=== PATIENT | female | born 1935 | race Caucasian/White ===

== ENCOUNTER 2016-03-27 08:32 | Outpatient (RCR) | payer MEDICARE ==
[2016-03-27 09:01] LABS: BASOPHILS % (AUTO) 1 % (0-2); EOSINOPHILS # (AUTO) 0.5 10^3uL; EOSINOPHILS % (AUTO) 5 % (0-4); LYMPHOCYTES # (AUTO) 2.4 X10^3; MEAN CORPUSCULAR HEMOGLOBIN 30.1 PG (26.0-34.0); MEAN CORPUSCULAR HGB CONC 33.1 g/dL (31.0-37.0); MEAN CORPUSCULAR VOLUME 91 FL (80-100); MEAN PLATELET VOLUME 10.5 FL (6.0-9.5); MONOCYTES # (AUTO) 1.3 X10^3; MONOCYTES % (AUTO) 12 % (3-11); NEUTROPHILS # (AUTO) 6.2 X10^3; NEUTROPHILS % (AUTO) 59 % (51-67); PLATELET COUNT 214 10^3uL (150-450); WHITE BLOOD COUNT 10.43 10^3uL (4.0-11.0)
[2016-03-27 09:18] LABS: ALBUMIN 4.1 g/dL (3.4-5.0); ANION GAP 16.2 MEQ/L (3-15); CALCULATED IONIZED CALCIUM 3.9 mg/dL (3.8-4.6); PHOSPHORUS 3.7 mg/dL (2.4-4.9); TOTAL PROTEIN 8.6 g/dL (6.4-8.5)
[2016-04-07 10:45] LABS: PML/RARA SPECIMEN BLOOD
[2016-06-19 16:09] LABS: MEAN CORPUSCULAR HEMOGLOBIN 30.8 PG (26.0-34.0); MEAN CORPUSCULAR HGB CONC 33.7 g/dL (31.0-37.0); MEAN CORPUSCULAR VOLUME 91 FL (80-100); MEAN PLATELET VOLUME 10.5 FL (6.0-9.5); PLATELET COUNT 207 10^3uL (150-450)
[2016-06-19 16:18] LABS: ALBUMIN 4.2 g/dL (3.4-5.0); ANION GAP 14.8 MEQ/L (3-15); CALCULATED IONIZED CALCIUM 3.6 mg/dL (3.8-4.6); TOTAL PROTEIN 8.2 g/dL (6.4-8.5)
[2016-06-19 16:48] LABS: BAND NEUTROPHILS % 0 % (0-6); EOSINOPHILS % 8 % (0-4); LYMPHOCYTES # 3.7 #; MONOCYTES % 11 % (3-11); RBC MORPH NORMAL (NORMAL); SEGMENTED NEUTROPHILS % 44 % (51-67); TOTAL CELLS COUNTED 100
== END 2016-06-25 | disposition home or self-care (01) ==
LOC: LAB 08:32
PROVIDERS: ATTEND Internal Medicine Hematology & Oncology
DX: Z85.79 Personal history of other malignant neoplasms of lymphoid, hematopoietic and related tissues (principal); C50.111 Malignant neoplasm of central portion of right female breast
CPT/HCPCS: 36415; 80053; 81315; 83615; 83735; 84100; 85007; 85025; 85027

== ENCOUNTER → 2016-06-29 | Outpatient (CLI) | payer MEDICARE | LOC: RAD 09:25 | PROVIDERS: ATTEND Internal Medicine Hematology & Oncology | DX: R94.5 Abnormal results of liver function studies (principal); Z90.49 Acquired absence of other specified parts of digestive tract | CPT/HCPCS: 76705 ==

== ENCOUNTER → 2016-09-04 | Outpatient (CLI) | payer MEDICARE ==
[~2016-09-04] MED LIST: ASPI-504 PO; ASPI-586 PO; ATN50T PO; BUME1TAB4 PO; FAMO20TA45 PO; HDR4T PO; HYDR12.56 PO; LABE100T PO; LABE300T2 PO; LETR2.5T PO; LINE600T; LISI5TAB14 PO; LSNP20T PO; MAGN400T26 PO; METO-274; MS15TCR; ONDA4TAB41 PO; ONDA4TAB8 PO; POSA200O PO; POTA20TA7 PO; PREG50CA2 PO; TRET10CA2 PO; [UNRECOGNIZED DRUG - OTHER] PO
[2016-09-04 08:42] LABS: BASOPHILS % (AUTO) 1 % (0-2); EOSINOPHILS # (AUTO) 0.3 10^3uL; EOSINOPHILS % (AUTO) 3 % (0-4); LYMPHOCYTES # (AUTO) 3.3 X10^3; MEAN CORPUSCULAR HEMOGLOBIN 31.1 PG (26.0-34.0); MEAN CORPUSCULAR HGB CONC 33.2 g/dL (31.0-37.0); MEAN CORPUSCULAR VOLUME 94 FL (80-100); MEAN PLATELET VOLUME 10.2 FL (6.0-9.5); MONOCYTES # (AUTO) 1.3 X10^3; MONOCYTES % (AUTO) 13 % (3-11); NEUTROPHILS # (AUTO) 4.7 X10^3; NEUTROPHILS % (AUTO) 49 % (51-67); PLATELET COUNT 155 10^3uL (150-450); WHITE BLOOD COUNT 9.59 10^3uL (4.0-11.0)
[2016-09-04 09:01] LABS: ALBUMIN 3.7 g/dL (3.4-5.0); ANION GAP 14.7 MEQ/L (3-15); CALCULATED IONIZED CALCIUM 3.6 mg/dL (3.8-4.6); TOTAL PROTEIN 8.3 g/dL (6.4-8.5)
[2016-09-07 13:51] LABS: PML/RARA SPECIMEN BLOOD
== END ==
LOC: LAB 05-15 08:11
PROVIDERS: ATTEND Internal Medicine Hematology & Oncology
DX: C50.111 Malignant neoplasm of central portion of right female breast (principal)
CPT/HCPCS: 36415; 80053; 81315; 83615; 83735; 84100; 85025

== ENCOUNTER 2016-09-28 17:44 | Emergency (ER) | payer MEDICARE ==
[~2016-09-28] VITALS: Ht 160 cm; Wt 76.0 kg
--- OUTSIDE RECORDS SUMMARY | 2016-09-28 17:50 | XMS REPORT ---
Author Author [facility], [facility] - Organization Unknown Address Unknown Phone Unavailable Allergies, Adverse Reactions, Alerts No Latex Allergy.No IV Contrast Allergy.No Known Drug Allergies.No Known Food Allergies.No Known Allergies. Problems Breathing Pattern ImpairmentStatus:Resolved. ChemotherapyStatus:Resolved. Fluid Volume High LevelStatus:Active. Fluid Volume Low Level RiskStatus:Resolved. Infection of SkinStatus:Active. Knowledge Low LevelStatus:Active. PainStatus: Resolved. PainStatus:Active. PancytopeniaStatus:Active. Procedures No Procedures Documented. Medication It is the responsibility of the patient or patient commissary representative to confirm the list of medications with either the patient's personal care provider or the patient's follow-up care provider to ensure the patient has an appropriate list of medications to take at home. Discharge medicationsondansetron 4 mg Tablet, Rapid Dissolve, Ordered By: Reyes Jaramillo Page Directions: 1 tablet oral every six hours PRN N/V USE THIRD - PO Additional Instructions: USE UNLESS UNABLE TO TAKE PO metoprolol succinate (ToPROL XL) 100 mg Tablet Extended Release 24 hr, Ordered By: Reyes Jaramillo Page Directions: 1 tablet oral twice a day magnesium oxide 400 mg Tablet, Ordered By: Reyes Jaramillo Page Directions: 1 tablet oral three times a day during meal Additional Instructions: EQ: 240 MG ELEMENTAL MAGNESIUM lisinopril 10 mg Tablet, Ordered By: Reyes Jaramillo Page Directions: 1 tablet oral daily at bedtime letrozole (FemARA) 2.5 mg Tablet, Ordered By: Reyes Jaramillo Page Directions: 1 tablet oral daily HYDROcodone-acetaminophen 5 mg-500 mg Tablet, Ordered By: Reyes Jaramillo Page Directions: 1-2 TAB oral Q3H PRN _ Moderate Pain dextromethorphan-guaifenesin 100 mg-10 mg/5 mL Syrup, Ordered By: Reyes Jaramillo Page Directions: 10 mL oral every four hours PRN COUGH bumetanide 1 mg Tablet, Ordered By: Reyes Vyas Directions: 2 tablet oral BID (9 16) potassium chloride (Klor-Con M20) 20 mEq Tablet, ER Particles/Crystals, Ordered By: Reyes Vyas Directions: 2 tablet oral twice a day during meal Additional Instructions: GIVE WITH MEALS OR FOOD Liposomal Amphotericin B 380 mg IV daily (in [facility]) Stopped medicationseye vitamin; 1 tablet oral daily; last taken at home unknown b12; 1 tablet oral daily; last taken at home unknown hydrochlorothiazide 25 mg Tablet Directions: 0.5 tablet oral daily atenolol 50 mg Tablet Directions: 1 tablet oral daily at bedtime laBETalol 300 mg Tablet Directions: 0.5 tablet oral twice a day pepcid; 1 tablet oral daily; last taken at home unknown LORazepam 0.5 mg Tablet Directions: 1 tablet oral 30 minutes before procedure- bone marrow biopsy PRN bone marrow biopsy Results LAB--BEDSIDE TESTING from 07/10/2012 1:24 PMGlucose NPT 157 mg/dL H (70-100 mg/dL )LAB--BEDSIDE TESTING from 07/15/2012 10:54 AMGlucose NPT 345 mg/dL H (70-100 mg /dL)LAB--BEDSIDE TESTING from 07/15/2012 3:36 PMGlucose NPT 307 mg/dL H (70-100 mg/dL)LAB--BEDSIDE TESTING from 07/15/2012 9:49 PMGlucose NPT 278 mg/dL H (70- 100 mg/dL)LAB--BEDSIDE TESTING from 07/16/2012 6:12 AMGlucose NPT 235 mg/dL H ( 70-100 mg/dL)LAB--BEDSIDE TESTING from 07/16/2012 9:20 AMGlucose NPT 255 mg/dL H (70-100 mg/dL)LAB--BEDSIDE TESTING from 07/16/2012 11:32 AMGlucose NPT 255 mg/ dL H (70-100 mg/dL)LAB--BEDSIDE TESTING from 07/16/2012 3:09 PMGlucose NPT 204 mg/dL H (70-100 mg/dL)LAB--BEDSIDE TESTING from 07/16/2012 11:04 PMGlucose NPT 269 mg/dL H (70-100 mg/dL)LAB--BEDSIDE TESTING from 07/17/2012 5:12 AMGlucose NPT 197 mg/dL H (70-100 mg/dL)LAB--BEDSIDE TESTING from 07/17/2012 10:28 AMGlucose NPT 290 mg/dL H (70-100 mg/dL)LAB--BEDSIDE TESTING from 07/17/2012 4: 10 PMGlucose NPT 220 mg/dL H (70-100 mg/dL)LAB--BEDSIDE TESTING from 07/17/2012 10:22 PMGlucose NPT 289 mg/dL H (70-100 mg/dL)LAB--BEDSIDE TESTING from 2012 5:13 AMGlucose NPT 221 mg/dL H (70-100 mg/dL)LAB--BEDSIDE TESTING from 11:06 AMGlucose NPT 284 mg/dL H (70-100 mg/dL)LAB--BEDSIDE TESTING from 07/18/2012 3:44 PMGlucose NPT 298 mg/dL H (70-100 mg/dL)LAB--BEDSIDE TESTING from 07/18/2012 10:02 PMGlucose NPT 257 mg/dL H (70-100 mg/dL)LAB-- BEDSIDE TESTING from 07/19/2012 5:14 AMGlucose NPT 219 mg/dL H (70-100 mg/dL)LAB --BEDSIDE TESTING from 07/19/2012 10:28 AMGlucose NPT 206 mg/dL H (70-100 mg/dL) LAB--BEDSIDE TESTING from 07/19/2012 4:08 PMGlucose NPT 308 mg/dL H (70-100 mg/ dL)LAB--BEDSIDE TESTING from 07/19/2012 10:45 PMGlucose NPT 276 mg/dL H (70-100 mg/dL)LAB--BEDSIDE TESTING from 07/20/2012 5:50 AMGlucose NPT 203 mg/dL H (70- 100 mg/dL)LAB--BEDSIDE TESTING from 07/20/2012 10:46 AMGlucose NPT 231 mg/dL H ( 70-100 mg/dL)LAB--BEDSIDE TESTING from 07/20/2012 3:16 PMGlucose NPT 368 mg/dL H (70-100 mg/dL)LAB--BEDSIDE TESTING from 07/20/2012 11:02 PMGlucose NPT 332 mg/ dL H (70-100 mg/dL)LAB--BEDSIDE TESTING from 07/21/2012 5:12 AMGlucose NPT 235 mg/dL H (70-100 mg/dL)LAB--BEDSIDE TESTING from 07/21/2012 11:32 AMGlucose NPT 211 mg/dL H (70-100 mg/dL)LAB--BEDSIDE TESTING from 07/21/2012 4:14 PMGlucose NPT 266 mg/dL H (70-100 mg/dL)LAB--BEDSIDE TESTING from 07/21/2012 9:31 PMGlucose NPT 284 mg/dL H (70-100 mg/dL)LAB--BEDSIDE TESTING from 07/22/2012 6: 11 AMGlucose NPT 194 mg/dL H (70-100 mg/dL)LAB--BEDSIDE TESTING from 07/22/2012 11:46 AMGlucose NPT 396 mg/dL H (70-100 mg/dL)LAB--BEDSIDE TESTING from 2012 3:16 PMGlucose NPT 226 mg/dL H (70-100 mg/dL)LAB--BEDSIDE TESTING from 11:00 PMGlucose NPT 322 mg/dL H (70-100 mg/dL)LAB--BEDSIDE TESTING from 07/23/2012 6:11 AMGlucose NPT 177 mg/dL H (70-100 mg/dL)LAB--BEDSIDE TESTING from 07/23/2012 10:37 AMGlucose NPT 171 mg/dL H (70-100 mg/dL)LAB-- BEDSIDE TESTING from 07/23/2012 5:23 PMGlucose NPT 307 mg/dL H (70-100 mg/dL)LAB --BEDSIDE TESTING from 07/23/2012 10:57 PMGlucose NPT 292 mg/dL H (70-100 mg/dL) LAB--BEDSIDE TESTING from 07/24/2012 5:38 AMGlucose NPT 219 mg/dL H (70-100 mg/ dL)LAB--BEDSIDE TESTING from 07/24/2012 11:47 AMGlucose NPT 194 mg/dL H (70-100 mg/dL)LAB--BEDSIDE TESTING from 07/24/2012 4:08 PMGlucose NPT 94 mg/dL (70-100 mg/dL)LAB--BEDSIDE TESTING from 07/24/2012 10:55 PMGlucose NPT 243 mg/dL H (70- 100 mg/dL)LAB--BEDSIDE TESTING from 07/25/2012 5:56 AMGlucose NPT 113 mg/dL H ( 70-100 mg/dL)LAB--BEDSIDE TESTING from 07/25/2012 10:25 AMGlucose NPT 139 mg/dL H (70-100 mg/dL)LAB--BEDSIDE TESTING from 07/25/2012 3:34 PMGlucose NPT 100 mg/ dL (70-100 mg/dL)LAB--BEDSIDE TESTING from 07/25/2012 8:44 PMGlucose NPT 182 mg/ dL H (70-100 mg/dL)LAB--BEDSIDE TESTING from 07/26/2012 6:08 AMGlucose NPT 96 mg /dL (70-100 mg/dL)LAB--BEDSIDE TESTING from 07/26/2012 10:01 AMGlucose NPT 122 mg/dL H (70-100 mg/dL)LAB--BEDSIDE TESTING from 07/26/2012 2:52 PMGlucose NPT 92 mg/dL (70-100 mg/dL)LAB--BEDSIDE TESTING from 07/26/2012 8:10 PMGlucose NPT 151 mg/dL H (70-100 mg/dL)LAB--BEDSIDE TESTING from 07/27/2012 5:07 AMGlucose NPT 99 mg/dL (70-100 mg/dL)LAB--BEDSIDE TESTING from 07/27/2012 11:13 AMGlucose NPT 103 mg/dL H (70-100 mg/dL)LAB--BEDSIDE TESTING from 07/27/2012 2:20 PMGlucose NPT 132 mg/dL H (70-100 mg/dL)LAB--BEDSIDE TESTING from 07/27/2012 10: 16 PMGlucose NPT 240 mg/dL H (70-100 mg/dL)LAB--BEDSIDE TESTING from 07/28/2012 4:54 AMGlucose NPT 154 mg/dL H (70-100 mg/dL)LAB--BEDSIDE TESTING from 2012 5:30 AMGlucose NPT 135 mg/dL H (70-100 mg/dL)LAB--BEDSIDE TESTING from 10:54 AMGlucose NPT 66 mg/dL L (70-100 mg/dL)LAB--BEDSIDE TESTING from 07/28/2012 11:47 AMGlucose NPT 89 mg/dL (70-100 mg/dL)LAB--BEDSIDE TESTING from 07/28/2012 2:54 PMGlucose NPT 97 mg/dL (70-100 mg/dL)LAB--BEDSIDE TESTING from 6:19 PMGlucose NPT 193 mg/dL H (70-100 mg/dL)LAB--BEDSIDE TESTING from 07/28/2012 9:23 PMGlucose NPT 248 mg/dL H (70-100 mg/dL)LAB--BEDSIDE TESTING from 07/29/2012 4:18 AMGlucose NPT 100 mg/dL (70-100 mg/dL)LAB--BEDSIDE TESTING from 07/29/2012 10:39 AMGlucose NPT 58 mg/dL L (70-100 mg/dL)LAB-- BEDSIDE TESTING from 07/29/2012 1:40 PMGlucose NPT 97 mg/dL (70-100 mg/dL)LAB-- BEDSIDE TESTING from 07/29/2012 2:56 PMGlucose NPT 81 mg/dL (70-100 mg/dL)LAB-- BEDSIDE TESTING from 07/29/2012 10:12 PMGlucose NPT 264 mg/dL H (70-100 mg/dL) LAB--BEDSIDE TESTING from 07/30/2012 5:57 AMGlucose NPT 62 mg/dL L (70-100 mg/dL )LAB--BEDSIDE TESTING from 07/30/2012 6:18 AMGlucose NPT 75 mg/dL (70-100 mg/dL) LAB--BEDSIDE TESTING from 07/30/2012 10:05 AMGlucose NPT 93 mg/dL (70-100 mg/dL) LAB--BEDSIDE TESTING from 07/30/2012 2:19 PMGlucose NPT 201 mg/dL H (70-100 mg/ dL)LAB--BEDSIDE TESTING from 07/30/2012 9:47 PMGlucose NPT 340 mg/dL H (70-100 mg/dL)LAB--BEDSIDE TESTING from 07/31/2012 6:25 AMGlucose NPT 123 mg/dL H (70- 100 mg/dL)LAB--BEDSIDE TESTING from 07/31/2012 10:03 AMGlucose NPT 106 mg/dL H ( 70-100 mg/dL)LAB--BEDSIDE TESTING from 07/31/2012 2:23 PMGlucose NPT 226 mg/dL H (70-100 mg/dL)LAB--BEDSIDE TESTING from 07/31/2012 8:47 PMGlucose NPT 289 mg/ dL H (70-100 mg/dL)LAB--BEDSIDE TESTING from 08/01/2012 5:54 AMGlucose NPT 156 mg/dL H (70-100 mg/dL)LAB--BEDSIDE TESTING from 08/01/2012 10:14 AMGlucose NPT 159 mg/dL H (70-100 mg/dL)LAB--BEDSIDE TESTING from 08/01/2012 2:25 PMGlucose NPT 98 mg/dL (70-100 mg/dL)LAB--BEDSIDE TESTING from 08/01/2012 9:06 PMGlucose NPT 205 mg/dL H (70-100 mg/dL)LAB--BEDSIDE TESTING from 08/02/2012 5:20 AMGlucose NPT 110 mg/dL H (70-100 mg/dL)LAB--BEDSIDE TESTING from 08/02/2012 10: 30 AMGlucose NPT 168 mg/dL H (70-100 mg/dL)LAB--BEDSIDE TESTING from 08/02/2012 2:42 PMGlucose NPT 192 mg/dL H (70-100 mg/dL)LAB--BEDSIDE TESTING from 2012 9:32 PMGlucose NPT 218 mg/dL H (70-100 mg/dL)LAB--BEDSIDE TESTING from 6:03 AMGlucose NPT 42 mg/dL L (70-100 mg/dL)LAB--BEDSIDE TESTING from 6:42 AMGlucose NPT 63 mg/dL L (70-100 mg/dL)LAB--BEDSIDE TESTING from 08/03/2012 10:46 AMGlucose NPT 147 mg/dL H (70-100 mg/dL)LAB--BEDSIDE TESTING from 08/03/2012 2:38 PMGlucose NPT 95 mg/dL (70-100 mg/dL)LAB--BEDSIDE TESTING from 08/03/2012 9:29 PMGlucose NPT 209 mg/dL H (70-100 mg/dL)LAB--BEDSIDE TESTING from 08/04/2012 4:40 AMGlucose NPT 185 mg/dL H (70-100 mg/dL)LAB-- BEDSIDE TESTING from 08/04/2012 10:19 AMGlucose NPT 265 mg/dL H (70-100 mg/dL) LAB--BEDSIDE TESTING from 08/04/2012 4:58 PMGlucose NPT 157 mg/dL H (70-100 mg/ dL)LAB--BEDSIDE TESTING from 08/04/2012 9:27 PMGlucose NPT 268 mg/dL H (70-100 mg/dL)LAB--BEDSIDE TESTING from 08/05/2012 5:56 AMGlucose NPT 208 mg/dL H (70- 100 mg/dL)LAB--BEDSIDE TESTING from 08/05/2012 11:23 AMGlucose NPT 174 mg/dL H ( 70-100 mg/dL)LAB--BEDSIDE TESTING from 08/05/2012 2:21 PMGlucose NPT 166 mg/dL H (70-100 mg/dL)LAB--BEDSIDE TESTING from 08/05/2012 8:58 PMGlucose NPT 251 mg/dL H (70-100 mg/dL)LAB--BEDSIDE TESTING from 08/06/2012 5:36 AMGlucose NPT 112 mg/ dL H (70-100 mg/dL)LAB--BEDSIDE TESTING from 08/06/2012 10:06 AMGlucose NPT 144 mg/dL H (70-100 mg/dL)LAB--BEDSIDE TESTING from 08/06/2012 2:17 PMGlucose NPT 141 mg/dL H (70-100 mg/dL)LAB--BEDSIDE TESTING from 08/06/2012 9:47 PMGlucose NPT 260 mg/dL H (70-100 mg/dL)LAB--BEDSIDE TESTING from 08/07/2012 5:33 AMGlucose NPT 168 mg/dL H (70-100 mg/dL)LAB--BEDSIDE TESTING from 08/07/2012 11:16 AMGlucose NPT 126 mg/dL H (70-100 mg/dL)LAB--BEDSIDE TESTING from 08/07/2012 3: 42 PMGlucose NPT 99 mg/dL (70-100 mg/dL)LAB--BEDSIDE TESTING from 08/07/2012 9: 41 PMGlucose NPT 264 mg/dL H (70-100 mg/dL)LAB--BEDSIDE TESTING from 08/08/2012 5 :44 AMGlucose NPT 116 mg/dL H (70-100 mg/dL)LAB--BEDSIDE TESTING from 08/08/2012 10:05 AMGlucose NPT 165 mg/dL H (70-100 mg/dL)LAB--BEDSIDE TESTING from 2012 2:37 PMGlucose NPT 184 mg/dL H (70-100 mg/dL)LAB--BEDSIDE TESTING from 08/08 9:35 PMGlucose NPT 238 mg/dL H (70-100 mg/dL)LAB--BEDSIDE TESTING from 08/09/2012 4:55 AMGlucose NPT 69 mg/dL L (70-100 mg/dL)LAB--BEDSIDE TESTING from 08/09/2012 11:25 AMGlucose NPT 160 mg/dL H (70-100 mg/dL)LAB--BEDSIDE TESTING from 08/09/2012 9:09 PMGlucose NPT 200 mg/dL H (70-100 mg/dL)LAB--BEDSIDE TESTING from 08/10/2012 5:10 AMGlucose NPT 94 mg/dL (70-100 mg/dL)LAB--BEDSIDE TESTING from 08/10/2012 2:14 PMGlucose NPT 118 mg/dL H (70-100 mg/dL)LAB--BEDSIDE TESTING from 08/10/2012 10:39 PMGlucose NPT 268 mg/dL H (70-100 mg/dL)LAB-- BEDSIDE TESTING from 08/11/2012 5:33 AMGlucose NPT 121 mg/dL H (70-100 mg/dL)LAB- -BEDSIDE TESTING from 08/11/2012 11:14 AMGlucose NPT 129 mg/dL H (70-100 mg/dL) LAB--BEDSIDE TESTING from 08/11/2012 4:03 PMGlucose NPT 123 mg/dL H (70-100 mg/dL )LAB--BEDSIDE TESTING from 08/11/2012 9:00 PMGlucose NPT 173 mg/dL H (70-100 mg/ dL)LAB--BEDSIDE TESTING from 08/12/2012 5:28 AMGlucose NPT 78 mg/dL (70-100 mg/dL )LAB--BEDSIDE TESTING from 08/12/2012 10:40 AMGlucose NPT 128 mg/dL H (70-100 mg/ dL)LAB--BEDSIDE TESTING from 08/12/2012 1:53 PMGlucose NPT 188 mg/dL H (70-100 mg /dL)LAB--BEDSIDE TESTING from 08/12/2012 9:31 PMGlucose NPT 181 mg/dL H (70-100 mg/dL)LAB--BEDSIDE TESTING from 08/13/2012 4:59 AMGlucose NPT 175 mg/dL H (70- 100 mg/dL)LAB--BEDSIDE TESTING from 08/13/2012 11:14 AMGlucose NPT 193 mg/dL H ( 70-100 mg/dL)LAB--BEDSIDE TESTING from 08/13/2012 9:12 PMGlucose NPT 174 mg/dL H (70-100 mg/dL)LAB--BEDSIDE TESTING from 08/14/2012 5:32 AMGlucose NPT 31 mg/dL L (70-100 mg/dL)LAB--BEDSIDE TESTING from 08/14/2012 5:53 AMGlucose NPT 95 mg/ dL (70-100 mg/dL)LAB--BEDSIDE TESTING from 08/14/2012 6:54 AMGlucose NPT 170 mg/ dL H (70-100 mg/dL)LAB--BEDSIDE TESTING from 08/14/2012 9:54 AMGlucose NPT 153 mg/dL H (70-100 mg/dL)LAB--BEDSIDE TESTING from 08/14/2012 2:27 PMGlucose NPT 210 mg/dL H (70-100 mg/dL)LAB--BEDSIDE TESTING from 08/14/2012 9:19 PMGlucose NPT 268 mg/dL H (70-100 mg/dL)LAB--BEDSIDE TESTING from 08/15/2012 1:58 AMGlucose NPT 99 mg/dL (70-100 mg/dL)LAB--BEDSIDE TESTING from 08/15/2012 3:42 AMGlucose NPT 107 mg/dL H (70-100 mg/dL)LAB--BEDSIDE TESTING from 08/15/2012 5: 39 AMGlucose NPT 111 mg/dL H (70-100 mg/dL)LAB--BEDSIDE TESTING from 08/15/2012 9:55 AMGlucose NPT 106 mg/dL H (70-100 mg/dL)LAB--BEDSIDE TESTING from 2012 6:19 PMGlucose NPT 239 mg/dL H (70-100 mg/dL)LAB--BEDSIDE TESTING from 03/2013 10:29 PMGlucose NPT 274 mg/dL H (70-100 mg/dL)LAB--BEDSIDE TESTING from 08/16/2012 5:12 AMGlucose NPT 166 mg/dL H (70-100 mg/dL)LAB--BEDSIDE TESTING from 08/16/2012 10:03 AMGlucose NPT 207 mg/dL H (70-100 mg/dL)LAB-- BEDSIDE TESTING from 08/16/2012 2:28 PMGlucose NPT 156 mg/dL H (70-100 mg/dL)LAB --BEDSIDE TESTING from 08/16/2012 8:45 PMGlucose NPT 267 mg/dL H (70-100 mg/dL) LAB--BEDSIDE TESTING from 08/17/2012 5:51 AMGlucose NPT 106 mg/dL H (70-100 mg/ dL)LAB--BEDSIDE TESTING from 08/17/2012 10:00 AMGlucose NPT 178 mg/dL H (70-100 mg/dL)LAB--BEDSIDE TESTING from 08/17/2012 2:33 PMGlucose NPT 175 mg/dL H (70- 100 mg/dL)LAB--BEDSIDE TESTING from 08/17/2012 10:16 PMGlucose NPT 194 mg/dL H ( 70-100 mg/dL)LAB--BEDSIDE TESTING from 08/18/2012 6:04 AMGlucose NPT 130 mg/dL H (70-100 mg/dL)LAB--BEDSIDE TESTING from 08/18/2012 10:28 AMGlucose NPT 155 mg/ dL H (70-100 mg/dL)LAB--BEDSIDE TESTING from 08/18/2012 2:54 PMGlucose NPT 148 mg/dL H (70-100 mg/dL)LAB--BEDSIDE TESTING from 08/18/2012 9:17 PMGlucose NPT 233 mg/dL H (70-100 mg/dL)LAB--BEDSIDE TESTING from 08/19/2012 5:49 AMGlucose NPT 141 mg/dL H (70-100 mg/dL)LAB--BEDSIDE TESTING from 08/19/2012 10:12 AMGlucose NPT 188 mg/dL H (70-100 mg/dL)LAB--BEDSIDE TESTING from 08/19/2012 2: 33 PMGlucose NPT 249 mg/dL H (70-100 mg/dL)LAB--BEDSIDE TESTING from 08/19/2012 10:17 PMGlucose NPT 245 mg/dL H (70-100 mg/dL)LAB--BEDSIDE TESTING from 2012 5:13 AMGlucose NPT 123 mg/dL H (70-100 mg/dL)LAB--BEDSIDE TESTING from 10:52 AMGlucose NPT 141 mg/dL H (70-100 mg/dL)LAB--BEDSIDE TESTING from 08/20/2012 2:59 PMGlucose NPT 192 mg/dL H (70-100 mg/dL)LAB--BEDSIDE TESTING from 08/20/2012 10:29 PMGlucose NPT 301 mg/dL H (70-100 mg/dL)LAB-- BEDSIDE TESTING from 08/21/2012 4:56 AMGlucose NPT 144 mg/dL H (70-100 mg/dL)LAB --BEDSIDE TESTING from 08/21/2012 10:43 AMGlucose NPT 157 mg/dL H (70-100 mg/dL) LAB--BEDSIDE TESTING from 08/21/2012 2:10 PMGlucose NPT 130 mg/dL H (70-100 mg/ dL)LAB--BEDSIDE TESTING from 08/21/2012 9:21 PMGlucose NPT 260 mg/dL H (70-100 mg/dL)LAB--BEDSIDE TESTING from 08/22/2012 5:03 AMGlucose NPT 117 mg/dL H (70- 100 mg/dL)LAB--BEDSIDE TESTING from 08/22/2012 10:54 AMGlucose NPT 136 mg/dL H ( 70-100 mg/dL)LAB--BEDSIDE TESTING from 08/22/2012 3:02 PMGlucose NPT 265 mg/dL H (70-100 mg/dL)LAB--BEDSIDE TESTING from 08/22/2012 10:01 PMGlucose NPT 262 mg/ dL H (70-100 mg/dL)LAB--BLOOD BANK from 07/09/2012 5:35 PMAntibody Screen ( Indirect Karishma) NEG ABO and Rh O POS LAB--BLOOD BANK from 07/09/2012 5:50 PMPlatelet Pheresis LR Irradiated PP LR IR #2 [id number] selected 07/09/12 17:50 LHOGA (Preliminary Result)LAB--BLOOD BANK from 07/09/2012 9:36 PMPlatelet Pheresis LR Irradiated PP LR IR #2 [id number] p.Transfus 21:36 LAB--BLOOD BANK from 07/09/2012 10:19 PMCryoprecipitate (Preliminary Result)CRY Pool Thawed [id number] selected 07/09/12 22:19 LHOGA CRY Pool Thawed [id number] selected 07/09/12 22:19 LHOGALAB-- BLOOD BANK from 07/09/2012 10:42 PMCryoprecipitate CRY Pool Thawed [id number] p.Transfus 07/09/12 22:42 CRY Pool Thawed [id number] p.Transfus 07/09/12 22:42LAB--BLOOD BANK from 07/10/2012 7:49 AMRed Blood Cells LR Irradiated RCLR IR -1 [id number] selected 07/10/12 07:49 SXCHA (Preliminary Result) Platelet Pheresis LR Irradiated PP LR IR #2 [id number] selected 07/10/12 07:49 SXCHA (Preliminary Result)LAB--BLOOD BANK from 07/10/2012 12: 55 PMPlatelet Pheresis LR Irradiated PP LR IR #2 [id number] p.Transfus 07/10/12 12:55 LAB--BLOOD BANK from 07/10/2012 1:01 PMRed Blood Cells LR Irradiated RCLR IR -1 [id number] selected 07/10/12 13:01 KEYUR (Preliminary Result)LAB--BLOOD BANK from 07/10/2012 3:29 PMRed Blood Cells LR Irradiated RCLR IR -1 [id number] p.Transfus 10/17 15:29 LAB--BLOOD BANK from 07/10/2012 8:33 PMRed Blood Cells LR Irradiated RCLR IR -1 [id number] p.Transfus 07/10/12 20:33 LAB--BLOOD BANK from 07/10/2012 9:38 PMPlatelet Pheresis LR Irradiated PP LR IR #2 [id number] selected 07/10/12 21:38 PORSHA (Preliminary Result)LAB-- BLOOD BANK from 07/10/2012 11:05 PMPlatelet Pheresis LR Irradiated PP LR IR [id number] selected 07/10/12 23:05 CSAL (Preliminary Result) LAB--BLOOD BANK from 07/10/2012 11:25 PMPlatelet Pheresis LR Irradiated PP LR IR [id number] p.Transfus 07/10/12 23:25 LAB--BLOOD BANK from 07/11/2012 9:18 AMPlatelet Pheresis LR Irradiated PP LR IR #2 [id number] selected 07/11/12 09:18 KEYUR (Preliminary Result)LAB--BLOOD BANK from 07/11/2012 9:21 AMPlatelet Pheresis LR Irradiated PP LR IR #2 [id number] p.Transfus 07/11/12 09:21 LAB--BLOOD BANK from 07/12/2012 2: 18 PMPlatelet Pheresis LR Irradiated PP LR IR [id number] selected 07/12/12 14:18 SETHUGH (Preliminary Result)LAB--BLOOD BANK from 07/12/2012 3:15 PMPlatelet Pheresis LR Irradiated PP LR IR [id number] p.Transfus 07/12/12 15:15 LAB--BLOOD BANK from 07/14/2012 8:43 AMPlatelet Pheresis LR Irradiated PP LR IR #2 [id number] selected 08:43 SXCHA (Preliminary Result)LAB--BLOOD BANK from 07/14/2012 9:54 AMPlatelet Pheresis LR Irradiated PP LR IR #2 [id number] p.Transfus 07/14/12 09:54 LAB--BLOOD BANK from 07/14/2012 10:00 AMCryoprecipitate (Preliminary Result)CRY Pool Thawed [id number] selected 07/14/12 10:00 [facility] CRY Pool Thawed [id number] selected 07/14/12 10:00 [facility] 07/14/2012 11:27 AMCryoprecipitate CRY Pool Thawed [id number] p.Transfus 07/14/12 11:27 LAB--BLOOD BANK from 07/14/2012 12:35 PMCryoprecipitate CRY Pool Thawed [id number] p.Transfus 07/14/12 12 :35 LAB--BLOOD BANK from 07/15/2012 6:53 PMCryoprecipitate (Preliminary Result) CRY Pool Thawed [id number] selected 07/15/12 18:53 LHOGA CRY Pool Thawed [id number] selected 07/15/12 18:53 LHOGALAB-- BLOOD BANK from 07/15/2012 7:16 PMCryoprecipitate CRY Pool Thawed [id number] p.Transfus 07/15/12 19:16 CRY Pool Thawed [id number] p.Transfus 07/15/12 19:16LAB--BLOOD BANK from 07/17/2012 11:36 PMCryoprecipitate (Preliminary Result)CRY Pool Thawed [id number] selected 07/17/12 23:36 SBARR CRY Pool Thawed [id number] selected 07/17/12 23:36 SBARRLAB-- BLOOD BANK from 07/17/2012 11:43 PMCryoprecipitate CRY Pool Thawed [id number] p.Transfus 07/17/12 23:43 CRY Pool Thawed [id number] p.Transfus 07/17/12 23:43LAB--BLOOD BANK from 07/18/2012 6:39 PMPlatelet Pheresis LR Irradiated PP LR IR #3 [id number] selected 07/18/12 18:39 PORSHA (Preliminary Result)LAB-- BLOOD BANK from 07/18/2012 10:22 PMPlatelet Pheresis LR Irradiated PP LR IR #3 [id number] p.Transfus 07/18/12 22:22 LAB--BLOOD BANK from 2012 5:30 PMCryoprecipitate (Preliminary Result)CRY Pool Thawed [id number] selected 07/20/12 17:30 PSAMM CRY Pool Thawed [id number] selected 07/20/12 17:30 PSAMMLAB-- BLOOD BANK from 07/20/2012 6:30 PMCryoprecipitate CRY Pool Thawed [id number] p.Transfus 07/20/12 18:30 CRY Pool Thawed [id number] p.Transfus 07/20/12 18:30LAB--BLOOD BANK from 07/21/2012 10:36 AMAntibody Screen (Indirect Karishma) NEG ABO and Rh O POS LAB--BLOOD BANK from 07/21/2012 11:30 AMRed Blood Cells LR Irradiated (Preliminary Result)RCLR IR -1 [id number] selected 07/21/12 11:30 CBROW RCLR IR -1 [id number] selected 07/21/12 11:30 CBROWLAB-- BLOOD BANK from 07/21/2012 12:39 PMRed Blood Cells LR Irradiated RCLR IR -1 [id number] p.Transfus 07/21/12 12:39 LAB--BLOOD BANK from 2012 6:07 PMRed Blood Cells LR Irradiated RCLR IR -1 [id number] p.Transfus 07/21/12 18:07 LAB--BLOOD BANK from 07/23/2012 8:23 AMPlatelet Pheresis LR Irradiated PP LR IR #3 [id number] selected 08:23 THUGH (Preliminary Result)LAB--BLOOD BANK from 07/23/2012 9:58 AMPlatelet Pheresis LR Irradiated PP LR IR #3 [id number] p.Transfus 07/23/12 09:58 LAB--BLOOD BANK from 07/23/2012 10:45 AMCryoprecipitate (Preliminary Result)CRY Pool Thawed [id number] selected 07/23/12 10:45 THUGH CRY Pool Thawed [id number] selected 07/23/12 10:45 THUGHLAB-- BLOOD BANK from 07/23/2012 11:11 AMCryoprecipitate CRY Pool Thawed [id number] p.Transfus 07/23/12 11:11 LAB--BLOOD BANK from 07/23/2012 11:44 AMCryoprecipitate CRY Pool Thawed [id number] p.Transfus 07/23/12 11 :44 LAB--BLOOD BANK from 07/24/2012 5:19 AMPlatelet Pheresis LR Irradiated PP LR IR #2 [id number] selected 07/24/12 05:19 SBARR ( Preliminary Result)LAB--BLOOD BANK from 07/24/2012 5:41 AMPlatelet Pheresis LR Irradiated PP LR IR #2 [id number] p.Transfus 07/24/12 05:41 LAB --BLOOD BANK from 07/24/2012 12:12 PMRed Blood Cells LR Irradiated RCLR IR -1 [id number] selected 07/24/12 12:12 THUGH (Preliminary Result )LAB--BLOOD BANK from 07/24/2012 12:24 PMRed Blood Cells LR Irradiated RCLR IR -1 [id number] p.Transfus 07/24/12 12:24 LAB--BLOOD BANK from 9:21 AMPlatelet Pheresis LR Irradiated PP LR IR #3 [id number] selected 07/25/12 09:21 THUGH (Preliminary Result)LAB--BLOOD BANK from 07/25/2012 2:12 PMPlatelet Pheresis LR Irradiated PP LR IR #3 [id number] p.Transfus 07/25/12 14:12 LAB--BLOOD BANK from 07/26/2012 9: 13 AMAntibody Screen (Indirect Karishma) NEG ABO and Rh O POS LAB--BLOOD BANK from 07/26/2012 9:55 AMRed Blood Cells LR Irradiated RCLR IR -1 [id number] selected 07/26/12 09:55 CCHER (Preliminary Result)LAB--BLOOD BANK from 07/26/2012 10:22 AMRed Blood Cells LR Irradiated RCLR IR -1 [id number] p.Transfus 07/26/12 10:22 LAB--BLOOD BANK from 07/27/2012 9:19 AMPlatelet Pheresis LR Irradiated PP LR IR #2 [id number] selected 07/27/12 09:19 CCHER ( Preliminary Result)LAB--BLOOD BANK from 07/27/2012 10:05 AMPlatelet Pheresis LR Irradiated PP LR IR #2 [id number] p.Transfus 07/27/12 10:05 LAB --BLOOD BANK from 07/29/2012 5:51 AMPlatelet Pheresis LR Irradiated PP LR IR #2 [id number] selected 07/29/12 05:51 REVER (Preliminary Result)LAB--BLOOD BANK from 07/29/2012 6:34 AMPlatelet Pheresis LR Irradiated PP LR IR #2 [id number] p.Transfus 07/29/12 06:34 LAB--BLOOD BANK from 07/31/2012 6:30 AMPlatelet Pheresis LR Irradiated PP LR IR #2 [id number] selected 07/31/12 06:30 CSAL (Preliminary Result)LAB-- BLOOD BANK from 07/31/2012 6:41 AMPlatelet Pheresis LR Irradiated PP LR IR #2 [id number] p.Transfus 07/31/12 06:41 LAB--BLOOD BANK from 2012 9:00 AMAntibody Screen (Indirect Karisham) NEG ABO and Rh O POS LAB--BLOOD BANK from 07/31/2012 9:56 AMRed Blood Cells LR Irradiated RCLR IR -1 [id number] selected 07/31/12 09:56 SXCHA (Preliminary Result)LAB--BLOOD BANK from 07/31/2012 10:38 AMRed Blood Cells LR Irradiated RCLR IR -1 [id number] p.Transfus 07/31/12 10:38 LAB--BLOOD BANK from 08/01/2012 6:14 AMPlatelet Pheresis LR Irradiated PP LR IR [id number] selected 08/01/12 06:14 SBARR ( Preliminary Result)LAB--BLOOD BANK from 08/01/2012 6:27 AMPlatelet Pheresis LR Irradiated PP LR IR [id number] p.Transfus 08/01/12 06:27 LAB --BLOOD BANK from 08/03/2012 9:44 AMPlatelet Pheresis LR Irradiated PP LR IR #2 [id number] selected 08/03/12 09:44 KEYUR (Preliminary Result)LAB--BLOOD BANK from 08/03/2012 11:09 AMPlatelet Pheresis LR Irradiated PP LR IR #2 [id number] p.Transfus 08/03/12 11:09 LAB--BLOOD BANK from 08/04/2012 10:27 AMABO and Rh O POS Antibody Screen (Indirect Karishma) NEG LAB--BLOOD BANK from 08/04/2012 11:10 AMRed Blood Cells LR Irradiated RCLR IR -1 [id number] selected 08/04/12 11:10 MSEVE (Preliminary Result)LAB--BLOOD BANK from 08/04/2012 11 :13 AMRed Blood Cells LR Irradiated RCLR IR -1 [id number] p.Transfus 08/04/12 11:13 LAB--BLOOD BANK from 08/06/2012 8:02 AMPlatelet Pheresis LR Irradiated PP LR IR #2 [id number] selected 08:02 SXCHA (Preliminary Result)LAB--BLOOD BANK from 08/06/2012 8:37 AMPlatelet Pheresis LR Irradiated PP LR IR #2 [id number] p.Transfus 08/06/12 08:37 LAB--BLOOD BANK from 08/09/2012 6:48 AMPlatelet Pheresis LR Irradiated PP LR IR #1 [id number] selected 06:48 MSEVE (Preliminary Result)LAB--BLOOD BANK from 08/09/2012 6:54 AMPlatelet Pheresis LR Irradiated PP LR IR #1 [id number] p.Transfus 08/09/12 06:54 LAB--BLOOD BANK from 08/10/2012 8:01 AMPlatelet Pheresis LR Irradiated PP LR IR #1 [id number] selected 08:01 CCHER (Preliminary Result)LAB--BLOOD BANK from 08/10/2012 12:10 PMPlatelet Pheresis LR Irradiated PP LR IR #1 [id number] p.Transfus 08/10/12 12:10 LAB--BLOOD BANK from 08/11/2012 11:50 AMPlatelet Pheresis LR Irradiated PP LR IR #3 [id number] selected 11:50 CBROW (Preliminary Result)LAB--BLOOD BANK from 08/11/2012 1:03 PMPlatelet Pheresis LR Irradiated PP LR IR #3 [id number] p.Transfus 08/11/12 13:03 LAB--BLOOD BANK from 08/12/2012 8:43 AMPlatelet Pheresis LR Irradiated PP LR IR #2 [id number] selected 08:43 MSEVE (Preliminary Result)LAB--BLOOD BANK from 08/12/2012 10:32 AMABO and Rh O POS Antibody Screen (Indirect Karishma) NEG LAB--BLOOD BANK from 08/12/2012 11:18 AMRed Blood Cells LR Irradiated (Preliminary Result)RCLR IR -1 [id number] selected 08/12/12 11:18 KEYUR RCLR IR -1 [id number] selected 08/12/12 11:18 [facility]-- BLOOD BANK from 08/12/2012 11:42 AMRed Blood Cells LR Irradiated RCLR IR -1 [id number] p.Transfus 08/12/12 11:42 LAB--BLOOD BANK from 08/13/2012 1:22 PMPlatelet Pheresis LR Irradiated LAB--CHEMISTRY from 07/09/2012 4:02 PMPotassium 3.4 mEq/L L (3.6-5.1 mEq/L) Magnesium 1.7 mg/dL L (1.8-2.5 mg/dL) Sodium 123 mEq/L L (136-144 mEq/L) LDH 285 U/L H (98-192 U/L) Phosphorus 4.4 mg/dL (2.4-4.7 mg/dL) Protein 6.4 g/dL (6.1-7.9 g/dL) Chloride 84 mEq/L L (99-109 mEq/L) CO2 25 mEq/L (22-32 mEq/L) Creatinine 0.86 mg/dL (0.44-1.03 mg/dL) eGFR >60 (>60- ) Globulin 2.5 g/dL (1.9-4.3 g/dL) Glucose 130 mg/dL H (70-100 mg/dL) Albumin 3.9 g/dL (3.5-4.8 g/dL) Alkaline Phosphatase 39 U/L (26-104 U/L) ALT (SGPT) 15 U/L (14-54 U/L) AST (SGOT) 25 U/L (15-41 U/L) Bilirubin Total 1.7 mg/dL H (0.2-1.2 mg/dL) BUN 15 mg/dL (4-20 mg/dL) Calcium 9.1 mg/dL (8.6-10.0 mg/dL) Calcium Ionized 1.20 mmol/L (1.19-1.41 mmol/L) Anion Gap 14 (3-20 )LAB--CHEMISTRY from 07/10/2012 3:51 AMPotassium 3.3 mEq/L L ( 3.6-5.1 mEq/L) LDH 253 U/L H (98-192 U/L) Sodium 129 mEq/L L (136-144 mEq/L) Protein 5.8 g/dL L (6.1-7.9 g/dL) Chloride 92 mEq/L L (99-109 mEq/L) CO2 29 mEq/L (22-32 mEq/L) Creatinine 0.87 mg/dL (0.44-1.03 mg/dL) eGFR >60 (>60- ) Globulin 2.5 g/dL (1.9-4.3 g/dL) Glucose 129 mg/dL H (70-100 mg/dL) Albumin 3.3 g/dL L (3.5-4.8 g/dL) Alkaline Phosphatase 38 U/L (26-104 U/L) ALT (SGPT) 15 U/L (14-54 U/L) AST (SGOT) 22 U/L (15-41 U/L) Bilirubin Total 1.3 mg/dL H (0.2-1.2 mg/dL) BUN 15 mg/dL (4-20 mg/dL) Calcium 8.7 mg/dL (8.6-10.0 mg/dL) Anion Gap 8 (3-20 )LAB--CHEMISTRY from 07/11/2012 4:59 AMPotassium 3.5 mEq/L L ( 3.6-5.1 mEq/L) LDH 286 U/L H (98-192 U/L) Sodium 126 mEq/L L (136-144 mEq/L) Phosphorus 4.1 mg/dL (2.4-4.7 mg/dL) Protein 5.9 g/dL L (6.1-7.9 g/dL) Chloride 93 mEq/L L (99-109 mEq/L) CO2 23 mEq/L (22-32 mEq/L) Creatinine 1.15 mg/dL H (0.44-1.03 mg/dL) eGFR 46 A (>60- ) Globulin 2.7 g/dL (1.9-4.3 g/dL) Glucose 153 mg/dL H (70-100 mg/dL) Albumin 3.2 g/dL L (3.5-4.8 g/dL) Alkaline Phosphatase 62 U/L (26-104 U/L) ALT (SGPT) 44 U/L (14-54 U/L) AST (SGOT) 62 U/L H (15-41 U/L) Bilirubin Total 2.4 mg/dL H (0.2-1.2 mg/dL) BUN 29 mg/dL H (4-20 mg/dL) Calcium 8.2 mg/dL L (8.6-10.0 mg/dL) Anion Gap 10 (3-20 )LAB--CHEMISTRY from 07/12/2012 5:18 AMPotassium 3.8 mEq/L ( 3.6-5.1 mEq/L) LDH 275 U/L H (98-192 U/L) Magnesium 2.1 mg/dL (1.8-2.5 mg/dL) Sodium 126 mEq/L L (136-144 mEq/L) Phosphorus 2.7 mg/dL (2.4-4.7 mg/dL) Protein 5.7 g/dL L (6.1-7.9 g/dL) Chloride 92 mEq/L L (99-109 mEq/L) CO2 22 mEq/L (22-32 mEq/L) Creatinine 0.86 mg/dL (0.44-1.03 mg/dL) eGFR >60 (>60- ) Globulin 2.6 g/dL (1.9-4.3 g/dL) Glucose 153 mg/dL H (70-100 mg/dL) Albumin 3.1 g/dL L (3.5-4.8 g/dL) Alkaline Phosphatase 60 U/L (26-104 U/L) ALT (SGPT) 44 U/L (14-54 U/L) AST (SGOT) 48 U/L H (15-41 U/L) Bilirubin Total 1.5 mg/dL H (0.2-1.2 mg/dL) BUN 26 mg/dL H (4-20 mg/dL) Calcium 8.2 mg/dL L (8.6-10.0 mg/dL) Calcium Ionized 1.11 mmol/L L (1.19-1.41 mmol/L) Anion Gap 12 (3-20 )LAB--CHEMISTRY from 07/13/2012 6:33 AMPotassium 3.9 mEq/L ( 3.6-5.1 mEq/L) LDH 305 U/L H (98-192 U/L) Magnesium 2.3 mg/dL (1.8-2.5 mg/dL) Sodium 123 mEq/L L (136-144 mEq/L) Phosphorus 2.6 mg/dL (2.4-4.7 mg/dL) Protein 5.5 g/dL L (6.1-7.9 g/dL) Chloride 92 mEq/L L (99-109 mEq/L) CO2 22 mEq/L (22-32 mEq/L) Creatinine 0.83 mg/dL (0.44-1.03 mg/dL) eGFR >60 (>60- ) Globulin 2.4 g/dL (1.9-4.3 g/dL) Glucose 208 mg/dL H (70-100 mg/dL) Albumin 3.1 g/dL L (3.5-4.8 g/dL) Alkaline Phosphatase 60 U/L (26-104 U/L) ALT (SGPT) 39 U/L (14-54 U/L) AST (SGOT) 31 U/L (15-41 U/L) Bilirubin Total 1.3 mg/dL H (0.2-1.2 mg/dL) BUN 26 mg/dL H (4-20 mg/dL) Calcium 8.4 mg/dL L (8.6-10.0 mg/dL) Calcium Ionized 1.19 mmol/L (1.19-1.41 mmol/L) Anion Gap 9 (3-20 )LAB--CHEMISTRY from 07/14/2012 6:57 AMPotassium 4.1 mEq/L ( 3.6-5.1 mEq/L) LDH 502 U/L H (98-192 U/L) Magnesium 2.4 mg/dL (1.8-2.5 mg/dL) Sodium 125 mEq/L L (136-144 mEq/L) Phosphorus 2.3 mg/dL L (2.4-4.7 mg/dL) Protein 5.8 g/dL L (6.1-7.9 g/dL) Chloride 93 mEq/L L (99-109 mEq/L) CO2 23 mEq/L (22-32 mEq/L) Creatinine 0.82 mg/dL (0.44-1.03 mg/dL) eGFR >60 (>60- ) Globulin 2.9 g/dL (1.9-4.3 g/dL) Glucose 263 mg/dL H (70-100 mg/dL) Albumin 2.9 g/dL L (3.5-4.8 g/dL) Alkaline Phosphatase 75 U/L (26-104 U/L) ALT (SGPT) 31 U/L (14-54 U/L) AST (SGOT) 29 U/L (15-41 U/L) Bilirubin Total 1.2 mg/dL (0.2-1.2 mg/dL) BUN 32 mg/dL H (4-20 mg/dL) Calcium 8.9 mg/dL (8.6-10.0 mg/dL) Calcium Ionized 1.29 mmol/L (1.19-1.41 mmol/L) Anion Gap 9 (3-20 )LAB--CHEMISTRY from 07/15/2012 5:20 AMPotassium 4.4 mEq/L ( 3.6-5.1 mEq/L) Magnesium 2.3 mg/dL (1.8-2.5 mg/dL) LDH 659 U/L H (98-192 U/L) Sodium 124 mEq/L L (136-144 mEq/L) Phosphorus 2.6 mg/dL (2.4-4.7 mg/dL) Protein 5.9 g/dL L (6.1-7.9 g/dL) Calcium Ionized 1.35 mmol/L (1.19-1.41 mmol/L) Chloride 92 mEq/L L (99-109 mEq/L) CO2 22 mEq/L (22-32 mEq/L) Creatinine 0.88 mg/dL (0.44-1.03 mg/dL) eGFR >60 (>60- ) Globulin 2.9 g/dL (1.9-4.3 g/dL) Glucose 281 mg/dL H (70-100 mg/dL) Albumin 3.0 g/dL L (3.5-4.8 g/dL) Alkaline Phosphatase 75 U/L (26-104 U/L) ALT (SGPT) 26 U/L (14-54 U/L) AST (SGOT) 30 U/L (15-41 U/L) Bilirubin Total 1.1 mg/dL (0.2-1.2 mg/dL) BUN 36 mg/dL H (4-20 mg/dL) Calcium 9.1 mg/dL (8.6-10.0 mg/dL) Anion Gap 10 (3-20 )LAB--CHEMISTRY from 07/16/2012 4:40 AMPotassium 4.5 mEq/L ( 3.6-5.1 mEq/L) LDH 884 U/L H (98-192 U/L) Magnesium 2.1 mg/dL (1.8-2.5 mg/dL) Sodium 126 mEq/L L (136-144 mEq/L) Phosphorus 3.3 mg/dL (2.4-4.7 mg/dL) Protein 5.8 g/dL L (6.1-7.9 g/dL) Chloride 93 mEq/L L (99-109 mEq/L) Calcium Ionized 1.31 mmol/L (1.19-1.41 mmol/L) CO2 25 mEq/L (22-32 mEq/L) Creatinine 0.92 mg/dL (0.44-1.03 mg/dL) eGFR 59 A (>60- ) Globulin 2.7 g/dL (1.9-4.3 g/dL) Glucose 208 mg/dL H (70-100 mg/dL) Albumin 3.1 g/dL L (3.5-4.8 g/dL) Alkaline Phosphatase 61 U/L (26-104 U/L) ALT (SGPT) 33 U/L (14-54 U/L) AST (SGOT) 47 U/L H (15-41 U/L) Bilirubin Total 1.0 mg/dL (0.2-1.2 mg/dL) BUN 42 mg/dL H (4-20 mg/dL) Calcium 9.5 mg/dL (8.6-10.0 mg/dL) Anion Gap 8 (3-20 )LAB--CHEMISTRY from 07/17/2012 5:11 AMPotassium 5.1 mEq/L ( 3.6-5.1 mEq/L) LDH 1212 U/L H (98-192 U/L) Magnesium 2.3 mg/dL (1.8-2.5 mg/dL) Sodium 125 mEq/L L (136-144 mEq/L) Phosphorus 4.8 mg/dL H (2.4-4.7 mg/dL) Protein 5.8 g/dL L (6.1-7.9 g/dL) Uric Acid 5.4 mg/dL (2.6-8.0 mg/dL) Chloride 91 mEq/L L (99-109 mEq/L) Calcium Ionized 1.36 mmol/L (1.19-1.41 mmol/L) CO2 24 mEq/L (22-32 mEq/L) Creatinine 1.09 mg/dL H (0.44-1.03 mg/dL) eGFR 49 A (>60- ) Globulin 2.7 g/dL (1.9-4.3 g/dL) Glucose 203 mg/dL H (70-100 mg/dL) Albumin 3.1 g/dL L (3.5-4.8 g/dL) Alkaline Phosphatase 64 U/L (26-104 U/L) ALT (SGPT) 33 U/L (14-54 U/L) AST (SGOT) 54 U/L H (15-41 U/L) Bilirubin Total 1.0 mg/dL (0.2-1.2 mg/dL) BUN 54 mg/dL H (4-20 mg/dL) Calcium 9.4 mg/dL (8.6-10.0 mg/dL) Anion Gap 10 (3-20 )LAB--CHEMISTRY from 07/18/2012 4:34 AMPotassium 4.3 mEq/L ( 3.6-5.1 mEq/L) LDH 1497 U/L H (98-192 U/L) Magnesium 2.2 mg/dL (1.8-2.5 mg/dL) Sodium 122 mEq/L L (136-144 mEq/L) Phosphorus 4.8 mg/dL H (2.4-4.7 mg/dL) Protein 5.5 g/dL L (6.1-7.9 g/dL) Uric Acid 5.3 mg/dL (2.6-8.0 mg/dL) Calcium Ionized 1.24 mmol/L (1.19-1.41 mmol/L) Chloride 89 mEq/L L (99-109 mEq/L) CO2 23 mEq/L (22-32 mEq/L) Creatinine 1.10 mg/dL H (0.44-1.03 mg/dL) eGFR 48 A (>60- ) Globulin 2.6 g/dL (1.9-4.3 g/dL) Glucose 206 mg/dL H (70-100 mg/dL) Albumin 2.9 g/dL L (3.5-4.8 g/dL) Alkaline Phosphatase 70 U/L (26-104 U/L) ALT (SGPT) 30 U/L (14-54 U/L) AST (SGOT) 61 U/L H (15-41 U/L) Bilirubin Total 0.8 mg/dL (0.2-1.2 mg/dL) BUN 61 mg/dL H (4-20 mg/dL) Calcium 8.9 mg/dL (8.6-10.0 mg/dL) Anion Gap 10 (3-20 )LAB--CHEMISTRY from 07/19/2012 6:55 AMPotassium 4.8 mEq/L ( 3.6-5.1 mEq/L) LDH 1313 U/L H (98-192 U/L) Magnesium 2.4 mg/dL (1.8-2.5 mg/dL) Sodium 124 mEq/L L (136-144 mEq/L) Phosphorus 4.6 mg/dL (2.4-4.7 mg/dL) Protein 5.7 g/dL L (6.1-7.9 g/dL) Uric Acid 4.7 mg/dL (2.6-8.0 mg/dL) Chloride 91 mEq/L L (99-109 mEq/L) Calcium Ionized 1.33 mmol/L (1.19-1.41 mmol/L) CO2 22 mEq/L (22-32 mEq/L) Creatinine 1.13 mg/dL H (0.44-1.03 mg/dL) eGFR 47 A (>60- ) Globulin 2.7 g/dL (1.9-4.3 g/dL) Glucose 188 mg/dL H (70-100 mg/dL) Albumin 3.0 g/dL L (3.5-4.8 g/dL) Alkaline Phosphatase 73 U/L (26-104 U/L) ALT (SGPT) 26 U/L (14-54 U/L) AST (SGOT) 61 U/L H (15-41 U/L) Bilirubin Total 0.9 mg/dL (0.2-1.2 mg/dL) BUN 63 mg/dL H (4-20 mg/dL) Calcium 9.3 mg/dL (8.6-10.0 mg/dL) Anion Gap 11 (3-20 )LAB--CHEMISTRY from 07/20/2012 6:03 AMPotassium 4.9 mEq/L ( 3.6-5.1 mEq/L) LDH 1083 U/L H (98-192 U/L) Magnesium 2.4 mg/dL (1.8-2.5 mg/dL) Sodium 123 mEq/L L (136-144 mEq/L) Phosphorus 4.8 mg/dL H (2.4-4.7 mg/dL) Protein 5.0 g/dL L (6.1-7.9 g/dL) Uric Acid 4.4 mg/dL (2.6-8.0 mg/dL) Calcium Ionized 1.24 mmol/L (1.19-1.41 mmol/L) Chloride 90 mEq/L L (99-109 mEq/L) CO2 25 mEq/L (22-32 mEq/L) Creatinine 1.24 mg/dL H (0.44-1.03 mg/dL) eGFR 42 A (>60- ) Globulin 2.2 g/dL (1.9-4.3 g/dL) Glucose 189 mg/dL H (70-100 mg/dL) Albumin 2.8 g/dL L (3.5-4.8 g/dL) Alkaline Phosphatase 72 U/L (26-104 U/L) ALT (SGPT) 25 U/L (14-54 U/L) AST (SGOT) 51 U/L H (15-41 U/L) Bilirubin Total 0.7 mg/dL (0.2-1.2 mg/dL) BUN 68 mg/dL H (4-20 mg/dL) Calcium 8.7 mg/dL (8.6-10.0 mg/dL) Anion Gap 8 (3-20 )LAB--CHEMISTRY from 07/21/2012 6:10 AMPotassium 4.7 mEq/L ( 3.6-5.1 mEq/L) LDH 735 U/L H (98-192 U/L) Magnesium 2.4 mg/dL (1.8-2.5 mg/dL) Sodium 125 mEq/L L (136-144 mEq/L) Phosphorus 5.0 mg/dL H (2.4-4.7 mg/dL) Protein 5.0 g/dL L (6.1-7.9 g/dL) Uric Acid 4.3 mg/dL (2.6-8.0 mg/dL) Calcium Ionized 1.21 mmol/L (1.19-1.41 mmol/L) Chloride 93 mEq/L L (99-109 mEq/L) CO2 24 mEq/L (22-32 mEq/L) Creatinine 1.17 mg/dL H (0.44-1.03 mg/dL) eGFR 45 A (>60- ) Globulin 2.2 g/dL (1.9-4.3 g/dL) Glucose 192 mg/dL H (70-100 mg/dL) Albumin 2.8 g/dL L (3.5-4.8 g/dL) Alkaline Phosphatase 73 U/L (26-104 U/L) ALT (SGPT) 27 U/L (14-54 U/L) AST (SGOT) 45 U/L H (15-41 U/L) Bilirubin Total 0.8 mg/dL (0.2-1.2 mg/dL) BUN 72 mg/dL H (4-20 mg/dL) Calcium 8.6 mg/dL (8.6-10.0 mg/dL) Anion Gap 8 (3-20 )LAB--CHEMISTRY from 07/22/2012 4:50 AMPotassium 5.2 mEq/L H ( 3.6-5.1 mEq/L) LDH 654 U/L H (98-192 U/L) Magnesium 2.5 mg/dL (1.8-2.5 mg/dL) Sodium 127 mEq/L L (136-144 mEq/L) Phosphorus 5.3 mg/dL H (2.4-4.7 mg/dL) Protein 5.1 g/dL L (6.1-7.9 g/dL) Uric Acid 3.9 mg/dL (2.6-8.0 mg/dL) Chloride 94 mEq/L L (99-109 mEq/L) Calcium Ionized 1.24 mmol/L (1.19-1.41 mmol/L) CO2 24 mEq/L (22-32 mEq/L) Creatinine 1.09 mg/dL H (0.44-1.03 mg/dL) eGFR 49 A (>60- ) Globulin 2.3 g/dL (1.9-4.3 g/dL) Glucose 157 mg/dL H (70-100 mg/dL) Anion Gap 9 (3-20 ) Albumin 2.8 g/dL L (3.5-4.8 g/dL) Alkaline Phosphatase 72 U/L (26-104 U/L) ALT (SGPT) 36 U/L (14-54 U/L) AST (SGOT) 49 U/L H (15-41 U/L) Bilirubin Total 0.9 mg/dL (0.2-1.2 mg/dL) BUN 73 mg/dL H (4-20 mg/dL) Calcium 8.7 mg/dL (8.6-10.0 mg/dL)LAB--CHEMISTRY from 07/23/2012 6:46 AMPotassium 4.6 mEq/L (3.6-5.1 mEq/L) LDH 497 U/L H (98-192 U/L) Magnesium 2.4 mg/dL (1.8-2.5 mg/dL) Sodium 131 mEq/L L (136-144 mEq/L) Phosphorus 5.2 mg/dL H (2.4-4.7 mg/dL) Protein 5.1 g/dL L (6.1-7.9 g/dL) Uric Acid 3.7 mg/dL (2.6-8.0 mg/dL) Chloride 94 mEq/L L (99-109 mEq/L) Calcium Ionized 1.29 mmol/L (1.19-1.41 mmol/L) CO2 24 mEq/L (22-32 mEq/L) Creatinine 1.01 mg/dL (0.44-1.03 mg/dL) eGFR 53 A (>60- ) Globulin 2.2 g/dL (1.9-4.3 g/dL) Glucose 150 mg/dL H (70-100 mg/dL) Anion Gap 13 (3-20 ) Albumin 2.9 g/dL L (3.5-4.8 g/dL) Alkaline Phosphatase 80 U/L (26-104 U/L) ALT (SGPT) 49 U/L (14-54 U/L) AST (SGOT) 55 U/L H (15-41 U/L) Bilirubin Total 1.1 mg/dL (0.2-1.2 mg/dL) BUN 74 mg/dL H (4-20 mg/dL) Calcium 8.8 mg/dL (8.6-10.0 mg/dL)LAB--CHEMISTRY from 07/24/2012 4:34 AMPotassium 4.1 mEq/L (3.6-5.1 mEq/L) LDH 399 U/L H (98-192 U/L) Magnesium 2.4 mg/dL (1.8-2.5 mg/dL) Sodium 133 mEq/L L (136-144 mEq/L) Phosphorus 4.6 mg/dL (2.4-4.7 mg/dL) Protein 4.9 g/dL L (6.1-7.9 g/dL) Uric Acid 3.5 mg/dL (2.6-8.0 mg/dL) Chloride 99 mEq/L (99-109 mEq/L) Calcium Ionized 1.32 mmol/L (1.19-1.41 mmol/L) CO2 26 mEq/L (22-32 mEq/L) Creatinine 0.94 mg/dL (0.44-1.03 mg/dL) eGFR 58 A (>60- ) Globulin 2.2 g/dL (1.9-4.3 g/dL) Glucose 193 mg/dL H (70-100 mg/dL) Anion Gap 8 (3-20 ) Albumin 2.7 g/dL L (3.5-4.8 g/dL) Alkaline Phosphatase 84 U/L (26-104 U/L) ALT (SGPT) 55 U/L H (14-54 U/L) AST (SGOT) 53 U/L H (15-41 U/L) Bilirubin Total 1.0 mg/dL (0.2-1.2 mg/dL) BUN 73 mg/dL H (4-20 mg/dL) Calcium 8.7 mg/dL (8.6-10.0 mg/dL)LAB--CHEMISTRY from 07/25/2012 4:20 AMPotassium 3.9 mEq/L (3.6-5.1 mEq/L) Magnesium 2.4 mg/dL (1.8-2.5 mg/dL) LDH 377 U/L H (98-192 U/L) Sodium 137 mEq/L (136-144 mEq/L) Phosphorus 4.3 mg/dL (2.4-4.7 mg/dL) Protein 5.1 g/dL L (6.1-7.9 g/dL) Uric Acid 3.4 mg/dL (2.6-8.0 mg/dL) Calcium Ionized 1.21 mmol/L (1.19-1.41 mmol/L) Chloride 102 mEq/L (99-109 mEq/L) CO2 27 mEq/L (22-32 mEq/L) Creatinine 0.94 mg/dL (0.44-1.03 mg/dL) eGFR 58 A (>60- ) Globulin 2.4 g/dL (1.9-4.3 g/dL) Glucose 124 mg/dL H (70-100 mg/dL) Anion Gap 8 (3-20 ) Albumin 2.7 g/dL L (3.5-4.8 g/dL) Alkaline Phosphatase 87 U/L (26-104 U/L) ALT (SGPT) 61 U/L H (14-54 U/L) AST (SGOT) 58 U/L H (15-41 U/L) Bilirubin Total 1.0 mg/dL (0.2-1.2 mg/dL) BUN 68 mg/dL H (4-20 mg/dL) Calcium 8.6 mg/dL (8.6-10.0 mg/dL)LAB--CHEMISTRY from 07/26/2012 3:58 AMPotassium 3.7 mEq/L (3.6-5.1 mEq/L) LDH 320 U/L H (98-192 U/L) Magnesium 2.2 mg/dL (1.8-2.5 mg/dL) Sodium 138 mEq/L (136-144 mEq/L) Phosphorus 3.8 mg/dL (2.4-4.7 mg/dL) Protein 4.7 g/dL L (6.1-7.9 g/dL) Uric Acid 3.1 mg/dL (2.6-8.0 mg/dL) Calcium Ionized 1.28 mmol/L (1.19-1.41 mmol/L) Chloride 104 mEq/L (99-109 mEq/L) CO2 28 mEq/L (22-32 mEq/L) Creatinine 0.78 mg/dL (0.44-1.03 mg/dL) eGFR >60 (>60- ) Globulin 1.9 g/dL (1.9-4.3 g/dL) Glucose 147 mg/dL H (70-100 mg/dL) Anion Gap 6 (3-20 ) Albumin 2.8 g/dL L (3.5-4.8 g/dL) Alkaline Phosphatase 75 U/L (26-104 U/L) ALT (SGPT) 61 U/L H (14-54 U/L) AST (SGOT) 52 U/L H (15-41 U/L) Bilirubin Total 0.7 mg/dL (0.2-1.2 mg/dL) BUN 63 mg/dL H (4-20 mg/dL) Calcium 8.5 mg/dL L (8.6-10.0 mg/dL)LAB--CHEMISTRY from 07/27/2012 4:51 AMPotassium 3.6 mEq/L (3.6-5.1 mEq/L) Sodium 139 mEq/L (136-144 mEq/L) Chloride 102 mEq/L (99-109 mEq/L) CO2 30 mEq/L (22-32 mEq/L) Creatinine 0.70 mg/dL (0.44-1.03 mg/dL) eGFR >60 (>60- ) Glucose 103 mg/dL H (70-100 mg/dL) Anion Gap 7 (3-20 ) BUN 55 mg/dL H (4-20 mg/dL) Calcium 8.5 mg/dL L (8.6-10.0 mg/dL)LAB--CHEMISTRY from 07/27/2012 9:00 AMMagnesium 2.2 mg/dL (1.8-2.5 mg/dL)LAB--CHEMISTRY from 07/28/2012 5:25 AMPotassium 4.0 mEq/L (3.6-5.1 mEq/L) Magnesium 2.1 mg/dL (1.8-2.5 mg/dL) Sodium 140 mEq/L (136-144 mEq/L) Chloride 103 mEq/L (99-109 mEq/L) CO2 32 mEq/L (22-32 mEq/L) Creatinine 0.67 mg/dL (0.44-1.03 mg/dL) eGFR >60 (>60- ) Glucose 135 mg/dL H (70-100 mg/dL) Anion Gap 5 (3-20 ) BUN 52 mg/dL H (4-20 mg/dL) Calcium 8.2 mg/dL L (8.6-10.0 mg/dL)LAB--CHEMISTRY from 07/29/2012 4:26 AMPotassium 4.3 mEq/L (3.6-5.1 mEq/L) Magnesium 2.0 mg/dL (1.8-2.5 mg/dL) Sodium 139 mEq/L (136-144 mEq/L) Chloride 103 mEq/L (99-109 mEq/L) CO2 30 mEq/L (22-32 mEq/L) Creatinine 0.69 mg/dL (0.44-1.03 mg/dL) eGFR >60 (>60- ) Glucose 100 mg/dL (70-100 mg/dL) Anion Gap 6 (3-20 ) BUN 51 mg/dL H (4-20 mg/dL) Calcium 8.0 mg/dL L (8.6-10.0 mg/dL)LAB--CHEMISTRY from 07/30/2012 6:13 AMPotassium 4.2 mEq/L (3.6-5.1 mEq/L) Magnesium 2.1 mg/dL (1.8-2.5 mg/dL) Sodium 141 mEq/L (136-144 mEq/L) Chloride 103 mEq/L (99-109 mEq/L) CO2 31 mEq/L (22-32 mEq/L) Creatinine 0.66 mg/dL (0.44-1.03 mg/dL) eGFR >60 (>60- ) Glucose 67 mg/dL L (70-100 mg/dL) Anion Gap 7 (3-20 ) BUN 53 mg/dL H (4-20 mg/dL) Calcium 8.2 mg/dL L (8.6-10.0 mg/dL)LAB--CHEMISTRY from 07/31/2012 4:08 AMPotassium 4.4 mEq/L (3.6-5.1 mEq/L) Magnesium 2.1 mg/dL (1.8-2.5 mg/dL) Sodium 138 mEq/L (136-144 mEq/L) Chloride 103 mEq/L (99-109 mEq/L) CO2 30 mEq/L (22-32 mEq/L) Creatinine 0.69 mg/dL (0.44-1.03 mg/dL) eGFR >60 (>60- ) Glucose 183 mg/dL H (70-100 mg/dL) Anion Gap 5 (3-20 ) BUN 47 mg/dL H (4-20 mg/dL) Calcium 7.8 mg/dL L (8.6-10.0 mg/dL)LAB--CHEMISTRY from 08/01/2012 4:43 AMPotassium 4.2 mEq/L (3.6-5.1 mEq/L) Magnesium 2.0 mg/dL (1.8-2.5 mg/dL) Sodium 138 mEq/L (136-144 mEq/L) Chloride 103 mEq/L (99-109 mEq/L) CO2 30 mEq/L (22-32 mEq/L) Creatinine 0.59 mg/dL (0.44-1.03 mg/dL) eGFR >60 (>60- ) Glucose 145 mg/dL H (70-100 mg/dL) Anion Gap 5 (3-20 ) BUN 43 mg/dL H (4-20 mg/dL) Calcium 7.8 mg/dL L (8.6-10.0 mg/dL)LAB--CHEMISTRY from 08/02/2012 4:49 AMPotassium 4.2 mEq/L (3.6-5.1 mEq/L) Magnesium 2.1 mg/dL (1.8-2.5 mg/dL) Sodium 138 mEq/L (136-144 mEq/L) Chloride 103 mEq/L (99-109 mEq/L) CO2 29 mEq/L (22-32 mEq/L) Creatinine 0.65 mg/dL (0.44-1.03 mg/dL) eGFR >60 (>60- ) Glucose 90 mg/dL (70-100 mg/dL) Anion Gap 6 (3-20 ) BUN 44 mg/dL H (4-20 mg/dL) Calcium 7.8 mg/dL L (8.6-10.0 mg/dL)LAB--CHEMISTRY from 08/03/2012 5:57 AMMagnesium 2.1 mg/dL (1.8-2.5 mg/dL) Potassium 3.9 mEq/L (3.6-5.1 mEq/L) Sodium 138 mEq/L (136-144 mEq/L) Chloride 104 mEq/L (99-109 mEq/L) CO2 31 mEq/L (22-32 mEq/L) Creatinine 0.51 mg/dL (0.44-1.03 mg/dL) eGFR >60 (>60- ) Glucose 52 mg/dL L (70-100 mg/dL) Anion Gap 3 (3-20 ) BUN 38 mg/dL H (4-20 mg/dL) Calcium 7.9 mg/dL L (8.6-10.0 mg/dL)LAB--CHEMISTRY from 08/04/2012 4:37 AMPotassium 4.1 mEq/L (3.6-5.1 mEq/L) Magnesium 1.9 mg/dL (1.8-2.5 mg/dL) Sodium 136 mEq/L (136-144 mEq/L) Chloride 101 mEq/L (99-109 mEq/L) CO2 30 mEq/L (22-32 mEq/L) Creatinine 0.63 mg/dL (0.44-1.03 mg/dL) eGFR >60 (>60- ) Glucose 169 mg/dL H (70-100 mg/dL) Anion Gap 5 (3-20 ) BUN 39 mg/dL H (4-20 mg/dL) Calcium 7.6 mg/dL L (8.6-10.0 mg/dL)LAB--CHEMISTRY from 08/05/2012 5:01 AMMagnesium 1.9 mg/dL (1.8-2.5 mg/dL) Potassium 3.9 mEq/L (3.6-5.1 mEq/L) Sodium 138 mEq/L (136-144 mEq/L) Chloride 103 mEq/L (99-109 mEq/L) CO2 31 mEq/L (22-32 mEq/L) Creatinine 0.58 mg/dL (0.44-1.03 mg/dL) eGFR >60 (>60- ) Glucose 174 mg/dL H (70-100 mg/dL) Anion Gap 4 (3-20 ) BUN 36 mg/dL H (4-20 mg/dL) Calcium 7.7 mg/dL L (8.6-10.0 mg/dL)LAB--CHEMISTRY from 08/06/2012 4:56 AMMagnesium 1.9 mg/dL (1.8-2.5 mg/dL) Potassium 3.8 mEq/L (3.6-5.1 mEq/L) Sodium 139 mEq/L (136-144 mEq/L) Chloride 102 mEq/L (99-109 mEq/L) CO2 30 mEq/L (22-32 mEq/L) Creatinine 0.54 mg/dL (0.44-1.03 mg/dL) eGFR >60 (>60- ) Glucose 104 mg/dL H (70-100 mg/dL) Anion Gap 7 (3-20 ) BUN 34 mg/dL H (4-20 mg/dL) Calcium 8.0 mg/dL L (8.6-10.0 mg/dL)LAB--CHEMISTRY from 08/07/2012 5:47 AMPotassium 3.6 mEq/L (3.6-5.1 mEq/L) Magnesium 1.9 mg/dL (1.8-2.5 mg/dL) Sodium 136 mEq/L (136-144 mEq/L) Chloride 98 mEq/L L (99-109 mEq/L) CO2 30 mEq/L (22-32 mEq/L) Creatinine 0.58 mg/dL (0.44-1.03 mg/dL) eGFR >60 (>60- ) Glucose 149 mg/dL H (70-100 mg/dL) Anion Gap 8 (3-20 ) BUN 37 mg/dL H (4-20 mg/dL) Calcium 7.8 mg/dL L (8.6-10.0 mg/dL)LAB--CHEMISTRY from 08/08/2012 4:18 AMMagnesium 1.8 mg/dL (1.8-2.5 mg/dL) Potassium 3.5 mEq/L L (3.6-5.1 mEq/L) Sodium 138 mEq/L (136-144 mEq/L) Chloride 100 mEq/L (99-109 mEq/L) CO2 32 mEq/L (22-32 mEq/L) Creatinine 0.60 mg/dL (0.44-1.03 mg/dL) eGFR >60 (>60- ) Glucose 145 mg/dL H (70-100 mg/dL) Anion Gap 6 (3-20 ) BUN 33 mg/dL H (4-20 mg/dL) Calcium 7.8 mg/dL L (8.6-10.0 mg/dL)LAB--CHEMISTRY from 08/09/2012 4:17 AMPotassium 3.9 mEq/L (3.6-5.1 mEq/L) Magnesium 1.7 mg/dL L (1.8-2.5 mg/dL) Sodium 137 mEq/L (136-144 mEq/L) Chloride 100 mEq/L (99-109 mEq/L) CO2 32 mEq/L (22-32 mEq/L) Creatinine 0.58 mg/dL (0.44-1.03 mg/dL) eGFR >60 (>60- ) Glucose 83 mg/dL (70-100 mg/dL) Anion Gap 5 (3-20 ) BUN 31 mg/dL H (4-20 mg/dL) Calcium 7.8 mg/dL L (8.6-10.0 mg/dL)LAB--CHEMISTRY from 08/10/2012 6:10 AMPotassium 4.3 mEq/L (3.6-5.1 mEq/L) Magnesium 2.0 mg/dL (1.8-2.5 mg/dL) Sodium 139 mEq/L (136-144 mEq/L) Chloride 102 mEq/L (99-109 mEq/L) CO2 32 mEq/L (22-32 mEq/L) Creatinine 0.61 mg/dL (0.44-1.03 mg/dL) eGFR >60 (>60- ) Glucose 77 mg/dL (70-100 mg/dL) Anion Gap 5 (3-20 ) BUN 30 mg/dL H (4-20 mg/dL) Calcium 7.9 mg/dL L (8.6-10.0 mg/dL)LAB--CHEMISTRY from 08/10/2012 11:50 PMTroponin <0.06 ng/mL (-<0.06 ng/mL) TSH (with reflex Free T4) 2.38 uIU/mL (0.35-5.50 uIU/mL)LAB--CHEMISTRY from 2012 5:39 AMPotassium 4.0 mEq/L (3.6-5.1 mEq/L) Magnesium 2.1 mg/dL (1.8-2.5 mg/dL) Sodium 133 mEq/L L (136-144 mEq/L) Chloride 98 mEq/L L (99-109 mEq/L) CO2 30 mEq/L (22-32 mEq/L) Creatinine 0.66 mg/dL (0.44-1.03 mg/dL) eGFR >60 (>60- ) Glucose 118 mg/dL H (70-100 mg/dL) Anion Gap 5 (3-20 ) B-Type Natriuretic Pep. 458 pg/mL H (0-99 pg/mL) BUN 31 mg/dL H (4-20 mg/dL) Calcium 7.5 mg/dL L (8.6-10.0 mg/dL)LAB--CHEMISTRY from 08/11/2012 7:29 AMTroponin <0.06 ng/mL (-<0.06 ng/mL)LAB--CHEMISTRY from 08/11/2012 3:00 PMPotassium 4.2 mEq/L (3.6-5.1 mEq/L) Sodium 138 mEq/L (136-144 mEq/L) Phosphorus 3.8 mg/dL (2.4-4.7 mg/dL) Troponin <0.06 ng/mL (-<0.06 ng/mL) Chloride 102 mEq/L (99-109 mEq/L) CO2 29 mEq/L (22-32 mEq/L) Creatinine 0.71 mg/dL (0.44-1.03 mg/dL) eGFR >60 (>60- ) Glucose 143 mg/dL H (70-100 mg/dL) Anion Gap 7 (3-20 ) Albumin 2.2 g/dL L (3.5-4.8 g/dL) BUN 32 mg/dL H (4-20 mg/dL) Calcium 7.5 mg/dL L (8.6-10.0 mg/dL)LAB--CHEMISTRY from 08/12/2012 5:44 AMPotassium 4.0 mEq/L (3.6-5.1 mEq/L) Magnesium 2.1 mg/dL (1.8-2.5 mg/dL) Sodium 138 mEq/L (136-144 mEq/L) Protein 5.1 g/dL L (6.1-7.9 g/dL) Chloride 103 mEq/L (99-109 mEq/L) CO2 29 mEq/L (22-32 mEq/L) Creatinine 0.68 mg/dL (0.44-1.03 mg/dL) eGFR >60 (>60- ) Glucose 73 mg/dL (70-100 mg/dL) Anion Gap 6 (3-20 ) Albumin 2.3 g/dL L (3.5-4.8 g/dL) Alkaline Phosphatase 72 U/L (26-104 U/L) ALT (SGPT) 28 U/L (14-54 U/L) AST (SGOT) 18 U/L (15-41 U/L) Bilirubin Direct 0.2 mg/dL (0.0-0.2 mg/dL) Bilirubin Indirect 0.6 mg/dL (0.0-1.0 mg/dL) Bilirubin Total 0.8 mg/dL (0.2-1.2 mg/dL) BUN 33 mg/dL H (4-20 mg/dL) Calcium 7.7 mg/dL L (8.6-10.0 mg/dL)LAB--CHEMISTRY from 08/13/2012 4:55 AMPotassium 3.4 mEq/L L (3.6-5.1 mEq/L) Magnesium 1.9 mg/dL (1.8-2.5 mg/dL) Sodium 139 mEq/L (136-144 mEq/L) Phosphorus 4.4 mg/dL (2.4-4.7 mg/dL) Chloride 100 mEq/L (99-109 mEq/L) CO2 31 mEq/L (22-32 mEq/L) Creatinine 0.70 mg/dL (0.44-1.03 mg/dL) eGFR >60 (>60- ) Glucose 169 mg/dL H (70-100 mg/dL) Anion Gap 8 (3-20 ) Albumin 2.2 g/dL L (3.5-4.8 g/dL) BUN 31 mg/dL H (4-20 mg/dL) Calcium 7.7 mg/dL L (8.6-10.0 mg/dL)LAB--CHEMISTRY from 08/14/2012 5:30 AMPotassium 2.6 mEq/L L (3.6-5.1 mEq/L) Magnesium 1.9 mg/dL (1.8-2.5 mg/dL) Sodium 138 mEq/L (136-144 mEq/L) Phosphorus 4.0 mg/dL (2.4-4.7 mg/dL) Protein 5.9 g/dL L (6.1-7.9 g/dL) Chloride 93 mEq/L L (99-109 mEq/L) CO2 36 mEq/L H (22-32 mEq/L) Creatinine 0.68 mg/dL (0.44-1.03 mg/dL) eGFR >60 (>60- ) Glucose 33 mg/dL L (70-100 mg/dL) Anion Gap 9 (3-20 ) Albumin 2.5 g/dL L (3.5-4.8 g/dL) Alkaline Phosphatase 77 U/L (26-104 U/L) ALT (SGPT) 30 U/L (14-54 U/L) AST (SGOT) 21 U/L (15-41 U/L) Bilirubin Direct 0.2 mg/dL (0.0-0.2 mg/dL) Bilirubin Indirect 1.0 mg/dL (0.0-1.0 mg/dL) Bilirubin Total 1.2 mg/dL (0.2-1.2 mg/dL) BUN 26 mg/dL H (4-20 mg/dL) Calcium 8.1 mg/dL L (8.6-10.0 mg/dL)LAB--CHEMISTRY from 08/14/2012 4:48 PMMagnesium 1.8 mg/dL (1.8-2.5 mg/dL) Potassium 3.7 mEq/L (3.6-5.1 mEq/L) Sodium 133 mEq/L L (136-144 mEq/L) Chloride 88 mEq/L L (99-109 mEq/L) CO2 34 mEq/L H (22-32 mEq/L) Creatinine 0.87 mg/dL (0.44-1.03 mg/dL) eGFR >60 (>60- ) Glucose 219 mg/dL H (70-100 mg/dL) Anion Gap 11 (3-20 ) BUN 25 mg/dL H (4-20 mg/dL) Calcium 7.5 mg/dL L (8.6-10.0 mg/dL)LAB--CHEMISTRY from 08/15/2012 4:27 AMPotassium 2.9 mEq/L L (3.6-5.1 mEq/L) Magnesium 1.7 mg/dL L (1.8-2.5 mg/dL) Sodium 134 mEq/L L (136-144 mEq/L) Chloride 88 mEq/L L (99-109 mEq/L) CO2 37 mEq/L H (22-32 mEq/L) Creatinine 0.71 mg/dL (0.44-1.03 mg/dL) eGFR >60 (>60- ) Glucose 105 mg/dL H (70-100 mg/dL) Anion Gap 9 (3-20 ) BUN 22 mg/dL H (4-20 mg/dL) Calcium 7.5 mg/dL L (8.6-10.0 mg/dL)LAB--CHEMISTRY from 08/15/2012 4:23 PMPotassium 2.3 mEq/L L (3.6-5.1 mEq/L) Sodium 135 mEq/L L (136-144 mEq/L) Chloride 83 mEq/L L (99-109 mEq/L) CO2 41 mEq/L H (22-32 mEq/L) Creatinine 0.80 mg/dL (0.44-1.03 mg/dL) eGFR >60 (>60- ) Glucose 176 mg/dL H (70-100 mg/dL) Anion Gap 11 (3-20 ) BUN 22 mg/dL H (4-20 mg/dL) Calcium 7.7 mg/dL L (8.6-10.0 mg/dL)LAB--CHEMISTRY from 08/16/2012 5:24 AMPotassium 2.9 mEq/L L (3.6-5.1 mEq/L) Magnesium 1.7 mg/dL L (1.8-2.5 mg/dL) Sodium 135 mEq/L L (136-144 mEq/L) Phosphorus 4.1 mg/dL (2.4-4.7 mg/dL) Protein 4.8 g/dL L (6.1-7.9 g/dL) Chloride 87 mEq/L L (99-109 mEq/L) CO2 41 mEq/L H (22-32 mEq/L) Creatinine 0.81 mg/dL (0.44-1.03 mg/dL) eGFR >60 (>60- ) Globulin 2.6 g/dL (1.9-4.3 g/dL) Glucose 123 mg/dL H (70-100 mg/dL) Anion Gap 7 (3-20 ) Albumin 2.2 g/dL L (3.5-4.8 g/dL) Alkaline Phosphatase 63 U/L (26-104 U/L) ALT (SGPT) 21 U/L (14-54 U/L) AST (SGOT) 18 U/L (15-41 U/L) Bilirubin Total 0.9 mg/dL (0.2-1.2 mg/dL) BUN 22 mg/dL H (4-20 mg/dL) Calcium 7.5 mg/dL L (8.6-10.0 mg/dL)LAB--CHEMISTRY from 08/16/2012 4:12 PMPotassium 3.1 mEq/L L (3.6-5.1 mEq/L) Sodium 136 mEq/L (136-144 mEq/L) Phosphorus 3.4 mg/dL (2.4-4.7 mg/dL) Chloride 85 mEq/L L (99-109 mEq/L) CO2 41 mEq/L H (22-32 mEq/L) Creatinine 0.81 mg/dL (0.44-1.03 mg/dL) eGFR >60 (>60- ) Glucose 150 mg/dL H (70-100 mg/dL) Anion Gap 10 (3-20 ) Albumin 2.4 g/dL L (3.5-4.8 g/dL) BUN 23 mg/dL H (4-20 mg/dL) Calcium 8.0 mg/dL L (8.6-10.0 mg/dL)LAB--CHEMISTRY from 08/17/2012 4:02 AMPotassium 3.6 mEq/L (3.6-5.1 mEq/L) Magnesium 2.0 mg/dL (1.8-2.5 mg/dL) Sodium 134 mEq/L L (136-144 mEq/L) Phosphorus 3.2 mg/dL (2.4-4.7 mg/dL) Protein 5.3 g/dL L (6.1-7.9 g/dL) Chloride 87 mEq/L L (99-109 mEq/L) CO2 40 mEq/L H (22-32 mEq/L) Creatinine 0.72 mg/dL (0.44-1.03 mg/dL) eGFR >60 (>60- ) Globulin 3.0 g/dL (1.9-4.3 g/dL) Glucose 82 mg/dL (70-100 mg/dL) Anion Gap 7 (3-20 ) Albumin 2.3 g/dL L (3.5-4.8 g/dL) Alkaline Phosphatase 71 U/L (26-104 U/L) ALT (SGPT) 22 U/L (14-54 U/L) AST (SGOT) 21 U/L (15-41 U/L) Bilirubin Total 1.0 mg/dL (0.2-1.2 mg/dL) BUN 23 mg/dL H (4-20 mg/dL) Calcium 8.0 mg/dL L (8.6-10.0 mg/dL)LAB--CHEMISTRY from 08/18/2012 6:10 AMPotassium 3.4 mEq/L L (3.6-5.1 mEq/L) Magnesium 1.8 mg/dL (1.8-2.5 mg/dL) Sodium 132 mEq/L L (136-144 mEq/L) Phosphorus 3.7 mg/dL (2.4-4.7 mg/dL) Protein 5.3 g/dL L (6.1-7.9 g/dL) Uric Acid 4.2 mg/dL (2.6-8.0 mg/dL) Chloride 91 mEq/L L (99-109 mEq/L) CO2 34 mEq/L H (22-32 mEq/L) Creatinine 0.75 mg/dL (0.44-1.03 mg/dL) eGFR >60 (>60- ) Globulin 2.9 g/dL (1.9-4.3 g/dL) Glucose 126 mg/dL H (70-100 mg/dL) Anion Gap 7 (3-20 ) Albumin 2.4 g/dL L (3.5-4.8 g/dL) Alkaline Phosphatase 69 U/L (26-104 U/L) ALT (SGPT) 25 U/L (14-54 U/L) AST (SGOT) 21 U/L (15-41 U/L) Bilirubin Total 1.2 mg/dL (0.2-1.2 mg/dL) BUN 25 mg/dL H (4-20 mg/dL) Calcium 8.2 mg/dL L (8.6-10.0 mg/dL)LAB--CHEMISTRY from 08/19/2012 5:46 AMPotassium 4.7 mEq/L (3.6-5.1 mEq/L) Magnesium 1.8 mg/dL (1.8-2.5 mg/dL) Sodium 136 mEq/L (136-144 mEq/L) Phosphorus 4.0 mg/dL (2.4-4.7 mg/dL) Protein 5.5 g/dL L (6.1-7.9 g/dL) Chloride 100 mEq/L (99-109 mEq/L) CO2 31 mEq/L (22-32 mEq/L) Creatinine 0.91 mg/dL (0.44-1.03 mg/dL) eGFR 60 (>60- ) Globulin 3.0 g/dL (1.9-4.3 g/dL) Glucose 148 mg/dL H (70-100 mg/dL) Anion Gap 5 (3-20 ) Albumin 2.5 g/dL L (3.5-4.8 g/dL) Alkaline Phosphatase 80 U/L (26-104 U/L) ALT (SGPT) 27 U/L (14-54 U/L) AST (SGOT) 21 U/L (15-41 U/L) Bilirubin Total 0.9 mg/dL (0.2-1.2 mg/dL) BUN 36 mg/dL H (4-20 mg/dL) Calcium 8.7 mg/dL (8.6-10.0 mg/dL)LAB--CHEMISTRY from 08/20/2012 5:12 AMGlucose 127 mg/dL H (70-100 mg/dL) Potassium 4.4 mEq/L (3.6-5.1 mEq/L) Magnesium 2.0 mg/dL (1.8-2.5 mg/dL) Sodium 138 mEq/L (136-144 mEq/L) Phosphorus 4.0 mg/dL (2.4-4.7 mg/dL) Protein 5.7 g/dL L (6.1-7.9 g/dL) Chloride 103 mEq/L (99-109 mEq/L) CO2 28 mEq/L (22-32 mEq/L) Creatinine 0.85 mg/dL (0.44-1.03 mg/dL) eGFR >60 (>60- ) Globulin 3.0 g/dL (1.9-4.3 g/dL) Anion Gap 7 (3-20 ) Albumin 2.7 g/dL L (3.5-4.8 g/dL) Alkaline Phosphatase 75 U/L (26-104 U/L) ALT (SGPT) 31 U/L (14-54 U/L) AST (SGOT) 24 U/L (15-41 U/L) Bilirubin Total 0.9 mg/dL (0.2-1.2 mg/dL) BUN 35 mg/dL H (4-20 mg/dL) Calcium 9.0 mg/dL (8.6-10.0 mg/dL)LAB--CHEMISTRY from 08/21/2012 4:56 AMGlucose 137 mg/dL H (70-100 mg/dL) Potassium 5.5 mEq/L H (3.6-5.1 mEq/L) Magnesium 1.7 mg/dL L (1.8-2.5 mg/dL) Sodium 137 mEq/L (136-144 mEq/L) Phosphorus 3.5 mg/dL (2.4-4.7 mg/dL) Protein 5.7 g/dL L (6.1-7.9 g/dL) Chloride 106 mEq/L (99-109 mEq/L) CO2 26 mEq/L (22-32 mEq/L) Creatinine 0.78 mg/dL (0.44-1.03 mg/dL) eGFR >60 (>60- ) Globulin 3.0 g/dL (1.9-4.3 g/dL) Anion Gap 5 (3-20 ) Albumin 2.7 g/dL L (3.5-4.8 g/dL) Alkaline Phosphatase 84 U/L (26-104 U/L) ALT (SGPT) 33 U/L (14-54 U/L) AST (SGOT) 27 U/L (15-41 U/L) Bilirubin Total 0.7 mg/dL (0.2-1.2 mg/dL) BUN 33 mg/dL H (4-20 mg/dL) Calcium 8.4 mg/dL L (8.6-10.0 mg/dL)LAB--CHEMISTRY from 08/22/2012 5:03 AMGlucose 120 mg/dL H (70-100 mg/dL) Potassium 3.6 mEq/L (3.6-5.1 mEq/L) Magnesium 1.8 mg/dL (1.8-2.5 mg/dL) Sodium 135 mEq/L L (136-144 mEq/L) Phosphorus 4.4 mg/dL (2.4-4.7 mg/dL) Protein 5.5 g/dL L (6.1-7.9 g/dL) Chloride 99 mEq/L (99-109 mEq/L) CO2 27 mEq/L (22-32 mEq/L) Creatinine 0.67 mg/dL (0.44-1.03 mg/dL) eGFR >60 (>60- ) Globulin 2.6 g/dL (1.9-4.3 g/dL) Anion Gap 9 (3-20 ) Albumin 2.9 g/dL L (3.5-4.8 g/dL) Alkaline Phosphatase 71 U/L (26-104 U/L) ALT (SGPT) 26 U/L (14-54 U/L) AST (SGOT) 20 U/L (15-41 U/L) Bilirubin Total 0.9 mg/dL (0.2-1.2 mg/dL) BUN 32 mg/dL H (4-20 mg/dL) Calcium 8.5 mg/dL L (8.6-10.0 mg/dL)LAB--COAG STUDIES from 07/10/2012 3:51 AMD- Dimer >35.5 mg/L FEU H (0.0-0.5 mg/L FEU) Schistocyte Coag None (None ) PTT 27.1 sec (25.0-35.0 sec) INR 1.4 H (0.9-1.2 ) Fibrin Degredation Prod >40 ug/mL A (-<10 ug/mL) Fibrinogen 169 mg/dL L (187-520 mg/dL)LAB--COAG STUDIES from 07/10/2012 7:05 PMD- Dimer >35.5 mg/L FEU H (0.0-0.5 mg/L FEU) Schistocyte Coag None (None ) PTT 30.8 sec (25.0-35.0 sec) INR 1.4 H (0.9-1.2 ) Fibrin Degredation Prod >40 ug/mL A (-<10 ug/mL) Fibrinogen 245 mg/dL (187-520 mg/dL)LAB--COAG STUDIES from 07/11/2012 4:59 AMD- Dimer >35.5 mg/L FEU H (0.0-0.5 mg/L FEU) Schistocyte Coag None (None ) PTT 29.9 sec (25.0-35.0 sec) INR 1.5 H (0.9-1.2 ) Fibrin Degredation Prod >40 ug/mL A (-<10 ug/mL) Fibrinogen 222 mg/dL (187-520 mg/dL)LAB--COAG STUDIES from 07/11/2012 5:06 PMD- Dimer >35.5 mg/L FEU H (0.0-0.5 mg/L FEU) Schistocyte Coag None (None ) PTT 26.7 sec (25.0-35.0 sec) INR 1.4 H (0.9-1.2 ) Fibrin Degredation Prod >40 ug/mL A (-<10 ug/mL) Fibrinogen 221 mg/dL (187-520 mg/dL)LAB--COAG STUDIES from 07/12/2012 5:18 AMD- Dimer >35.5 mg/L FEU H (0.0-0.5 mg/L FEU) Schistocyte Coag None (None ) PTT 29.0 sec (25.0-35.0 sec) INR 1.5 H (0.9-1.2 ) Fibrin Degredation Prod >40 ug/mL A (-<10 ug/mL) Fibrinogen 228 mg/dL (187-520 mg/dL)LAB--COAG STUDIES from 07/12/2012 7:24 PMD- Dimer >35.5 mg/L FEU H (0.0-0.5 mg/L FEU) Schistocyte Coag None (None ) PTT 27.2 sec (25.0-35.0 sec) INR 1.3 H (0.9-1.2 ) Fibrin Degredation Prod >40 ug/mL A (-<10 ug/mL) Fibrinogen 260 mg/dL (187-520 mg/dL)LAB--COAG STUDIES from 07/13/2012 6:33 AMD- Dimer 22.1 mg/L FEU H (0.0-0.5 mg/L FEU) Schistocyte Coag None (None ) PTT 28.5 sec (25.0-35.0 sec) INR 1.3 H (0.9-1.2 ) Fibrin Degredation Prod >40 ug/mL A (-<10 ug/mL) Fibrinogen 225 mg/dL (187-520 mg/dL)LAB--COAG STUDIES from 07/13/2012 4:18 PMD- Dimer 17.7 mg/L FEU H (0.0-0.5 mg/L FEU) Schistocyte Coag None (None ) PTT 24.0 sec L (25.0-35.0 sec) INR 1.3 H (0.9-1.2 ) Fibrin Degredation Prod >40 ug/mL A (-<10 ug/mL) Fibrinogen 193 mg/dL (187-520 mg/dL)LAB--COAG STUDIES from 07/14/2012 6:57 AMD- Dimer 18.2 mg/L FEU H (0.0-0.5 mg/L FEU) Schistocyte Coag None (None ) PTT 25.4 sec (25.0-35.0 sec) INR 1.3 H (0.9-1.2 ) Fibrin Degredation Prod >10<40 ug/mL A (-<10 ug/mL) Fibrinogen 133 mg/dL L (187-520 mg/dL)LAB--COAG STUDIES from 07/14/2012 4:16 PMD- Dimer 10.3 mg/L FEU H (0.0-0.5 mg/L FEU) Schistocyte Coag None (None ) PTT 24.7 sec L (25.0-35.0 sec) INR 1.2 (0.9-1.2 ) Fibrin Degredation Prod >10<40 ug/mL A (-<10 ug/mL) Fibrinogen 218 mg/dL (187-520 mg/dL)LAB--COAG STUDIES from 07/15/2012 5:19 AMD- Dimer 8.2 mg/L FEU H (0.0-0.5 mg/L FEU) Schistocyte Coag None (None ) PTT 24.5 sec L (25.0-35.0 sec) INR 1.3 H (0.9-1.2 ) Fibrin Degredation Prod >10<40 ug/mL A (-<10 ug/mL) Fibrinogen 164 mg/dL L (187-520 mg/dL)LAB--COAG STUDIES from 07/15/2012 3:57 PMD- Dimer 7.5 mg/L FEU H (0.0-0.5 mg/L FEU) Schistocyte Coag None (None ) PTT 24.0 sec L (25.0-35.0 sec) INR 1.3 H (0.9-1.2 ) Fibrin Degredation Prod >10<40 ug/mL A (-<10 ug/mL) Fibrinogen 148 mg/dL L (187-520 mg/dL)LAB--COAG STUDIES from 07/16/2012 4:40 AMD- Dimer 6.8 mg/L FEU H (0.0-0.5 mg/L FEU) Schistocyte Coag None (None ) PTT 22.9 sec L (25.0-35.0 sec) INR 1.3 H (0.9-1.2 ) Fibrin Degredation Prod >10<40 ug/mL A (-<10 ug/mL) Fibrinogen 195 mg/dL (187-520 mg/dL)LAB--COAG STUDIES from 07/16/2012 3:58 PMD- Dimer 7.0 mg/L FEU H (0.0-0.5 mg/L FEU) Schistocyte Coag None (None ) PTT 24.0 sec L (25.0-35.0 sec) INR 1.3 H (0.9-1.2 ) Fibrin Degredation Prod >10<40 ug/mL A (-<10 ug/mL) Fibrinogen 183 mg/dL L (187-520 mg/dL)LAB--COAG STUDIES from 07/17/2012 5:11 AMD- Dimer 7.4 mg/L FEU H (0.0-0.5 mg/L FEU) Schistocyte Coag None (None ) PTT 23.8 sec L (25.0-35.0 sec) INR 1.4 H (0.9-1.2 ) Fibrinogen 151 mg/dL L (187-520 mg/dL) Fibrin Degredation Prod <10 ug/mL (-<10 ug/mL)LAB--COAG STUDIES from 07/17/2012 4 :37 PMD-Dimer 8.8 mg/L FEU H (0.0-0.5 mg/L FEU) Schistocyte Coag Occasional A (None ) PTT 22.5 sec L (25.0-35.0 sec) INR 1.4 H (0.9-1.2 ) Fibrinogen 143 mg/dL L (187-520 mg/dL) Fibrin Degredation Prod >10<40 ug/mL A (-<10 ug/mL)LAB--COAG STUDIES from 2012 4:34 AMD-Dimer 7.3 mg/L FEU H (0.0-0.5 mg/L FEU) Schistocyte Coag Occasional A (None ) PTT 25.6 sec (25.0-35.0 sec) INR 1.3 H (0.9-1.2 ) Fibrinogen 219 mg/dL (187-520 mg/dL) Fibrin Degredation Prod >10<40 ug/mL A (-<10 ug/mL)LAB--COAG STUDIES from 2012 5:17 PMD-Dimer 8.8 mg/L FEU H (0.0-0.5 mg/L FEU) Schistocyte Coag Occasional A (None ) PTT 24.2 sec L (25.0-35.0 sec) INR 1.3 H (0.9-1.2 ) Fibrinogen 201 mg/dL (187-520 mg/dL) Fibrin Degredation Prod >10<40 ug/mL A (-<10 ug/mL)LAB--COAG STUDIES from 2012 6:55 AMD-Dimer 6.6 mg/L FEU H (0.0-0.5 mg/L FEU) Schistocyte Coag Occasional A (None ) PTT 24.5 sec L (25.0-35.0 sec) INR 1.3 H (0.9-1.2 ) Fibrinogen 195 mg/dL (187-520 mg/dL) Fibrin Degredation Prod <10 ug/mL (-<10 ug/mL)LAB--COAG STUDIES from 07/19/2012 4 :10 PMD-Dimer 7.3 mg/L FEU H (0.0-0.5 mg/L FEU) Schistocyte Coag Occasional A (None ) PTT 24.3 sec L (25.0-35.0 sec) INR 1.3 H (0.9-1.2 ) Fibrinogen 166 mg/dL L (187-520 mg/dL) Fibrin Degredation Prod >10<40 ug/mL A (-<10 ug/mL)LAB--COAG STUDIES from 2012 6:03 AMD-Dimer 5.2 mg/L FEU H (0.0-0.5 mg/L FEU) Schistocyte Coag None (None ) PTT 24.0 sec L (25.0-35.0 sec) INR 1.3 H (0.9-1.2 ) Fibrinogen 159 mg/dL L (187-520 mg/dL) Fibrin Degredation Prod >10<40 ug/mL A (-<10 ug/mL)LAB--COAG STUDIES from 2012 4:00 PMD-Dimer 5.7 mg/L FEU H (0.0-0.5 mg/L FEU) Schistocyte Coag Occasional A (None ) PTT 24.0 sec L (25.0-35.0 sec) INR 1.3 H (0.9-1.2 ) Fibrinogen 142 mg/dL L (187-520 mg/dL) Fibrin Degredation Prod >10<40 ug/mL A (-<10 ug/mL)LAB--COAG STUDIES from 2012 6:10 AMD-Dimer 4.8 mg/L FEU H (0.0-0.5 mg/L FEU) Schistocyte Coag Occasional A (None ) PTT 22.1 sec L (25.0-35.0 sec) INR 1.2 (0.9-1.2 ) Fibrinogen 222 mg/dL (187-520 mg/dL) Fibrin Degredation Prod >10<40 ug/mL A (-<10 ug/mL)LAB--COAG STUDIES from 2012 4:13 PMD-Dimer 6.9 mg/L FEU H (0.0-0.5 mg/L FEU) Schistocyte Coag Occasional A (None ) PTT 21.7 sec L (25.0-35.0 sec) INR 1.2 (0.9-1.2 ) Fibrinogen 201 mg/dL (187-520 mg/dL) Fibrin Degredation Prod >10<40 ug/mL A (-<10 ug/mL)LAB--COAG STUDIES from 2012 4:50 AMD-Dimer 4.9 mg/L FEU H (0.0-0.5 mg/L FEU) Schistocyte Coag Occasional A (None ) PTT 23.2 sec L (25.0-35.0 sec) INR 1.2 (0.9-1.2 ) Fibrinogen 172 mg/dL L (187-520 mg/dL) Fibrin Degredation Prod >10<40 ug/mL A (-<10 ug/mL)LAB--COAG STUDIES from 2012 6:46 AMD-Dimer 4.3 mg/L FEU H (0.0-0.5 mg/L FEU) Schistocyte Coag Occasional A (None ) PTT 23.9 sec L (25.0-35.0 sec) INR 1.1 (0.9-1.2 ) Fibrinogen 154 mg/dL L (187-520 mg/dL) Fibrin Degredation Prod >10<40 ug/mL A (-<10 ug/mL)LAB--COAG STUDIES from 2012 4:34 AMD-Dimer 3.5 mg/L FEU H (0.0-0.5 mg/L FEU) Schistocyte Coag Occasional A (None ) PTT 23.6 sec L (25.0-35.0 sec) INR 1.1 (0.9-1.2 ) Fibrinogen 198 mg/dL (187-520 mg/dL) Fibrin Degredation Prod >10<40 ug/mL A (-<10 ug/mL)LAB--COAG STUDIES from 2012 4:20 AMD-Dimer 3.9 mg/L FEU H (0.0-0.5 mg/L FEU) Schistocyte Coag None (None ) PTT 24.0 sec L (25.0-35.0 sec) INR 1.1 (0.9-1.2 ) Fibrinogen 172 mg/dL L (187-520 mg/dL) Fibrin Degredation Prod >10<40 ug/mL A (-<10 ug/mL)LAB--COAG STUDIES from 2012 3:58 AMD-Dimer 2.7 mg/L FEU H (0.0-0.5 mg/L FEU) Schistocyte Coag None (None ) PTT 23.8 sec L (25.0-35.0 sec) INR 1.1 (0.9-1.2 ) Fibrinogen 162 mg/dL L (187-520 mg/dL) Fibrin Degredation Prod >10<40 ug/mL A (-<10 ug/mL)LAB--COAG STUDIES from 2012 4:51 AMFibrinogen 151 mg/dL L (187-520 mg/dL)LAB--COAG STUDIES from 2012 5:25 AMFibrinogen 157 mg/dL L (187-520 mg/dL)LAB--COAG STUDIES from 2012 4:26 AMFibrinogen 180 mg/dL L (187-520 mg/dL)LAB--COAG STUDIES from 2012 6:13 AMFibrinogen 222 mg/dL (187-520 mg/dL)LAB--COAG STUDIES from 2012 4:08 AMFibrinogen 244 mg/dL (187-520 mg/dL)LAB--COAG STUDIES from 2012 4:43 AMFibrinogen 219 mg/dL (187-520 mg/dL)LAB--COAG STUDIES from 2012 4:49 AMFibrinogen 255 mg/dL (187-520 mg/dL)LAB--COAG STUDIES from 2012 5:57 AMFibrinogen 255 mg/dL (187-520 mg/dL)LAB--COAG STUDIES from 2012 4:37 AMFibrinogen 271 mg/dL (187-520 mg/dL)LAB--COAG STUDIES from 08/05/2012 5:01 AMFibrinogen 255 mg/dL (187-520 mg/dL)LAB--COAG STUDIES from 08/06/2012 4:56 AMFibrinogen 271 mg/dL (187-520 mg/dL)LAB--COAG STUDIES from 08/07/2012 5:48 AMFibrinogen 344 mg/dL (187-520 mg/dL)LAB--COAG STUDIES from 08/08/2012 4:17 AMFibrinogen 351 mg/dL (187-520 mg/dL)LAB--COAG STUDIES from 08/09/2012 4:16 AMFibrinogen 410 mg/dL (187-520 mg/dL)LAB--COAG STUDIES from 08/14/2012 5:30 AMFibrinogen 718 mg/dL H (187-520 mg/dL) INR 1.2 (0.9-1.2 ) PTT 71.6 sec H (25.0-35.0 sec) Schistocyte Coag None (None ) D-Dimer 1.4 mg/L FEU H (0.0-0.5 mg/L FEU) Fibrin Degredation Prod <10 ug/mL (-<10 ug/mL)LAB--FLUID TESTING from 08/15/2012 12:33 PMAppearance, Bronch Wash Sl Bloody Ciliated Cells, Bronch Wash 8 % Color, Bronch Wash [place] Lymphocytes, Bronch Wash 10 % Macrophages, Bronch Wash 17 % Neutrophils, Bronch Wash 65 % RBC, Bronch Wash 34574 /mm3 Nucleated cells, Bronch Wash 120 /[id number]--STIVR TESTING from 08/22/2012 2:35 PMAlbumin, Fluid 2.0 g/dL Glucose, Fluid 181 mg/dL LDH, Fluid 148 U/L Lab Body Fluid Type Pleural Protein, Fluid 3.1 g/dL Body Fluid Appearance Clear Body Fluid Color Yellow Lymphocytes, Fluid 30 % Mesothelial Cell, Fluid 2 % Mononuclear Phagocyte, Fluid 2 % Nucleated Cell Count, Fluid 330 /mm3 Neutrophil, Fluid 66 % RBC, Fluid 715 /mm3 Fluid Type Pleural LAB--HEMATOLOGY from 07/09/2012 4:02 PMAbsolute Eosinophils 0.00 THOUS (0.00-0.50 THOUS) Absolute Basophils 0.00 THOUS (0.00-0.20 THOUS) Absolute Lymphocytes 0.92 THOUS (0.80-3.30 THOUS) Neutrophils 18 % L (51-75 %) Basophils 0 % (0-2 %) Blast 52 % Eosinophils 0 % (0-4 %) Lymphocytes 20 % (20-46 %) Monocytes 1 % L (4-11 %) Nucleated RBC Automated 1.5 /100 WBC (0 /100 WBC) Polychromasia Occasional A Promyelocyte 7 % H (-1-0 %) Differential Manual A MPV 9.6 fL (9.4-12.4 fL) Platelet Count 15 K/uL L (150-400 K/uL) RBC 2.50 M/uL L (4.00-5.20 M/uL) RDW 15.5 % H (11.5-14.5 %) WBC 4.6 K/uL L (4.8-10.8 K/uL) Bands 2 % (0-8 %) Absolute Monocytes 0.05 THOUS L (0.30-1.00 THOUS) Absolute Neutrophils 0.92 THOUS L (1.90-7.00 THOUS) HCT 22.0 % L (37.0-47.0 %) HGB 8.0 g/dl L (12.0-16.0 g/dl) MCH 32.0 pg (27.0-32.0 pg) MCHC 36.4 g/dL H (32.0-36.0 g/dL) MCV 88.0 fL (82.0-99.0 fL)LAB--HEMATOLOGY from 07/10/2012 3:51 AMAbsolute Eosinophils 0.06 THOUS (0.00-0.50 THOUS) Absolute Basophils 0.00 THOUS (0.00-0.20 THOUS) Absolute Lymphocytes 0.58 THOUS L (0.80-3.30 THOUS) Neutrophils 12 % L (51-75 %) Basophils 0 % (0-2 %) Blast 70 % Eosinophils 1 % (0-4 %) Lymphocytes 10 % L (20-46 %) Monocytes 1 % L (4-11 %) Nucleated RBC Automated 1.6 /100 WBC (0 /100 WBC) Polychromasia Occasional A Promyelocyte 6 % H (-1-0 %) Differential Manual A Platelet Count 16 K/uL L (150-400 K/uL) MPV 10.6 fL (9.4-12.4 fL) RBC 2.30 M/uL L (4.00-5.20 M/uL) RDW 15.7 % H (11.5-14.5 %) WBC 5.8 K/uL (4.8-10.8 K/uL) Absolute Monocytes 0.06 THOUS L (0.30-1.00 THOUS) Absolute Neutrophils 0.70 THOUS L (1.90-7.00 THOUS) HCT 20.4 % L (37.0-47.0 %) HGB 7.2 g/dl L (12.0-16.0 g/dl) MCH 31.3 pg (27.0-32.0 pg) MCHC 35.3 g/dL (32.0-36.0 g/dL) MCV 88.7 fL (82.0-99.0 fL)LAB--HEMATOLOGY from 07/10/2012 7:05 PMPlatelet Count 19 K/uL L (150-400 K/uL)LAB--HEMATOLOGY from 07/11/2012 4:59 AMAbsolute Basophils 0.00 THOUS (0.00-0.20 THOUS) Absolute Eosinophils 0.00 THOUS (0.00-0.50 THOUS) Absolute Lymphocytes 1.37 THOUS (0.80-3.30 THOUS) Neutrophils 9 % L (51-75 %) Basophils 0 % (0-2 %) Blast 66 % Eosinophils 0 % (0-4 %) Lymphocytes 13 % L (20-46 %) Monocytes 0 % L (4-11 %) Nucleated RBC Automated 1.5 /100 WBC (0 /100 WBC) Polychromasia Occasional A Promyelocyte 8 % H (-1-0 %) Differential Manual A MCV 85.5 fL (82.0-99.0 fL) MPV 9.6 fL (9.4-12.4 fL) Platelet Count 23 K/uL L (150-400 K/uL) RBC 2.96 M/uL L (4.00-5.20 M/uL) RDW 18.0 % H (11.5-14.5 %) WBC 10.5 K/uL (4.8-10.8 K/uL) Bands 4 % (0-8 %) Absolute Monocytes 0.00 THOUS L (0.30-1.00 THOUS) Absolute Neutrophils 1.37 THOUS L (1.90-7.00 THOUS) HCT 25.3 % L (37.0-47.0 %) HGB 8.8 g/dl L (12.0-16.0 g/dl) MCH 29.7 pg (27.0-32.0 pg) MCHC 34.8 g/dL (32.0-36.0 g/dL)LAB--HEMATOLOGY from 07/11/2012 5:06 PMPlatelet Count 34 K/uL L (150-400 K/uL)LAB--HEMATOLOGY from 07/12/2012 5:18 AMAbsolute Basophils 0.00 THOUS (0.00-0.20 THOUS) Absolute Eosinophils 0.00 THOUS (0.00-0.50 THOUS) Absolute Lymphocytes 1.99 THOUS (0.80-3.30 THOUS) Neutrophils 13 % L (51-75 %) Basophils 0 % (0-2 %) Blast 44 % Eosinophils 0 % (0-4 %) Lymphocytes 24 % (20-46 %) Monocytes 4 % (4-11 %) Myelocytes 1 % Nucleated RBC Automated 1.8 /100 WBC (0 /100 WBC) Polychromasia Occasional A Promyelocyte 12 % H (-1-0 %) Differential Manual A MCV 85.0 fL (82.0-99.0 fL) Platelet Count 15 K/uL L (150-400 K/uL) RBC 3.00 M/uL L (4.00-5.20 M/uL) RDW 18.4 % H (11.5-14.5 %) WBC 8.3 K/uL (4.8-10.8 K/uL) Bands 2 % (0-8 %) Absolute Monocytes 0.33 THOUS (0.30-1.00 THOUS) Absolute Neutrophils 1.25 THOUS L (1.90-7.00 THOUS) HCT 25.5 % L (37.0-47.0 %) HGB 8.9 g/dl L (12.0-16.0 g/dl) MCH 29.7 pg (27.0-32.0 pg) MCHC 34.9 g/dL (32.0-36.0 g/dL)LAB--HEMATOLOGY from 07/12/2012 7:24 PMPlatelet Count 55 K/uL L (150-400 K/uL)LAB--HEMATOLOGY from 07/13/2012 6:33 AMAbsolute Eosinophils 0.00 THOUS (0.00-0.50 THOUS) Absolute Basophils 0.00 THOUS (0.00-0.20 THOUS) Absolute Lymphocytes 3.06 THOUS (0.80-3.30 THOUS) Neutrophils 10 % L (51-75 %) Basophils 0 % (0-2 %) Blast 52 % Eosinophils 0 % (0-4 %) Lymphocytes 19 % L (20-46 %) Monocytes 0 % L (4-11 %) Myelocytes 1 % Nucleated RBC Automated 1.5 /100 WBC (0 /100 WBC) Polychromasia Occasional A Promyelocyte 17 % H (-1-0 %) Differential Manual A MCV 86.1 fL (82.0-99.0 fL) MPV 10.4 fL (9.4-12.4 fL) Platelet Count 34 K/uL L (150-400 K/uL) RBC 3.10 M/uL L (4.00-5.20 M/uL) RDW 18.5 % H (11.5-14.5 %) WBC 16.1 K/uL H (4.8-10.8 K/uL) Bands 1 % (0-8 %) Absolute Monocytes 0.00 THOUS L (0.30-1.00 THOUS) Absolute Neutrophils 1.77 THOUS L (1.90-7.00 THOUS) HCT 26.7 % L (37.0-47.0 %) HGB 9.2 g/dl L (12.0-16.0 g/dl) MCH 29.7 pg (27.0-32.0 pg) MCHC 34.5 g/dL (32.0-36.0 g/dL)LAB--HEMATOLOGY from 07/13/2012 4:18 PMPlatelet Count 31 K/uL L (150-400 K/uL)LAB--HEMATOLOGY from 07/14/2012 6:57 AMAbsolute Eosinophils 0.00 THOUS (0.00-0.50 THOUS) Absolute Basophils 0.00 THOUS (0.00-0.20 THOUS) Absolute Lymphocytes 3.54 THOUS H (0.80-3.30 THOUS) Neutrophils 17 % L (51-75 %) Basophils 0 % (0-2 %) Blast 49 % Eosinophils 0 % (0-4 %) Lymphocytes 13 % L (20-46 %) Monocytes 4 % (4-11 %) Myelocytes 1 % Nucleated RBC Automated 2.0 /100 WBC (0 /100 WBC) Polychromasia Occasional A Promyelocyte 14 % H (-1-0 %) Differential Manual A MCV 87.3 fL (82.0-99.0 fL) Platelet Count 28 K/uL L (150-400 K/uL) RBC 3.00 M/uL L (4.00-5.20 M/uL) RDW 18.4 % H (11.5-14.5 %) WBC 27.2 K/uL H (4.8-10.8 K/uL) Bands 2 % (0-8 %) Absolute Monocytes 1.09 THOUS H (0.30-1.00 THOUS) Absolute Neutrophils 5.17 THOUS (1.90-7.00 THOUS) HCT 26.2 % L (37.0-47.0 %) HGB 8.9 g/dl L (12.0-16.0 g/dl) MCH 29.7 pg (27.0-32.0 pg) MCHC 34.0 g/dL (32.0-36.0 g/dL)LAB--HEMATOLOGY from 07/14/2012 4:16 PMPlatelet Count 76 K/uL L (150-400 K/uL)LAB--HEMATOLOGY from 07/15/2012 5:19 AMAbsolute Eosinophils 0.00 THOUS (0.00-0.50 THOUS) Absolute Basophils 0.00 THOUS (0.00-0.20 THOUS) Absolute Lymphocytes 1.88 THOUS (0.80-3.30 THOUS) Neutrophils 1 % L (51-75 %) Basophils 0 % (0-2 %) Blast 42 % Eosinophils 0 % (0-4 %) Lymphocytes 5 % L (20-46 %) Metamyelocytes 3 % H (0-1 %) Monocytes 2 % L (4-11 %) Myelocytes 13 % Nucleated RBC Automated 2.0 /100 WBC (0 /100 WBC) Promyelocyte 34 % H (-1-0 %) MCV 88.2 fL (82.0-99.0 fL) MPV 10.3 fL (9.4-12.4 fL) Platelet Count 58 K/uL L (150-400 K/uL) RBC 2.96 M/uL L (4.00-5.20 M/uL) RDW 18.4 % H (11.5-14.5 %) WBC 37.6 K/uL H (4.8-10.8 K/uL) Absolute Monocytes 0.75 THOUS (0.30-1.00 THOUS) Absolute Neutrophils 0.38 THOUS L (1.90-7.00 THOUS) HCT 26.1 % L (37.0-47.0 %) HGB 8.9 g/dl L (12.0-16.0 g/dl) MCH 30.1 pg (27.0-32.0 pg) MCHC 34.1 g/dL (32.0-36.0 g/dL)LAB--HEMATOLOGY from 07/15/2012 3:57 PMPlatelet Count 45 K/uL L (150-400 K/uL)LAB--HEMATOLOGY from 07/16/2012 4:40 AMAbsolute Eosinophils 0.00 THOUS (0.00-0.50 THOUS) Absolute Basophils 0.00 THOUS (0.00-0.20 THOUS) Absolute Lymphocytes 4.10 THOUS H (0.80-3.30 THOUS) Neutrophils 7 % L (51-75 %) Basophils 0 % (0-2 %) Blast 49 % Eosinophils 0 % (0-4 %) Lymphocytes 9 % L (20-46 %) Metamyelocytes 2 % H (0-1 %) Monocytes 6 % (4-11 %) Myelocytes 2 % Nucleated RBC Automated 1.9 /100 WBC (0 /100 WBC) Polychromasia Occasional A Promyelocyte 24 % H (-1-0 %) Differential Manual A MCV 88.9 fL (82.0-99.0 fL) Platelet Count 39 K/uL L (150-400 K/uL) RBC 2.96 M/uL L (4.00-5.20 M/uL) RDW 18.5 % H (11.5-14.5 %) WBC 45.6 K/uL H (4.8-10.8 K/uL) Bands 1 % (0-8 %) Absolute Monocytes 2.74 THOUS H (0.30-1.00 THOUS) Absolute Neutrophils 3.65 THOUS (1.90-7.00 THOUS) HCT 26.3 % L (37.0-47.0 %) HGB 8.7 g/dl L (12.0-16.0 g/dl) MCH 29.4 pg (27.0-32.0 pg) MCHC 33.1 g/dL (32.0-36.0 g/dL)LAB--HEMATOLOGY from 07/16/2012 3:58 PMPlatelet Count 50 K/uL L (150-400 K/uL)LAB--HEMATOLOGY from 07/17/2012 5:11 AMAbsolute Eosinophils 0.00 THOUS (0.00-0.50 THOUS) Absolute Basophils 0.00 THOUS (0.00-0.20 THOUS) Absolute Lymphocytes 4.11 THOUS H (0.80-3.30 THOUS) Neutrophils 5 % L (51-75 %) Basophils 0 % (0-2 %) Blast 57 % Eosinophils 0 % (0-4 %) Lymphocytes 6 % L (20-46 %) Metamyelocytes 1 % (0-1 %) Monocytes 18 % H (4-11 %) Myelocytes 2 % Nucleated RBC Automated 1.8 /100 WBC (0 /100 WBC) Promyelocyte 11 % H (-1-0 %) Differential Manual A MCV 89.3 fL (82.0-99.0 fL) Platelet Count 41 K/uL L (150-400 K/uL) RBC 3.07 M/uL L (4.00-5.20 M/uL) RDW 18.9 % H (11.5-14.5 %) WBC 68.5 K/uL H (4.8-10.8 K/uL) Bands 0 % (0-8 %) Absolute Monocytes 12.33 THOUS H (0.30-1.00 THOUS) Absolute Neutrophils 3.43 THOUS (1.90-7.00 THOUS) HCT 27.4 % L (37.0-47.0 %) HGB 9.0 g/dl L (12.0-16.0 g/dl) MCH 29.3 pg (27.0-32.0 pg) MCHC 32.8 g/dL (32.0-36.0 g/dL)LAB--HEMATOLOGY from 07/17/2012 4:37 PMPlatelet Count 45 K/uL L (150-400 K/uL)LAB--HEMATOLOGY from 07/18/2012 4:34 AMAbsolute Eosinophils 0.00 THOUS (0.00-0.50 THOUS) Absolute Basophils 0.00 THOUS (0.00-0.20 THOUS) Absolute Lymphocytes 4.11 THOUS H (0.80-3.30 THOUS) Schistocytes Occasional A Neutrophils 4 % L (51-75 %) Basophils 0 % (0-2 %) Blast 59 % Eosinophils 0 % (0-4 %) Lymphocytes 5 % L (20-46 %) Monocytes 9 % (4-11 %) Nucleated RBC Automated 1.2 /100 WBC (0 /100 WBC) Promyelocyte 22 % H (-1-0 %) Differential Manual A MCV 88.3 fL (82.0-99.0 fL) Platelet Count 38 K/uL L (150-400 K/uL) RBC 2.91 M/uL L (4.00-5.20 M/uL) RDW 18.8 % H (11.5-14.5 %) WBC 82.2 K/uL H (4.8-10.8 K/uL) Bands 1 % (0-8 %) Absolute Monocytes 7.40 THOUS H (0.30-1.00 THOUS) Absolute Neutrophils 4.11 THOUS (1.90-7.00 THOUS) HCT 25.7 % L (37.0-47.0 %) HGB 8.7 g/dl L (12.0-16.0 g/dl) MCH 29.9 pg (27.0-32.0 pg) MCHC 33.9 g/dL (32.0-36.0 g/dL)LAB--HEMATOLOGY from 07/18/2012 5:17 PMPlatelet Count 28 K/uL L (150-400 K/uL)LAB--HEMATOLOGY from 07/19/2012 6:55 AMAbsolute Eosinophils 0.97 THOUS H (0.00-0.50 THOUS) Absolute Basophils 0.00 THOUS (0.00-0.20 THOUS) Absolute Lymphocytes 12.61 THOUS H (0.80-3.30 THOUS) Schistocytes Occasional A Neutrophils 2 % L (51-75 %) Basophils 0 % (0-2 %) Blast 59 % Eosinophils 1 % (0-4 %) Lymphocytes 13 % L (20-46 %) Monocytes 3 % L (4-11 %) Nucleated RBC Automated 0.7 /100 WBC (0 /100 WBC) Polychromasia Occasional A Promyelocyte 22 % H (-1-0 %) Differential Manual A MCV 88.9 fL (82.0-99.0 fL) Platelet Count 80 K/uL L (150-400 K/uL) RBC 2.96 M/uL L (4.00-5.20 M/uL) RDW 19.3 % H (11.5-14.5 %) WBC 97.0 K/uL H (4.8-10.8 K/uL) Absolute Monocytes 2.91 THOUS H (0.30-1.00 THOUS) Absolute Neutrophils 1.94 THOUS (1.90-7.00 THOUS) HCT 26.3 % L (37.0-47.0 %) HGB 8.9 g/dl L (12.0-16.0 g/dl) MCH 30.1 pg (27.0-32.0 pg) MCHC 33.8 g/dL (32.0-36.0 g/dL)LAB--HEMATOLOGY from 07/19/2012 4:10 PMPlatelet Count 86 K/uL L (150-400 K/uL)LAB--HEMATOLOGY from 07/20/2012 6:03 AMAbsolute Eosinophils 0.00 THOUS (0.00-0.50 THOUS) Absolute Basophils 0.00 THOUS (0.00-0.20 THOUS) Absolute Lymphocytes 7.04 THOUS H (0.80-3.30 THOUS) Neutrophils 2 % L (51-75 %) Basophils 0 % (0-2 %) Blast 11 % Eosinophils 0 % (0-4 %) Lymphocytes 9 % L (20-46 %) Metamyelocytes 0 % (0-1 %) Monocytes 66 % H (4-11 %) Myelocytes 2 % Nucleated RBC Automated 0.4 /100 WBC (0 /100 WBC) Promyelocyte 9 % H (-1-0 %) MCV 89.3 fL (82.0-99.0 fL) Platelet Count 75 K/uL L (150-400 K/uL) RBC 2.71 M/uL L (4.00-5.20 M/uL) RDW 19.4 % H (11.5-14.5 %) WBC 78.2 K/uL H (4.8-10.8 K/uL) Bands 1 % (0-8 %) Absolute Monocytes 51.61 THOUS H (0.30-1.00 THOUS) Absolute Neutrophils 2.35 THOUS (1.90-7.00 THOUS) HCT 24.2 % L (37.0-47.0 %) HGB 8.1 g/dl L (12.0-16.0 g/dl) MCH 29.9 pg (27.0-32.0 pg) MCHC 33.5 g/dL (32.0-36.0 g/dL)LAB--HEMATOLOGY from 07/20/2012 4:00 PMPlatelet Count 64 K/uL L (150-400 K/uL)LAB--HEMATOLOGY from 07/21/2012 6:10 AMAbsolute Eosinophils 0.00 THOUS (0.00-0.50 THOUS) Absolute Basophils 0.00 THOUS (0.00-0.20 THOUS) Absolute Lymphocytes 5.40 THOUS H (0.80-3.30 THOUS) Schistocytes Occasional A Neutrophils 2 % L (51-75 %) Basophils 0 % (0-2 %) Blast 5 % Eosinophils 0 % (0-4 %) Lymphocytes 12 % L (20-46 %) Monocytes 74 % H (4-11 %) Nucleated RBC Automated 0.3 /100 WBC (0 /100 WBC) Promyelocyte 6 % H (-1-0 %) Differential Manual A MCV 89.8 fL (82.0-99.0 fL) Platelet Count 47 K/uL L (150-400 K/uL) RBC 2.56 M/uL L (4.00-5.20 M/uL) RDW 19.3 % H (11.5-14.5 %) WBC 45.0 K/uL H (4.8-10.8 K/uL) Bands 1 % (0-8 %) Absolute Monocytes 33.30 THOUS H (0.30-1.00 THOUS) Absolute Neutrophils 1.35 THOUS L (1.90-7.00 THOUS) HCT 23.0 % L (37.0-47.0 %) HGB 7.9 g/dl L (12.0-16.0 g/dl) MCH 30.9 pg (27.0-32.0 pg) MCHC 34.3 g/dL (32.0-36.0 g/dL)LAB--HEMATOLOGY from 07/21/2012 4:13 PMPlatelet Count 32 K/uL L (150-400 K/uL)LAB--HEMATOLOGY from 07/22/2012 4:50 AMAbsolute Eosinophils 0.00 THOUS (0.00-0.50 THOUS) Absolute Basophils 0.00 THOUS (0.00-0.20 THOUS) Absolute Lymphocytes 3.47 THOUS H (0.80-3.30 THOUS) Schistocytes Occasional A Neutrophils 23 % L (51-75 %) Basophils 0 % (0-2 %) Eosinophils 0 % (0-4 %) Lymphocytes 23 % (20-46 %) Metamyelocytes 2 % H (0-1 %) Monocytes 5 % (4-11 %) Myelocytes 12 % Nucleated RBC Automated 0.6 /100 WBC (0 /100 WBC) Promyelocyte 13 % H (-1-0 %) Differential Manual A MCV 86.9 fL (82.0-99.0 fL) Platelet Count 32 K/uL L (150-400 K/uL) RBC 3.43 M/uL L (4.00-5.20 M/uL) RDW 18.7 % H (11.5-14.5 %) WBC 15.1 K/uL H (4.8-10.8 K/uL) Bands 22 % H (0-8 %) Absolute Monocytes 0.76 THOUS (0.30-1.00 THOUS) Absolute Neutrophils 6.80 THOUS (1.90-7.00 THOUS) HCT 29.8 % L (37.0-47.0 %) HGB 10.1 g/dl L (12.0-16.0 g/dl) MCH 29.4 pg (27.0-32.0 pg) MCHC 33.9 g/dL (32.0-36.0 g/dL)LAB--HEMATOLOGY from 07/23/2012 6:46 AMAbsolute Basophils 0.00 THOUS (0.00-0.20 THOUS) Absolute Eosinophils 0.00 THOUS (0.00-0.50 THOUS) Absolute Lymphocytes 1.54 THOUS (0.80-3.30 THOUS) Schistocytes Occasional A Neutrophils 13 % L (51-75 %) Basophils 0 % (0-2 %) Blast 0 % Eosinophils 0 % (0-4 %) Lymphocytes 44 % (20-46 %) Metamyelocytes 2 % H (0-1 %) Monocytes 24 % H (4-11 %) Myelocytes 4 % Nucleated RBC Automated 49.0 /100 WBC (0 /100 WBC) Promyelocyte 11 % H (-1-0 %) Differential Manual A MCV 87.4 fL (82.0-99.0 fL) Platelet Count 19 K/uL L (150-400 K/uL) RBC 3.17 M/uL L (4.00-5.20 M/uL) RDW 18.2 % H (11.5-14.5 %) WBC 3.5 K/uL L (4.8-10.8 K/uL) Bands 2 % (0-8 %) Absolute Monocytes 0.84 THOUS (0.30-1.00 THOUS) Absolute Neutrophils 0.53 THOUS L (1.90-7.00 THOUS) HCT 27.7 % L (37.0-47.0 %) HGB 9.4 g/dl L (12.0-16.0 g/dl) MCH 29.7 pg (27.0-32.0 pg) MCHC 33.9 g/dL (32.0-36.0 g/dL)LAB--HEMATOLOGY from 07/24/2012 4:34 AMAbsolute Basophils 0.00 THOUS (0.00-0.20 THOUS) Absolute Eosinophils 0.00 THOUS (0.00-0.50 THOUS) Absolute Lymphocytes 0.54 THOUS L (0.80-3.30 THOUS) Differential Manual A Schistocytes Occasional A Neutrophils 37 % L (51-75 %) Basophils 0 % (0-2 %) Eosinophils 0 % (0-4 %) Lymphocytes 30 % (20-46 %) Monocytes 18 % H (4-11 %) Myelocytes 15 % Nucleated RBC Automated 54.2 /100 WBC (0 /100 WBC) MCV 88.2 fL (82.0-99.0 fL) Platelet Count 7 K/uL LL (150-400 K/uL) RBC 2.55 M/uL L (4.00-5.20 M/uL) RDW 17.8 % H (11.5-14.5 %) WBC 1.8 K/uL L (4.8-10.8 K/uL) Absolute Monocytes 0.32 THOUS (0.30-1.00 THOUS) Absolute Neutrophils 0.67 THOUS L (1.90-7.00 THOUS) HCT 22.5 % L (37.0-47.0 %) HGB 7.6 g/dl L (12.0-16.0 g/dl) MCH 29.8 pg (27.0-32.0 pg) MCHC 33.8 g/dL (32.0-36.0 g/dL)LAB--HEMATOLOGY from 07/24/2012 10:01 AMMCV 89.5 fL (82.0-99.0 fL) Platelet Count 49 K/uL L (150-400 K/uL) RBC 2.75 M/uL L (4.00-5.20 M/uL) RDW 17.9 % H (11.5-14.5 %) WBC 2.9 K/uL L (4.8-10.8 K/uL) HCT 24.6 % L (37.0-47.0 %) HGB 8.1 g/dl L (12.0-16.0 g/dl) MCH 29.5 pg (27.0-32.0 pg) MCHC 32.9 g/dL (32.0-36.0 g/dL)LAB--HEMATOLOGY from 07/25/2012 4:20 AMAbsolute Basophils 0.00 THOUS (0.00-0.20 THOUS) Absolute Eosinophils 0.00 THOUS (0.00-0.50 THOUS) Absolute Lymphocytes 0.48 THOUS L (0.80-3.30 THOUS) Differential Manual A Neutrophils 8 % L (51-75 %) Basophils 0 % (0-2 %) Eosinophils 0 % (0-4 %) Lymphocytes 48 % H (20-46 %) Monocytes 27 % H (4-11 %) Myelocytes 16 % Nucleated RBC Automated 75.9 /100 WBC (0 /100 WBC) MCV 89.3 fL (82.0-99.0 fL) Platelet Count 22 K/uL L (150-400 K/uL) RBC 2.91 M/uL L (4.00-5.20 M/uL) RDW 17.2 % H (11.5-14.5 %) WBC 1.0 K/uL L (4.8-10.8 K/uL) Bands 1 % (0-8 %) Absolute Monocytes 0.27 THOUS L (0.30-1.00 THOUS) Absolute Neutrophils 0.09 THOUS L (1.90-7.00 THOUS) HCT 26.0 % L (37.0-47.0 %) HGB 8.6 g/dl L (12.0-16.0 g/dl) MCH 29.6 pg (27.0-32.0 pg) MCHC 33.1 g/dL (32.0-36.0 g/dL)LAB--HEMATOLOGY from 07/26/2012 3:58 AMAbsolute Basophils 0.00 THOUS (0.00-0.20 THOUS) Absolute Eosinophils 0.00 THOUS (0.00-0.50 THOUS) Differential Manual A Neutrophils 20 % L (51-75 %) Basophils 0 % (0-2 %) Eosinophils 0 % (0-4 %) Lymphocytes 54 % H (20-46 %) Monocytes 11 % (4-11 %) Myelocytes 11 % Nucleated RBC Automated 0.0 /100 WBC (0 /100 WBC) Promyelocyte 2 % H (-1-0 %) MCV 90.3 fL (82.0-99.0 fL) MPV 9.1 fL L (9.4-12.4 fL) Platelet Count 35 K/uL L (150-400 K/uL) RBC 2.58 M/uL L (4.00-5.20 M/uL) RDW 17.3 % H (11.5-14.5 %) WBC 1.5 K/uL L (4.8-10.8 K/uL) Bands 2 % (0-8 %) Absolute Lymphocytes 0.81 THOUS (0.80-3.30 THOUS) Absolute Monocytes 0.17 THOUS L (0.30-1.00 THOUS) Absolute Neutrophils 0.33 THOUS L (1.90-7.00 THOUS) HCT 23.3 % L (37.0-47.0 %) HGB 7.7 g/dl L (12.0-16.0 g/dl) MCH 29.8 pg (27.0-32.0 pg) MCHC 33.0 g/dL (32.0-36.0 g/dL)LAB--HEMATOLOGY from 07/27/2012 4:51 AMAbsolute Eosinophils 0.00 THOUS (0.00-0.50 THOUS) Absolute Basophils 0.00 THOUS (0.00-0.20 THOUS) Differential Manual A Schistocytes Occasional A Neutrophils 21 % L (51-75 %) Basophils 0 % (0-2 %) Blast 1 % Eosinophils 0 % (0-4 %) Lymphocytes 56 % H (20-46 %) Metamyelocytes 2 % H (0-1 %) Monocytes 8 % (4-11 %) Myelocytes 2 % Nucleated RBC Automated 46.3 /100 WBC (0 /100 WBC) MCV 89.9 fL (82.0-99.0 fL) Platelet Count 17 K/uL L (150-400 K/uL) RBC 2.87 M/uL L (4.00-5.20 M/uL) RDW 16.9 % H (11.5-14.5 %) WBC 0.9 K/uL L (4.8-10.8 K/uL) Bands 10 % H (0-8 %) Absolute Lymphocytes 0.50 THOUS L (0.80-3.30 THOUS) Absolute Monocytes 0.07 THOUS L (0.30-1.00 THOUS) Absolute Neutrophils 0.28 THOUS L (1.90-7.00 THOUS) HCT 25.8 % L (37.0-47.0 %) HGB 8.6 g/dl L (12.0-16.0 g/dl) MCH 30.0 pg (27.0-32.0 pg) MCHC 33.3 g/dL (32.0-36.0 g/dL)LAB--HEMATOLOGY from 07/28/2012 5:25 AMAbsolute Eosinophils 0.00 THOUS (0.00-0.50 THOUS) Absolute Basophils 0.00 THOUS (0.00-0.20 THOUS) Differential Manual A Schistocytes Occasional A Neutrophils 35 % L (51-75 %) Basophils 0 % (0-2 %) Eosinophils 0 % (0-4 %) Lymphocytes 48 % H (20-46 %) Metamyelocytes 4 % H (0-1 %) Monocytes 2 % L (4-11 %) Myelocytes 2 % Nucleated RBC Automated 0.0 /100 WBC (0 /100 WBC) MCV 91.5 fL (82.0-99.0 fL) MPV 9.0 fL L (9.4-12.4 fL) Platelet Count 35 K/uL L (150-400 K/uL) RBC 2.84 M/uL L (4.00-5.20 M/uL) RDW 16.7 % H (11.5-14.5 %) WBC 1.1 K/uL L (4.8-10.8 K/uL) Bands 9 % H (0-8 %) Absolute Lymphocytes 0.53 THOUS L (0.80-3.30 THOUS) Absolute Monocytes 0.02 THOUS L (0.30-1.00 THOUS) Absolute Neutrophils 0.48 THOUS L (1.90-7.00 THOUS) HCT 26.0 % L (37.0-47.0 %) HGB 8.5 g/dl L (12.0-16.0 g/dl) MCH 29.9 pg (27.0-32.0 pg) MCHC 32.7 g/dL (32.0-36.0 g/dL)LAB--HEMATOLOGY from 07/29/2012 4:26 AMAbsolute Eosinophils 0.00 THOUS (0.00-0.50 THOUS) Absolute Basophils 0.00 THOUS (0.00-0.20 THOUS) Differential Manual A Neutrophils 34 % L (51-75 %) Basophils 0 % (0-2 %) Eosinophils 0 % (0-4 %) Lymphocytes 46 % (20-46 %) Metamyelocytes 4 % H (0-1 %) Monocytes 7 % (4-11 %) Myelocytes 3 % Nucleated RBC Automated 0.0 /100 WBC (0 /100 WBC) Promyelocyte 2 % H (-1-0 %) MCV 92.1 fL (82.0-99.0 fL) MPV 8.7 fL L (9.4-12.4 fL) Platelet Count 19 K/uL L (150-400 K/uL) RBC 2.65 M/uL L (4.00-5.20 M/uL) RDW 16.6 % H (11.5-14.5 %) WBC 1.0 K/uL L (4.8-10.8 K/uL) Bands 4 % (0-8 %) Absolute Lymphocytes 0.46 THOUS L (0.80-3.30 THOUS) Absolute Monocytes 0.07 THOUS L (0.30-1.00 THOUS) Absolute Neutrophils 0.38 THOUS L (1.90-7.00 THOUS) HCT 24.4 % L (37.0-47.0 %) HGB 8.0 g/dl L (12.0-16.0 g/dl) MCH 30.2 pg (27.0-32.0 pg) MCHC 32.8 g/dL (32.0-36.0 g/dL)LAB--HEMATOLOGY from 07/30/2012 6:13 AMAbsolute Eosinophils 0.00 THOUS (0.00-0.50 THOUS) Absolute Basophils 0.00 THOUS (0.00-0.20 THOUS) Differential Manual A Neutrophils 54 % (51-75 %) Basophils 0 % (0-2 %) Eosinophils 0 % (0-4 %) Lymphocytes 35 % (20-46 %) Metamyelocytes 1 % (0-1 %) Monocytes 2 % L (4-11 %) Nucleated RBC Automated 0.0 /100 WBC (0 /100 WBC) Promyelocyte 4 % H (-1-0 %) MCV 92.6 fL (82.0-99.0 fL) MPV 8.7 fL L (9.4-12.4 fL) Platelet Count 40 K/uL L (150-400 K/uL) RBC 2.71 M/uL L (4.00-5.20 M/uL) RDW 16.8 % H (11.5-14.5 %) WBC 1.3 K/uL L (4.8-10.8 K/uL) Bands 4 % (0-8 %) Absolute Lymphocytes 0.46 THOUS L (0.80-3.30 THOUS) Absolute Monocytes 0.03 THOUS L (0.30-1.00 THOUS) Absolute Neutrophils 0.75 THOUS L (1.90-7.00 THOUS) HCT 25.1 % L (37.0-47.0 %) HGB 8.1 g/dl L (12.0-16.0 g/dl) MCH 29.9 pg (27.0-32.0 pg) MCHC 32.3 g/dL (32.0-36.0 g/dL)LAB--HEMATOLOGY from 07/31/2012 4:08 AMAbsolute Basophils 0.00 THOUS (0.00-0.20 THOUS) Absolute Eosinophils 0.00 THOUS (0.00-0.50 THOUS) Differential Manual A Neutrophils 68 % (51-75 %) Basophils 0 % (0-2 %) Blast 1 % Eosinophils 0 % (0-4 %) Lymphocytes 29 % (20-46 %) Monocytes 2 % L (4-11 %) Nucleated RBC Automated 0.0 /100 WBC (0 /100 WBC) MCV 92.5 fL (82.0-99.0 fL) MPV 8.4 fL L (9.4-12.4 fL) Platelet Count 20 K/uL L (150-400 K/uL) RBC 2.52 M/uL L (4.00-5.20 M/uL) RDW 16.3 % H (11.5-14.5 %) WBC 0.9 K/uL L (4.8-10.8 K/uL) Absolute Lymphocytes 0.26 THOUS L (0.80-3.30 THOUS) Absolute Monocytes 0.02 THOUS L (0.30-1.00 THOUS) Absolute Neutrophils 0.61 THOUS L (1.90-7.00 THOUS) HCT 23.3 % L (37.0-47.0 %) HGB 7.5 g/dl L (12.0-16.0 g/dl) MCH 29.8 pg (27.0-32.0 pg) MCHC 32.2 g/dL (32.0-36.0 g/dL)LAB--HEMATOLOGY from 08/01/2012 4:43 AMAbsolute Basophils 0.00 THOUS (0.00-0.20 THOUS) Absolute Eosinophils 0.00 THOUS (0.00-0.50 THOUS) Differential Manual A Neutrophils 69 % (51-75 %) Basophils 0 % (0-2 %) Blast 1 % Eosinophils 0 % (0-4 %) Lymphocytes 23 % (20-46 %) Metamyelocytes 3 % H (0-1 %) Monocytes 1 % L (4-11 %) Nucleated RBC Automated 0.0 /100 WBC (0 /100 WBC) MCV 90.1 fL (82.0-99.0 fL) Platelet Count 17 K/uL L (150-400 K/uL) RBC 2.82 M/uL L (4.00-5.20 M/uL) RDW 17.4 % H (11.5-14.5 %) WBC 1.0 K/uL L (4.8-10.8 K/uL) Atypical Lymphs 1 % Bands 2 % (0-8 %) Absolute Lymphocytes 0.24 THOUS L (0.80-3.30 THOUS) Absolute Monocytes 0.01 THOUS L (0.30-1.00 THOUS) Absolute Neutrophils 0.71 THOUS L (1.90-7.00 THOUS) HCT 25.4 % L (37.0-47.0 %) HGB 8.3 g/dl L (12.0-16.0 g/dl) MCH 29.4 pg (27.0-32.0 pg) MCHC 32.7 g/dL (32.0-36.0 g/dL)LAB--HEMATOLOGY from 08/02/2012 4:49 AMAbsolute Basophils 0.00 THOUS (0.00-0.20 THOUS) Absolute Eosinophils 0.01 THOUS (0.00-0.50 THOUS) Differential Manual A Neutrophils 77 % H (51-75 %) Basophils 0 % (0-2 %) Eosinophils 1 % (0-4 %) Lymphocytes 19 % L (20-46 %) Monocytes 1 % L (4-11 %) Nucleated RBC Automated 8.6 /100 WBC (0 /100 WBC) MCV 90.6 fL (82.0-99.0 fL) MPV 9.3 fL L (9.4-12.4 fL) Platelet Count 36 K/uL L (150-400 K/uL) RBC 2.87 M/uL L (4.00-5.20 M/uL) RDW 17.0 % H (11.5-14.5 %) WBC 1.1 K/uL L (4.8-10.8 K/uL) Bands 2 % (0-8 %) Absolute Lymphocytes 0.21 THOUS L (0.80-3.30 THOUS) Absolute Monocytes 0.01 THOUS L (0.30-1.00 THOUS) Absolute Neutrophils 0.87 THOUS L (1.90-7.00 THOUS) HCT 26.0 % L (37.0-47.0 %) HGB 8.6 g/dl L (12.0-16.0 g/dl) MCH 30.0 pg (27.0-32.0 pg) MCHC 33.1 g/dL (32.0-36.0 g/dL)LAB--HEMATOLOGY from 08/03/2012 5:57 AMAbsolute Basophils 0.00 THOUS (0.00-0.20 THOUS) Absolute Eosinophils 0.00 THOUS (0.00-0.50 THOUS) Differential Manual A Neutrophils 75 % (51-75 %) Basophils 0 % (0-2 %) Eosinophils 0 % (0-4 %) Lymphocytes 20 % (20-46 %) Metamyelocytes 1 % (0-1 %) Monocytes 1 % L (4-11 %) Nucleated RBC Automated 5.9 /100 WBC (0 /100 WBC) Platelet Count 25 K/uL L (150-400 K/uL) MPV 9.4 fL (9.4-12.4 fL) MCV 91.7 fL (82.0-99.0 fL) RBC 2.90 M/uL L (4.00-5.20 M/uL) RDW 16.6 % H (11.5-14.5 %) WBC 1.1 K/uL L (4.8-10.8 K/uL) Atypical Lymphs 1 % Bands 2 % (0-8 %) Absolute Lymphocytes 0.23 THOUS L (0.80-3.30 THOUS) Absolute Monocytes 0.01 THOUS L (0.30-1.00 THOUS) Absolute Neutrophils 0.85 THOUS L (1.90-7.00 THOUS) HCT 26.6 % L (37.0-47.0 %) HGB 8.6 g/dl L (12.0-16.0 g/dl) MCH 29.7 pg (27.0-32.0 pg) MCHC 32.3 g/dL (32.0-36.0 g/dL)LAB--HEMATOLOGY from 08/04/2012 4:37 AMAbsolute Basophils 0.00 THOUS (0.00-0.20 THOUS) Absolute Eosinophils 0.00 THOUS (0.00-0.50 THOUS) Differential Reviewed Neutrophils 87 % H (51-75 %) Basophils 0 % (0-2 %) Eosinophils 0 % (0-4 %) Lymphocytes 11 % L (20-46 %) Monocytes 1 % L (4-11 %) Nucleated RBC Automated 4.2 /100 WBC (0 /100 WBC) MCV 91.1 fL (82.0-99.0 fL) MPV 9.1 fL L (9.4-12.4 fL) Platelet Count 52 K/uL L (150-400 K/uL) RBC 2.69 M/uL L (4.00-5.20 M/uL) RDW 16.3 % H (11.5-14.5 %) WBC 0.9 K/uL L (4.8-10.8 K/uL) Bands 2 % (0-8 %) Absolute Lymphocytes 0.10 THOUS L (0.80-3.30 THOUS) Absolute Monocytes 0.00 THOUS L (0.30-1.00 THOUS) Absolute Neutrophils 0.80 THOUS L (1.90-7.00 THOUS) HCT 24.5 % L (37.0-47.0 %) HGB 7.9 g/dl L (12.0-16.0 g/dl) MCH 29.4 pg (27.0-32.0 pg) MCHC 32.2 g/dL (32.0-36.0 g/dL)LAB--HEMATOLOGY from 08/05/2012 5:01 AMAbsolute Basophils 0.00 THOUS (0.00-0.20 THOUS) Absolute Eosinophils 0.00 THOUS (0.00-0.50 THOUS) Differential Reviewed Neutrophils 87 % H (51-75 %) Basophils 0 % (0-2 %) Eosinophils 0 % (0-4 %) Lymphocytes 12 % L (20-46 %) Monocytes 1 % L (4-11 %) Nucleated RBC Automated 7.4 /100 WBC (0 /100 WBC) MCV 90.3 fL (82.0-99.0 fL) MPV 11.0 fL (9.4-12.4 fL) Platelet Count 38 K/uL L (150-400 K/uL) RBC 3.08 M/uL L (4.00-5.20 M/uL) RDW 15.7 % H (11.5-14.5 %) WBC 0.6 K/uL L (4.8-10.8 K/uL) Absolute Lymphocytes 0.07 THOUS L (0.80-3.30 THOUS) Absolute Monocytes 0.01 THOUS L (0.30-1.00 THOUS) Absolute Neutrophils 0.52 THOUS L (1.90-7.00 THOUS) HCT 27.8 % L (37.0-47.0 %) HGB 9.1 g/dl L (12.0-16.0 g/dl) MCH 29.5 pg (27.0-32.0 pg) MCHC 32.7 g/dL (32.0-36.0 g/dL)LAB--HEMATOLOGY from 08/06/2012 4:56 AMAbsolute Basophils 0.00 THOUS (0.00-0.20 THOUS) Absolute Eosinophils 0.00 THOUS (0.00-0.50 THOUS) Differential Reviewed Neutrophils 85 % H (51-75 %) Basophils 0 % (0-2 %) Eosinophils 0 % (0-4 %) Lymphocytes 12 % L (20-46 %) Monocytes 2 % L (4-11 %) Nucleated RBC Automated 3.2 /100 WBC (0 /100 WBC) Platelet Count 25 K/uL L (150-400 K/uL) MPV 9.5 fL (9.4-12.4 fL) MCV 90.6 fL (82.0-99.0 fL) RBC 3.09 M/uL L (4.00-5.20 M/uL) RDW 15.4 % H (11.5-14.5 %) WBC 0.8 K/uL L (4.8-10.8 K/uL) Atypical Lymphs 1 % Bands 1 % (0-8 %) Absolute Lymphocytes 0.10 THOUS L (0.80-3.30 THOUS) Absolute Monocytes 0.02 THOUS L (0.30-1.00 THOUS) Absolute Neutrophils 0.69 THOUS L (1.90-7.00 THOUS) HCT 28.0 % L (37.0-47.0 %) HGB 9.3 g/dl L (12.0-16.0 g/dl) MCH 30.1 pg (27.0-32.0 pg) MCHC 33.2 g/dL (32.0-36.0 g/dL)LAB--HEMATOLOGY from 08/07/2012 5:47 AMAbsolute Basophils 0.00 THOUS (0.00-0.20 THOUS) Absolute Eosinophils 0.00 THOUS (0.00-0.50 THOUS) Differential Reviewed Neutrophils 81 % H (51-75 %) Basophils 0 % (0-2 %) Eosinophils 0 % (0-4 %) Lymphocytes 14 % L (20-46 %) Monocytes 3 % L (4-11 %) Nucleated RBC Automated 0.0 /100 WBC (0 /100 WBC) MCV 91.2 fL (82.0-99.0 fL) MPV 9.8 fL (9.4-12.4 fL) Platelet Count 57 K/uL L (150-400 K/uL) RBC 3.08 M/uL L (4.00-5.20 M/uL) RDW 15.5 % H (11.5-14.5 %) WBC 0.6 K/uL L (4.8-10.8 K/uL) Atypical Lymphs 2 % Absolute Lymphocytes 0.10 THOUS L (0.80-3.30 THOUS) Absolute Monocytes 0.02 THOUS L (0.30-1.00 THOUS) Absolute Neutrophils 0.49 THOUS L (1.90-7.00 THOUS) HCT 28.1 % L (37.0-47.0 %) HGB 9.3 g/dl L (12.0-16.0 g/dl) MCH 30.2 pg (27.0-32.0 pg) MCHC 33.1 g/dL (32.0-36.0 g/dL)LAB--HEMATOLOGY from 08/08/2012 4:17 AMMCV 91.2 fL (82.0-99.0 fL) MPV 9.6 fL (9.4-12.4 fL) Platelet Count 39 K/uL L (150-400 K/uL) RBC 3.06 M/uL L (4.00-5.20 M/uL) RDW 15.5 % H (11.5-14.5 %) WBC 0.3 K/uL L (4.8-10.8 K/uL) HCT 27.9 % L (37.0-47.0 %) HGB 9.1 g/dl L (12.0-16.0 g/dl) MCH 29.7 pg (27.0-32.0 pg) MCHC 32.6 g/dL (32.0-36.0 g/dL)LAB--HEMATOLOGY from 08/09/2012 4:17 AMMCV 91.2 fL (82.0-99.0 fL) MPV 9.7 fL (9.4-12.4 fL) Platelet Count 25 K/uL L (150-400 K/uL) RBC 2.83 M/uL L (4.00-5.20 M/uL) RDW 15.5 % H (11.5-14.5 %) WBC 0.2 K/uL L (4.8-10.8 K/uL) HCT 25.8 % L (37.0-47.0 %) HGB 8.5 g/dl L (12.0-16.0 g/dl) MCH 30.0 pg (27.0-32.0 pg) MCHC 32.9 g/dL (32.0-36.0 g/dL)LAB--HEMATOLOGY from 08/10/2012 6:10 AMMCV 92.3 fL (82.0-99.0 fL) Platelet Count 26 K/uL L (150-400 K/uL) RBC 2.73 M/uL L (4.00-5.20 M/uL) RDW 16.0 % H (11.5-14.5 %) WBC 0.2 K/uL L (4.8-10.8 K/uL) HCT 25.2 % L (37.0-47.0 %) HGB 8.3 g/dl L (12.0-16.0 g/dl) MCH 30.4 pg (27.0-32.0 pg) MCHC 32.9 g/dL (32.0-36.0 g/dL)LAB--HEMATOLOGY from 08/11/2012 5:39 AMMCV 92.5 fL (82.0-99.0 fL) Platelet Count 22 K/uL L (150-400 K/uL) RBC 2.66 M/uL L (4.00-5.20 M/uL) RDW 16.2 % H (11.5-14.5 %) WBC 0.3 K/uL L (4.8-10.8 K/uL) HCT 24.6 % L (37.0-47.0 %) HGB 8.0 g/dl L (12.0-16.0 g/dl) MCH 30.1 pg (27.0-32.0 pg) MCHC 32.5 g/dL (32.0-36.0 g/dL)LAB--HEMATOLOGY from 08/12/2012 5:45 AMMCV 91.7 fL (82.0-99.0 fL) Platelet Count 32 K/uL L (150-400 K/uL) RBC 2.64 M/uL L (4.00-5.20 M/uL) RDW 16.2 % H (11.5-14.5 %) WBC 0.5 K/uL L (4.8-10.8 K/uL) HCT 24.2 % L (37.0-47.0 %) HGB 7.9 g/dl L (12.0-16.0 g/dl) MCH 29.9 pg (27.0-32.0 pg) MCHC 32.6 g/dL (32.0-36.0 g/dL)LAB--HEMATOLOGY from 08/13/2012 4:55 AMAbsolute Basophils 0.00 THOUS (0.00-0.20 THOUS) Absolute Eosinophils 0.00 THOUS (0.00-0.50 THOUS) Differential Reviewed Neutrophils 67 % (51-75 %) Toxic Granulation Moderate A Basophils 0 % (0-2 %) Dohle Bodies Occasional A Eosinophils 0 % (0-4 %) Lymphocytes 10 % L (20-46 %) Monocytes 5 % (4-11 %) Nucleated RBC Automated 0.0 /100 WBC (0 /100 WBC) MCV 90.6 fL (82.0-99.0 fL) MPV 10.5 fL (9.4-12.4 fL) Platelet Count 37 K/uL L (150-400 K/uL) RBC 2.87 M/uL L (4.00-5.20 M/uL) RDW 16.7 % H (11.5-14.5 %) WBC 0.7 K/uL L (4.8-10.8 K/uL) Bands 18 % H (0-8 %) Absolute Lymphocytes 0.07 THOUS L (0.80-3.30 THOUS) Absolute Monocytes 0.04 THOUS L (0.30-1.00 THOUS) Absolute Neutrophils 0.60 THOUS L (1.90-7.00 THOUS) HCT 26.0 % L (37.0-47.0 %) HGB 8.6 g/dl L (12.0-16.0 g/dl) MCH 30.0 pg (27.0-32.0 pg) MCHC 33.1 g/dL (32.0-36.0 g/dL)LAB--HEMATOLOGY from 08/14/2012 5:30 AMAbsolute Basophils 0.01 THOUS (0.00-0.20 THOUS) Absolute Eosinophils 0.00 THOUS (0.00-0.50 THOUS) Differential Reviewed Neutrophils 68 % (51-75 %) Toxic Granulation Moderate A Basophils 0 % (0-2 %) Dohle Bodies Occasional A Eosinophils 0 % (0-4 %) Lymphocytes 11 % L (20-46 %) Metamyelocytes 1 % (0-1 %) Monocytes 4 % (4-11 %) Nucleated RBC Automated 0.0 /100 WBC (0 /100 WBC) MCV 90.2 fL (82.0-99.0 fL) MPV 10.3 fL (9.4-12.4 fL) Platelet Count 73 K/uL L (150-400 K/uL) RBC 3.57 M/uL L (4.00-5.20 M/uL) RDW 16.8 % H (11.5-14.5 %) WBC 2.5 K/uL L (4.8-10.8 K/uL) Bands 17 % H (0-8 %) Absolute Lymphocytes 0.28 THOUS L (0.80-3.30 THOUS) Absolute Monocytes 0.10 THOUS L (0.30-1.00 THOUS) Absolute Neutrophils 2.13 THOUS (1.90-7.00 THOUS) HCT 32.2 % L (37.0-47.0 %) HGB 10.4 g/dl L (12.0-16.0 g/dl) MCH 29.1 pg (27.0-32.0 pg) MCHC 32.3 g/dL (32.0-36.0 g/dL)LAB--HEMATOLOGY from 08/15/2012 4:27 AMAbsolute Basophils 0.01 THOUS (0.00-0.20 THOUS) Absolute Eosinophils 0.01 THOUS (0.00-0.50 THOUS) Differential Reviewed Neutrophils 82 % H (51-75 %) Toxic Granulation Occasional A Basophils 0 % (0-2 %) Eosinophils 0 % (0-4 %) Lymphocytes 7 % L (20-46 %) Metamyelocytes 1 % (0-1 %) Monocytes 1 % L (4-11 %) Nucleated RBC Automated 0.0 /100 WBC (0 /100 WBC) MCV 90.9 fL (82.0-99.0 fL) MPV 10.6 fL (9.4-12.4 fL) Platelet Count 58 K/uL L (150-400 K/uL) RBC 2.97 M/uL L (4.00-5.20 M/uL) RDW 16.5 % H (11.5-14.5 %) WBC 2.4 K/uL L (4.8-10.8 K/uL) Bands 10 % H (0-8 %) Absolute Lymphocytes 0.17 THOUS L (0.80-3.30 THOUS) Absolute Monocytes 0.02 THOUS L (0.30-1.00 THOUS) Absolute Neutrophils 2.21 THOUS (1.90-7.00 THOUS) HCT 27.0 % L (37.0-47.0 %) HGB 8.8 g/dl L (12.0-16.0 g/dl) MCH 29.6 pg (27.0-32.0 pg) MCHC 32.6 g/dL (32.0-36.0 g/dL)LAB--HEMATOLOGY from 08/16/2012 5:24 AMAbsolute Basophils 0.00 THOUS (0.00-0.20 THOUS) Absolute Eosinophils 0.00 THOUS (0.00-0.50 THOUS) Differential Manual A Neutrophils 84 % H (51-75 %) Toxic Granulation Occasional A Basophils 0 % (0-2 %) Eosinophils 0 % (0-4 %) Lymphocytes 7 % L (20-46 %) Monocytes 3 % L (4-11 %) Nucleated RBC Automated 0.0 /100 WBC (0 /100 WBC) MCV 90.7 fL (82.0-99.0 fL) MPV 10.2 fL (9.4-12.4 fL) Platelet Count 73 K/uL L (150-400 K/uL) RBC 2.69 M/uL L (4.00-5.20 M/uL) RDW 16.3 % H (11.5-14.5 %) WBC 2.8 K/uL L (4.8-10.8 K/uL) Bands 6 % (0-8 %) Absolute Lymphocytes 0.20 THOUS L (0.80-3.30 THOUS) Absolute Monocytes 0.08 THOUS L (0.30-1.00 THOUS) Absolute Neutrophils 2.52 THOUS (1.90-7.00 THOUS) HCT 24.4 % L (37.0-47.0 %) HGB 8.3 g/dl L (12.0-16.0 g/dl) MCH 30.9 pg (27.0-32.0 pg) MCHC 34.0 g/dL (32.0-36.0 g/dL)LAB--HEMATOLOGY from 08/17/2012 4:02 AMAbsolute Basophils 0.00 THOUS (0.00-0.20 THOUS) Absolute Eosinophils 0.03 THOUS (0.00-0.50 THOUS) Differential Manual A Neutrophils 85 % H (51-75 %) Toxic Granulation Occasional A Basophils 0 % (0-2 %) Dohle Bodies Occasional A Eosinophils 1 % (0-4 %) Lymphocytes 5 % L (20-46 %) Metamyelocytes 1 % (0-1 %) Monocytes 1 % L (4-11 %) Nucleated RBC Automated 0.0 /100 WBC (0 /100 WBC) Polychromasia Occasional A MCV 91.4 fL (82.0-99.0 fL) MPV 9.6 fL (9.4-12.4 fL) Platelet Count 92 K/uL L (150-400 K/uL) RBC 2.66 M/uL L (4.00-5.20 M/uL) RDW 16.3 % H (11.5-14.5 %) WBC 3.4 K/uL L (4.8-10.8 K/uL) Bands 7 % (0-8 %) Absolute Lymphocytes 0.17 THOUS L (0.80-3.30 THOUS) Absolute Monocytes 0.03 THOUS L (0.30-1.00 THOUS) Absolute Neutrophils 3.13 THOUS (1.90-7.00 THOUS) HCT 24.3 % L (37.0-47.0 %) HGB 7.9 g/dl L (12.0-16.0 g/dl) MCH 29.7 pg (27.0-32.0 pg) MCHC 32.5 g/dL (32.0-36.0 g/dL)LAB--HEMATOLOGY from 08/18/2012 6:10 AMAbsolute Basophils 0.01 THOUS (0.00-0.20 THOUS) Absolute Eosinophils 0.01 THOUS (0.00-0.50 THOUS) Neutrophils 83 % H (51-75 %) Basophils 0 % (0-2 %) Eosinophils 0 % (0-4 %) Immature Granulocytes 1.9 % H (0.0-1.0 %) Lymphocytes 10 % L (20-46 %) Monocytes 5 % (4-11 %) Nucleated RBC Automated 0.0 /100 WBC (0 /100 WBC) MCV 93.5 fL (82.0-99.0 fL) MPV 9.6 fL (9.4-12.4 fL) Platelet Count 119 K/uL L (150-400 K/uL) RBC 2.61 M/uL L (4.00-5.20 M/uL) RDW 16.6 % H (11.5-14.5 %) WBC 3.1 K/uL L (4.8-10.8 K/uL) Absolute Lymphocytes 0.31 THOUS L (0.80-3.30 THOUS) Absolute Monocytes 0.14 THOUS L (0.30-1.00 THOUS) Absolute Neutrophils 2.56 THOUS (1.90-7.00 THOUS) HCT 24.4 % L (37.0-47.0 %) HGB 7.9 g/dl L (12.0-16.0 g/dl) MCH 30.3 pg (27.0-32.0 pg) MCHC 32.4 g/dL (32.0-36.0 g/dL)LAB--HEMATOLOGY from 08/19/2012 5:46 AMAbsolute Basophils 0.08 THOUS (0.00-0.20 THOUS) Absolute Eosinophils 0.00 THOUS (0.00-0.50 THOUS) Differential Reviewed Neutrophils 77 % H (51-75 %) Basophils 2 % (0-2 %) Eosinophils 0 % (0-4 %) Lymphocytes 7 % L (20-46 %) Metamyelocytes 3 % H (0-1 %) Monocytes 1 % L (4-11 %) Nucleated RBC Automated 0.0 /100 WBC (0 /100 WBC) MCV 94.1 fL (82.0-99.0 fL) MPV 9.8 fL (9.4-12.4 fL) Platelet Count 145 K/uL L (150-400 K/uL) RBC 2.56 M/uL L (4.00-5.20 M/uL) RDW 16.8 % H (11.5-14.5 %) WBC 3.9 K/uL L (4.8-10.8 K/uL) Bands 11 % H (0-8 %) Absolute Lymphocytes 0.27 THOUS L (0.80-3.30 THOUS) Absolute Monocytes 0.04 THOUS L (0.30-1.00 THOUS) Absolute Neutrophils 3.43 THOUS (1.90-7.00 THOUS) HCT 24.1 % L (37.0-47.0 %) HGB 7.7 g/dl L (12.0-16.0 g/dl) MCH 30.1 pg (27.0-32.0 pg) MCHC 32.0 g/dL (32.0-36.0 g/dL)LAB--HEMATOLOGY from 08/20/2012 5:12 AMAbsolute Basophils 0.04 THOUS (0.00-0.20 THOUS) Absolute Eosinophils 0.02 THOUS (0.00-0.50 THOUS) Differential Reviewed Neutrophils 85 % H (51-75 %) Toxic Granulation Occasional A Basophils 1 % (0-2 %) Eosinophils 1 % (0-4 %) Lymphocytes 4 % L (20-46 %) Metamyelocytes 2 % H (0-1 %) Monocytes 5 % (4-11 %) Myelocytes 1 % Nucleated RBC Automated 0.0 /100 WBC (0 /100 WBC) MCV 93.8 fL (82.0-99.0 fL) MPV 9.5 fL (9.4-12.4 fL) Platelet Count 172 K/uL (150-400 K/uL) RBC 2.56 M/uL L (4.00-5.20 M/uL) RDW 16.9 % H (11.5-14.5 %) WBC 4.3 K/uL L (4.8-10.8 K/uL) Bands 4 % (0-8 %) Absolute Lymphocytes 0.17 THOUS L (0.80-3.30 THOUS) Absolute Monocytes 0.22 THOUS L (0.30-1.00 THOUS) Absolute Neutrophils 3.83 THOUS (1.90-7.00 THOUS) HCT 24.0 % L (37.0-47.0 %) HGB 7.8 g/dl L (12.0-16.0 g/dl) MCH 30.5 pg (27.0-32.0 pg) MCHC 32.5 g/dL (32.0-36.0 g/dL)LAB--HEMATOLOGY from 08/21/2012 4:56 AMAbsolute Basophils 0.00 THOUS (0.00-0.20 THOUS) Absolute Eosinophils 0.00 THOUS (0.00-0.50 THOUS) Differential Manual A Neutrophils 68 % (51-75 %) Bands 11 % H (0-8 %) Basophils 0 % (0-2 %) Blast 1 % Eosinophils 0 % (0-4 %) Lymphocytes 7 % L (20-46 %) Metamyelocytes 1 % (0-1 %) Monocytes 12 % H (4-11 %) Nucleated RBC Automated 0.0 /100 WBC (0 /100 WBC) MCV 93.3 fL (82.0-99.0 fL) MPV 9.7 fL (9.4-12.4 fL) Platelet Count 192 K/uL (150-400 K/uL) RBC 2.40 M/uL L (4.00-5.20 M/uL) RDW 17.0 % H (11.5-14.5 %) WBC 4.1 K/uL L (4.8-10.8 K/uL) Absolute Lymphocytes 0.29 THOUS L (0.80-3.30 THOUS) Absolute Monocytes 0.49 THOUS (0.30-1.00 THOUS) Absolute Neutrophils 3.24 THOUS (1.90-7.00 THOUS) HCT 22.4 % L (37.0-47.0 %) HGB 7.4 g/dl L (12.0-16.0 g/dl) MCH 30.8 pg (27.0-32.0 pg) MCHC 33.0 g/dL (32.0-36.0 g/dL)LAB--HEMATOLOGY from 08/22/2012 5:03 AMAbsolute Basophils 0.09 THOUS (0.00-0.20 THOUS) Absolute Eosinophils 0.04 THOUS (0.00-0.50 THOUS) Differential Manual A Neutrophils 69 % (51-75 %) Bands 4 % (0-8 %) Basophils 2 % (0-2 %) Eosinophils 1 % (0-4 %) Lymphocytes 11 % L (20-46 %) Metamyelocytes 2 % H (0-1 %) Monocytes 10 % (4-11 %) Myelocytes 1 % Nucleated RBC Automated 0.0 /100 WBC (0 /100 WBC) MCV 92.9 fL (82.0-99.0 fL) MPV 8.9 fL L (9.4-12.4 fL) Platelet Count 198 K/uL (150-400 K/uL) RBC 2.41 M/uL L (4.00-5.20 M/uL) RDW 17.5 % H (11.5-14.5 %) WBC 4.3 K/uL L (4.8-10.8 K/uL) Absolute Lymphocytes 0.47 THOUS L (0.80-3.30 THOUS) Absolute Monocytes 0.43 THOUS (0.30-1.00 THOUS) Absolute Neutrophils 3.14 THOUS (1.90-7.00 THOUS) HCT 22.4 % L (37.0-47.0 %) HGB 7.4 g/dl L (12.0-16.0 g/dl) MCH 30.7 pg (27.0-32.0 pg) MCHC 33.0 g/dL (32.0-36.0 g/dL)LAB--IMMUNOLOGY from 07/10/2012 7:40 Josie, Leukemia Panel See Comment Performed Antibodies See Comment LAB--IMMUNOLOGY from 08/12/2012 9:00 Josie, Leukemia Panel See Report Performed Antibodies See Comment LAB--MICROBIOLOGY from 07/10/2012 1:23 PMBlood Culture #1 Source: Blood Collected: 07/10/12 13:23 Site: Port-a-cath Received : 07/10/12 13:39 Order#: [id number] Blood Culture #1 FINAL 07/16/12 04:15 No growth after 5 days of incubation. URIBE FOR RESULTS: * - NEW RESULT - RESULT WAS MODIFIED AFTER FINAL STATUS SET LAB--MICROBIOLOGY from 07/10/2012 1:30 PMBlood Culture #2 Source: Blood Collected: 07/10/12 13:30 Site: Peripheral, Left Arm Received : 07/10/12 13:39 Order#: [id number] Blood Culture #2 FINAL 07/16/12 04:15 No growth after 5 days of incubation. URIBE FOR RESULTS: * - NEW RESULT - RESULT WAS MODIFIED AFTER FINAL STATUS SET LAB--MICROBIOLOGY from 07/11/2012 3:40 AMUrine Culture Source: Urine Collected: 07/11/12 03:40 Site: Clean Catch Received : 07/11/12 03:47 Order#: [id number] Urine Culture FINAL 07/13/12 09:55 No growth URIBE FOR RESULTS: * - NEW RESULT - RESULT WAS MODIFIED AFTER FINAL STATUS SET LAB--MICROBIOLOGY from 08/12/2012 4:34 PMBlood Culture #1 Source: Blood Collected: 08/12/12 16:34 Site: Peripheral, Left Hand Received : 08/12/12 16:47 Order#: [id number] Aerobic bottle ONLY received Blood Culture #1 FINAL 08/18/12 06:15 No growth after 5 days of incubation. URIBE FOR RESULTS: * - NEW RESULT - RESULT WAS MODIFIED AFTER FINAL STATUS SET LAB--MICROBIOLOGY from 08/12/2012 4:38 PMBlood Culture #2 A Source: Blood Collected: 08/12/12 16:38 Site: Line, Central Received : 08/12/12 16:47 Order#: [id number] Critical value called to and read back by Destiny Crow RN 08/13/2012 13:36 Blood Culture #2 FINAL 08/18/12 07:39 Staphylococcus, coagulase negative probable contaminant; no further work-up will be performed. - Differential time to positive: 19.7 hours - A blood culture drawn through a catheter with a differential time to positivity at least 2 hours sooner than one drawn from a peripheral vein at the same time suggests a catheter-related bloodstream infection. URIBE FOR RESULTS: * - NEW RESULT - RESULT WAS MODIFIED AFTER FINAL STATUS SET LAB--MICROBIOLOGY from 08/12/2012 4:55 PMRespiratory Virus PCR (RVP) including H1N1 Source: Nasopharynx swab Collected: 08/12/12 16:55 Site: Received : 08/12/12 17:06 Order#: [id number] Respiratory Virus Panel - PCR FINAL 08/13/12 13:43 Negative for all strains tested. . Specimen tested for the following viral strains: Influenza A, Influenza A subtype H1, Influenza A subtype H3, Influenza A 2009 H1N1, Influenza B, Respiratory Syncytial Virus subtype A, Respiratory Syncytial Virus subtype B, Adenovirus B/E, Adenovirus C, Rhinovirus, Parainfluenza virus 1, Parainfluenza virus 2, Parainfluenza virus 3, and Human Metapneumovirus. URIBE FOR RESULTS: * - NEW RESULT - RESULT WAS MODIFIED AFTER FINAL STATUS SET LAB--MICROBIOLOGY from 08/12/2012 5:10 PMSputum Culture and smear Source: Sputum Collected: 08/12/12 17:10 Site: Received : 08/12/12 17:28 Order#: [id number] Gram Stain FINAL 08/12/12 17:47 OIF=Oil Immersion Field LPF=Low Power Field 10 or more epithelial cells per low power (10X) field. This specimen is not commissary representative of lower respiratory ree, therefore it is unacceptable for culture. Respiratory Care has been notified that the specimen must be recollected. Sputum/Lower Respiratory Culture CANCELLED 08/12/12 17:47 - cancelled on 08/12/12 17:47 by [facility] Specimen unacceptable. URIBE FOR RESULTS: * - NEW RESULT - RESULT WAS MODIFIED AFTER FINAL STATUS SET Legionella pneumophila grp 1A Urine Ag Source: Urine Collected: 08/12/12 17:10 Site: Clean Catch Received : 08/12/12 17:28 Order#: [id number] Leg. pneumophilia grp 1A urine Ag FINAL 08/12/12 17:45 Negative URIBE FOR RESULTS: * - NEW RESULT - RESULT WAS MODIFIED AFTER FINAL STATUS SET LAB--MICROBIOLOGY from 08/14/2012 4:48 PMCryptococcal Antigen, Blood Source: Blood Collected: 08/14/12 16:48 Site: Received : 08/14/12 16:55 Order#: [id number] Cryptococcal Antigen, Blood FINAL 08/14/12 19:33 Negative URIBE FOR RESULTS: * - NEW RESULT - RESULT WAS MODIFIED AFTER FINAL STATUS SET LAB--MICROBIOLOGY from 08/15/2012 11:40 AMAFB (Acid Fast) Culture and smear ( Preliminary Result) Source: Surgical-Tissue Collected: 11:40 Site: L arm Received : 08/15/12 13:08 Order#: [id number] Stain, Acid Fast FINAL 08/16/12 13:48 No acid fast bacilli seen AFB Culture PLATED URIBE FOR RESULTS: * - NEW RESULT - RESULT WAS MODIFIED AFTER FINAL STATUS SET Fungal Culture and smear A (Preliminary Result) Source: Surgical-Tissue Collected: 08/15/12 11:40 Site: L arm Received : 08/15/12 13:08 Order#: [id number] Calcofluor White Stain FINAL 08/16/12 14:25 Few Fungal elements (hyphal forms) seen Fungal Culture PRELIM 08/19/12 13:46 Mold being identified scant amount URIBE FOR RESULTS: * - NEW RESULT - RESULT WAS MODIFIED AFTER FINAL STATUS SET Tissue Culture (Aerobic and Anaerobic) with Smear A (Preliminary Result) Source: Surgical-Tissue Collected: 08/15/12 11:40 Site: L arm Received : 08/15/12 13:07 Order#: [id number] Result called to Raul Castro RN 08/18/2012 08:53 Gram Stain FINAL 08/15/12 13:51 OIF=Oil Immersion Field LPF=Low Power Field Few (1-5/OIF) white blood cells Many (10-20/OIF) gram positive cocci in pairs Few (1-5/OIF) gram positive rods Aerobic Tissue Culture PRELIM 08/19/12 07:29 Staphylococcus, coagulase negative moderate amount Enterococcus faecium - Vancomycin Resistant moderate amount Corynebacterium species moderate amount No further workup will be performed on this isolate. Sta. coag neg E. fcm VRE Antibiotic HEMANTH INT HEMANTH INT Ampicillin >=32 R Clindamycin >=8 R Erythromycin >=8 R Gentamicin High Level [place] SYN-S S Linezolid 2 S Oxacillin >=4 R Tetracycline <=1 S Trimethoprim/Sulfa 160 R Vancomycin 2 S >=32 R S=SUSCEPTIBLE I=INTERMEDIATE R=RESISTANT S-DD=SUSCEPTIBLE, DOSE DEPENDENT Anaerobic Culture PRELIM 08/17/12 12:10 No anaerobes isolated URIBE FOR RESULTS: * - NEW RESULT - RESULT WAS MODIFIED AFTER FINAL STATUS SET LAB--MICROBIOLOGY from 08/15/2012 12:33 PMAFB (Acid Fast) Culture and smear ( Preliminary Result) Source: Bronchial Washing Collected: 12:33 Site: Left Upper Received : 08/15/12 13:06 Order#: [id number] Stain, Acid Fast FINAL 08/16/12 13:48 No acid fast bacilli seen AFB Culture PLATED URIBE FOR RESULTS: * - NEW RESULT - RESULT WAS MODIFIED AFTER FINAL STATUS SET Bronchial Culture and smear Source: Bronchial Washing Collected: 08/15/12 12:33 Site: Left Upper Received : 08/15/12 13:05 Order#: [id number] Gram Stain FINAL 08/15/12 13:51 OIF=Oil Immersion Field LPF=Low Power Field Few (1-5/OIF) white blood cells No squamous epithelial cells Rare (0-1/OIF) gram positive cocci, resembling Staphylococcus Bronchial Culture FINAL 08/18/12 09:36 No pathogens isolated Normal respiratory ree isolated, moderate amount URIBE FOR RESULTS: * - NEW RESULT - RESULT WAS MODIFIED AFTER FINAL STATUS SET Fungal Culture and smear (Preliminary Result) Source: Bronchial Washing Collected: 08/15/12 12:33 Site: Left Upper Received : 08/15/12 13:06 Order#: [id number] Calcofluor White Stain FINAL 08/16/12 14:24 No fungal elements seen Fungal Culture PRELIM 08/23/12 04:42 Culture in progress No growth after 1 week of incubation. URIBE FOR RESULTS: * - NEW RESULT - RESULT WAS MODIFIED AFTER FINAL STATUS SET LAB--MICROBIOLOGY from 08/22/2012 2:35 PMFluid Culture (Aerobic and Anaerobic) with Smear (Preliminary Result) Source: Fluid Collected: 08/22/12 14:35 Site: Pleural lft Received : 08/22/12 15:23 Order#: [id number] Gram Stain FINAL 08/22/12 16:19 OIF=Oil Immersion Field LPF=Low Power Field Moderate (5-10/OIF) white blood cells Many (10-20/OIF) red blood cells No microorganisms observed Aerobic Body Fluid Culture PRELIM 08/23/12 10:44 No growth Anaerobic Culture PLATED URIBE FOR RESULTS: * - NEW RESULT - RESULT WAS MODIFIED AFTER FINAL STATUS SET Fungal Culture and smear (Preliminary Result) Source: Fluid Collected: 08/22/12 14:35 Site: Pleural lft Received : 08/22/12 15:23 Order#: [id number] Calcofluor White Stain FINAL 08/23/12 13:53 No fungal elements seen Fungal Culture PRELIM 08/23/12 09:23 Culture in progress URIBE FOR RESULTS: * - NEW RESULT - RESULT WAS MODIFIED AFTER FINAL STATUS SET LAB--SERODIAGNOSIS from 08/12/2012 4:38 PMAspergillus Ag <0.500 index (-<0.5 index )LAB--SERODIAGNOSIS from 08/15/2012 4:23 PMAspergillus Ag Source BAL Aspergillus Antigen Index <0.500 index (-<0.5 index)LAB--TOXICOLOGY & THERAPEUTIC DRUGS from 07/11/2012 9:12 AMVancomycin Trough 11.5 ug/mL (10.0-20.0 ug/mL)LAB--TOXICOLOGY & THERAPEUTIC DRUGS from 08/14/2012 5:30 AMVancomycin Trough 19.3 ug/mL (10.0-20.0 ug/mL)LAB--TOXICOLOGY & THERAPEUTIC DRUGS from 08/19 5:46 AMVancomycin Trough 25.6 ug/mL H (10.0-20.0 ug/mL)LAB--URINE TESTS from 07/11/2012 3:40 AMAppearance Clear Bilirubin Negative (Negative ) Blood Negative (Negative ) Color Dk Yellow Glucose Negative (Negative ) Ketones, Urine Pos 1+ A (Negative ) Leukocytes Esterase Negative (Negative ) Nitrites Negative (Negative ) pH, Urine 5.0 (5.0-8.0 ) Protein Pos 1+ A (Negative ) Specific [place] 1.022 (1.003-1.030 ) Collection Type: Clean Catch Urobilinogen Negative mg/dL (-<1.0 mg/dL) Epithelial Cells 5-10 /HPF Granular Casts 1-3 /LPF A WBC 0-2 /HPF (0-4 /HPF)
--- OUTSIDE RECORDS SUMMARY | 2016-09-28 17:52 | XMS REPORT ---
Author Author [facility], [facility] - Organization Unknown Address Unknown [...] the responsibility of the patient or patient food service sales representatives to confirm the list of medications with [...] 380 mg IV daily (in [facility]) Stopped medicationseye vitamin; 1 tablet oral daily; [...] Pheresis LR Irradiated PP LR IR #2 [id number] selected 07/09/12 17:50 LHOGA (Preliminary Result)LAB--BLOOD BANK from 07/09/2012 9:36 PMPlatelet Pheresis LR Irradiated PP LR IR #2 [id number] p.Transfus 21:36 LAB--BLOOD BANK from 07/09/2012 10:19 PMCryoprecipitate (Preliminary Result)CRY Pool Thawed [id number] selected 07/09/12 22:19 LHOGA CRY Pool Thawed [id number] selected 07/09/12 22:19 LHOGALAB-- BLOOD BANK from 07/09/2012 10:42 PMCryoprecipitate CRY Pool Thawed [id number] p.Transfus 07/09/12 22:42 CRY Pool Thawed [id number] p.Transfus 07/09/12 22:42LAB--BLOOD BANK from 07/10/2012 7:49 AMRed Blood Cells LR Irradiated RCLR IR -1 [id number] selected 07/10/12 07:49 SXCHA (Preliminary Result) Platelet Pheresis LR Irradiated PP LR IR #2 [id number] selected 07/10/12 07:49 SXCHA (Preliminary Result)LAB--BLOOD BANK from 07/10/2012 12: 55 PMPlatelet Pheresis LR Irradiated PP LR IR #2 [id number] p.Transfus 07/10/12 12:55 LAB--BLOOD BANK from 07/10/2012 1:01 PMRed Blood Cells LR Irradiated RCLR IR -1 [id number] selected 07/10/12 13:01 KEYUR (Preliminary Result)LAB--BLOOD BANK from 07/10/2012 3:29 PMRed Blood Cells LR Irradiated RCLR IR -1 [id number] p.Transfus 10/17 15:29 LAB--BLOOD BANK from 07/10/2012 8:33 PMRed Blood Cells LR Irradiated RCLR IR -1 [id number] p.Transfus 07/10/12 20:33 LAB--BLOOD BANK from 07/10/2012 9:38 PMPlatelet Pheresis LR Irradiated PP LR IR #2 [id number] selected 07/10/12 21:38 PORSHA (Preliminary Result)LAB-- BLOOD BANK from 07/10/2012 11:05 PMPlatelet Pheresis LR Irradiated PP LR IR [id number] selected 07/10/12 23:05 CSAL (Preliminary Result) LAB--BLOOD BANK from 07/10/2012 11:25 PMPlatelet Pheresis LR Irradiated PP LR IR [id number] p.Transfus 07/10/12 23:25 LAB--BLOOD BANK from 07/11/2012 9:18 AMPlatelet Pheresis LR Irradiated PP LR IR #2 [id number] selected 07/11/12 09:18 KEYUR (Preliminary Result)LAB--BLOOD BANK from 07/11/2012 9:21 AMPlatelet Pheresis LR Irradiated PP LR IR #2 [id number] p.Transfus 07/11/12 09:21 LAB--BLOOD BANK from 07/12/2012 2: 18 PMPlatelet Pheresis LR Irradiated PP LR IR [id number] selected 07/12/12 14:18 SETHUGH (Preliminary Result)LAB--BLOOD BANK from 07/12/2012 3:15 PMPlatelet Pheresis LR Irradiated PP LR IR [id number] p.Transfus 07/12/12 15:15 LAB--BLOOD BANK from 07/14/2012 8:43 AMPlatelet Pheresis LR Irradiated PP LR IR #2 [id number] selected 08:43 SXCHA (Preliminary Result)LAB--BLOOD BANK from 07/14/2012 9:54 AMPlatelet Pheresis LR Irradiated PP LR IR #2 [id number] p.Transfus 07/14/12 09:54 LAB--BLOOD BANK from 07/14/2012 10:00 AMCryoprecipitate (Preliminary Result)CRY Pool Thawed [id number] selected 07/14/12 10:00 [facility] CRY Pool Thawed [id number] selected 07/14/12 10[facility]00 [facility] 07/14/2012 11:27 AMCryoprecipitate CRY Pool Thawed [id number] p.Transfus 07/14/12 11:27 LAB--BLOOD BANK from 07/14/2012 12:35 PMCryoprecipitate CRY Pool Thawed [id number] p.Transfus 07/14/12 12 :35 LAB--BLOOD BANK from 07/15/2012 6:53 PMCryoprecipitate (Preliminary Result) CRY Pool Thawed [id number] selected 07/15/12 18:53 LHOGA CRY Pool Thawed [id number] selected 07/15/12 18:53 LHOGALAB-- BLOOD BANK from 07/15/2012 7:16 PMCryoprecipitate CRY Pool Thawed [id number] p.Transfus 07/15/12 19:16 CRY Pool Thawed [id number] p.Transfus 07/15/12 19:16LAB--BLOOD BANK from 07/17/2012 11:36 PMCryoprecipitate (Preliminary Result)CRY Pool Thawed [id number] selected 07/17/12 23:36 SBARR CRY Pool Thawed [id number] selected 07/17/12 23:36 SBARRLAB-- BLOOD BANK from 07/17/2012 11:43 PMCryoprecipitate CRY Pool Thawed [id number] p.Transfus 07/17/12 23:43 CRY Pool Thawed [id number] p.Transfus 07/17/12 23:43LAB--BLOOD BANK from 07/18/2012 6:39 PMPlatelet Pheresis LR Irradiated PP LR IR #3 [id number] selected 07/18/12 18:39 PORSHA (Preliminary Result)LAB-- BLOOD BANK from 07/18/2012 10:22 PMPlatelet Pheresis LR Irradiated PP LR IR #3 [id number] p.Transfus 07/18/12 22:22 LAB--BLOOD BANK from 2012 5:30 PMCryoprecipitate (Preliminary Result)CRY Pool Thawed [id number] selected 07/20/12 17:30 PSAMM CRY Pool Thawed [id number] selected 07/20/12 17:30 PSAMMLAB-- BLOOD BANK from 07/20/2012 6:30 PMCryoprecipitate CRY Pool Thawed [id number] p.Transfus 07/20/12 18:30 CRY Pool Thawed [id number] p.Transfus 07/20/12 18:30LAB--BLOOD BANK from 07/21/2012 10:36 AMAntibody Screen (Indirect Karishma) NEG ABO and Rh O POS LAB--BLOOD BANK from 07/21/2012 11:30 AMRed Blood Cells LR Irradiated (Preliminary Result)RCLR IR -1 [id number] selected 07/21/12 11:30 CBROW RCLR IR -1 [id number] selected 07/21/12 11:30 CBROWLAB-- BLOOD BANK from 07/21/2012 12:39 PMRed Blood Cells LR Irradiated RCLR IR -1 [id number] p.Transfus 07/21/12 12:39 LAB--BLOOD BANK from 2012 6:07 PMRed Blood Cells LR Irradiated RCLR IR -1 [id number] p.Transfus 07/21/12 18:07 LAB--BLOOD BANK from 07/23/2012 8:23 AMPlatelet Pheresis LR Irradiated PP LR IR #3 [id number] selected 08:23 THUGH (Preliminary Result)LAB--BLOOD BANK from 07/23/2012 9:58 AMPlatelet Pheresis LR Irradiated PP LR IR #3 [id number] p.Transfus 07/23/12 09:58 LAB--BLOOD BANK from 07/23/2012 10:45 AMCryoprecipitate (Preliminary Result)CRY Pool Thawed [id number] selected 07/23/12 10:45 THUGH CRY Pool Thawed [id number] selected 07/23/12 10:45 THUGHLAB-- BLOOD BANK from 07/23/2012 11:11 AMCryoprecipitate CRY Pool Thawed [id number] p.Transfus 07/23/12 11:11 LAB--BLOOD BANK from 07/23/2012 11:44 AMCryoprecipitate CRY Pool Thawed [id number] p.Transfus 07/23/12 11 :44 LAB--BLOOD BANK from 07/24/2012 5:19 AMPlatelet Pheresis LR Irradiated PP LR IR #2 [id number] selected 07/24/12 05:19 SBARR ( Preliminary Result)LAB--BLOOD BANK from 07/24/2012 5:41 AMPlatelet Pheresis LR Irradiated PP LR IR #2 [id number] p.Transfus 07/24/12 05:41 LAB --BLOOD BANK from 07/24/2012 12:12 PMRed Blood Cells LR Irradiated RCLR IR -1 [id number] selected 07/24/12 12:12 THUGH (Preliminary Result )LAB--BLOOD BANK from 07/24/2012 12:24 PMRed Blood Cells LR Irradiated RCLR IR -1 [id number] p.Transfus 07/24/12 12:24 LAB--BLOOD BANK from 9:21 AMPlatelet Pheresis LR Irradiated PP LR IR #3 [id number] selected 07/25/12 09:21 THUGH (Preliminary Result)LAB--BLOOD BANK from 07/25/2012 2:12 PMPlatelet Pheresis LR Irradiated PP LR IR #3 [id number] p.Transfus 07/25/12 14:12 LAB--BLOOD BANK from 07/26/2012 9: 13 AMAntibody Screen (Indirect Karishma) NEG ABO and Rh O POS LAB--BLOOD BANK from 07/26/2012 9:55 AMRed Blood Cells LR Irradiated RCLR IR -1 [id number] selected 07/26/12 09:55 CCHER (Preliminary Result)LAB--BLOOD BANK from 07/26/2012 10:22 AMRed Blood Cells LR Irradiated RCLR IR -1 [id number] p.Transfus 07/26/12 10:22 LAB--BLOOD BANK from 07/27/2012 9:19 AMPlatelet Pheresis LR Irradiated PP LR IR #2 [id number] selected 07/27/12 09:19 CCHER ( Preliminary Result)LAB--BLOOD BANK from 07/27/2012 10:05 AMPlatelet Pheresis LR Irradiated PP LR IR #2 [id number] p.Transfus 07/27/12 10:05 LAB --BLOOD BANK from 07/29/2012 5:51 AMPlatelet Pheresis LR Irradiated PP LR IR #2 [id number] selected 07/29/12 05:51 REVER (Preliminary Result)LAB--BLOOD BANK from 07/29/2012 6:34 AMPlatelet Pheresis LR Irradiated PP LR IR #2 [id number] p.Transfus 07/29/12 06:34 LAB--BLOOD BANK from 07/31/2012 6:30 AMPlatelet Pheresis LR Irradiated PP LR IR #2 [id number] selected 07/31/12 06:30 CSAL (Preliminary Result)LAB-- BLOOD BANK from 07/31/2012 6:41 AMPlatelet Pheresis LR Irradiated PP LR IR #2 [id number] p.Transfus 07/31/12 06:41 LAB--BLOOD BANK from 2012 9:00 AMAntibody Screen (Indirect Karishma) NEG ABO and Rh O POS LAB--BLOOD BANK from 07/31/2012 9:56 AMRed Blood Cells LR Irradiated RCLR IR -1 [id number] selected 07/31/12 09:56 SXCHA (Preliminary Result)LAB--BLOOD BANK from 07/31/2012 10:38 AMRed Blood Cells LR Irradiated RCLR IR -1 [id number] p.Transfus 07/31/12 10:38 LAB--BLOOD BANK from 08/01/2012 6:14 AMPlatelet Pheresis LR Irradiated PP LR IR [id number] selected 08/01/12 06:14 SBARR ( Preliminary Result)LAB--BLOOD BANK from 08/01/2012 6:27 AMPlatelet Pheresis LR Irradiated PP LR IR [id number] p.Transfus 08/01/12 06:27 LAB --BLOOD BANK from 08/03/2012 9:44 AMPlatelet Pheresis LR Irradiated PP LR IR #2 [id number] selected 08/03/12 09:44 KEYUR (Preliminary Result)LAB--BLOOD BANK from 08/03/2012 11:09 AMPlatelet Pheresis LR Irradiated PP LR IR #2 [id number] p.Transfus 08/03/12 11:09 LAB--BLOOD BANK from 08/04/2012 10:27 AMABO and Rh O POS Antibody Screen (Indirect Karishma) NEG LAB--BLOOD BANK from 08/04/2012 11:10 AMRed Blood Cells LR Irradiated RCLR IR -1 [id number] selected 08/04/12 11:10 MSEVE (Preliminary Result)LAB--BLOOD BANK from 08/04/2012 11 :13 AMRed Blood Cells LR Irradiated RCLR IR -1 [id number] p.Transfus 08/04/12 11:13 LAB--BLOOD BANK from 08/06/2012 8:02 AMPlatelet Pheresis LR Irradiated PP LR IR #2 [id number] selected 08:02 SXCHA (Preliminary Result)LAB--BLOOD BANK from 08/06/2012 8:37 AMPlatelet Pheresis LR Irradiated PP LR IR #2 [id number] p.Transfus 08/06/12 08:37 LAB--BLOOD BANK from 08/09/2012 6:48 AMPlatelet Pheresis LR Irradiated PP LR IR #1 [id number] selected 06:48 MSEVE (Preliminary Result)LAB--BLOOD BANK from 08/09/2012 6:54 AMPlatelet Pheresis LR Irradiated PP LR IR #1 [id number] p.Transfus 08/09/12 06:54 LAB--BLOOD BANK from 08/10/2012 8:01 AMPlatelet Pheresis LR Irradiated PP LR IR #1 [id number] selected 08:01 CCHER (Preliminary Result)LAB--BLOOD BANK from 08/10/2012 12:10 PMPlatelet Pheresis LR Irradiated PP LR IR #1 [id number] p.Transfus 08/10/12 12:10 LAB--BLOOD BANK from 08/11/2012 11:50 AMPlatelet Pheresis LR Irradiated PP LR IR #3 [id number] selected 11:50 CBROW (Preliminary Result)LAB--BLOOD BANK from 08/11/2012 1:03 PMPlatelet Pheresis LR Irradiated PP LR IR #3 [id number] p.Transfus 08/11/12 13:03 LAB--BLOOD BANK from 08/12/2012 8:43 AMPlatelet Pheresis LR Irradiated PP LR IR #2 [id number] selected 08:43 MSEVE (Preliminary Result)LAB--BLOOD BANK from 08/12/2012 10:32 AMABO and Rh O POS Antibody Screen (Indirect Karishma) NEG LAB--BLOOD BANK from 08/12/2012 11:18 AMRed Blood Cells LR Irradiated (Preliminary Result)RCLR IR -1 [id number] selected 08/12/12 11:18 KEYUR RCLR IR -1 [id number] selected 08/12/12 11:18 LAKINLAB-- BLOOD BANK from 08/12/2012 11:42 AMRed Blood Cells LR Irradiated RCLR IR -1 [id number] p.Transfus 08/12/12 11:42 LAB--BLOOD BANK from 08/13/2012 [...] Bronch Wash 8 % Color, Bronch Wash [place] Lymphocytes, Bronch Wash 10 % Macrophages, Bronch Wash 17 % Neutrophils, Bronch Wash 65 % RBC, Bronch Wash 79804 /mm3 Nucleated cells, Bronch Wash 120 /[id number] TESTING from 08/22/2012 2:35 PMAlbumin, Fluid 2.0 [...] Site: Port-a-cath Received : 07/10/12 13:39 Order#: [id number] Blood Culture #1 FINAL 07/16/12 04:15 No growth after 5 days of incubation. URIBE FOR RESULTS: * - NEW RESULT - RESULT WAS MODIFIED AFTER FINAL STATUS SET LAB--MICROBIOLOGY from 07/10/2012 1:30 PMBlood Culture #2 Source: Blood Collected: 07/10/12 13:30 Site: Peripheral, Left Arm Received : 07/10/12 13:39 Order#: [id number] Blood Culture #2 FINAL 07/16/12 04:15 No growth after 5 days of incubation. URIBE FOR RESULTS: * - NEW RESULT - RESULT WAS MODIFIED AFTER FINAL STATUS SET LAB--MICROBIOLOGY from 07/11/2012 3:40 AMUrine Culture Source: Urine Collected: 07/11/12 03:40 Site: Clean Catch Received : 07/11/12 03:47 Order#: [id number] Urine Culture FINAL 07/13/12 09:55 No growth URIBE FOR RESULTS: * - NEW RESULT - RESULT WAS MODIFIED AFTER FINAL STATUS SET LAB--MICROBIOLOGY from 08/12/2012 4:34 PMBlood Culture #1 Source: Blood Collected: 08/12/12 16:34 Site: Peripheral, Left Hand Received : 08/12/12 16:47 Order#: [id number] Aerobic bottle ONLY received Blood Culture #1 FINAL 08/18/12 06:15 No growth after 5 days of incubation. URIBE FOR RESULTS: * - NEW RESULT - RESULT WAS MODIFIED AFTER FINAL STATUS SET LAB--MICROBIOLOGY from 08/12/2012 4:38 PMBlood Culture #2 A Source: Blood Collected: 08/12/12 16:38 Site: Line, Central Received : 08/12/12 16:47 Order#: [id number] Critical value called to and read back [...] 16:55 Site: Received : 08/12/12 17:06 Order#: [id number] Respiratory Virus Panel - PCR FINAL 08/13/12 [...] 17:10 Site: Received : 08/12/12 17:28 Order#: [id number] Gram Stain FINAL 08/12/12 17:47 OIF=Oil Immersion Field LPF=Low Power Field 10 or more epithelial cells per low power (10X) field. This specimen is not food service sales representatives of lower respiratory ree, therefore it is unacceptable for culture. Respiratory Care has been notified that the specimen must be recollected. Sputum/Lower Respiratory Culture CANCELLED 08/12/12 17:47 - cancelled on 08/12/12 17:47 by [facility] Specimen unacceptable. URIBE FOR RESULTS: * - NEW RESULT - RESULT WAS MODIFIED AFTER FINAL STATUS SET Legionella pneumophila grp 1A Urine Ag Source: Urine Collected: 08/12/12 17:10 Site: Clean Catch Received : 08/12/12 17:28 Order#: [id number] Leg. pneumophilia grp 1A urine Ag FINAL 08/12/12 17:45 Negative URIBE FOR RESULTS: * - NEW RESULT - RESULT WAS MODIFIED AFTER FINAL STATUS SET LAB--MICROBIOLOGY from 08/14/2012 4:48 PMCryptococcal Antigen, Blood Source: Blood Collected: 08/14/12 16:48 Site: Received : 08/14/12 16:55 Order#: [id number] Cryptococcal Antigen, Blood FINAL 08/14/12 19:33 Negative URIBE FOR RESULTS: * - NEW RESULT - RESULT WAS MODIFIED AFTER FINAL STATUS SET LAB--MICROBIOLOGY from 08/15/2012 11:40 AMAFB (Acid Fast) Culture and smear ( Preliminary Result) Source: Surgical-Tissue Collected: 11:40 Site: L arm Received : 08/15/12 13:08 Order#: [id number] Stain, Acid Fast FINAL 08/16/12 13:48 No acid fast bacilli seen AFB Culture PLATED URIBE FOR RESULTS: * - NEW RESULT - RESULT WAS MODIFIED AFTER FINAL STATUS SET Fungal Culture and smear A (Preliminary Result) Source: Surgical-Tissue Collected: 08/15/12 11:40 Site: L arm Received : 08/15/12 13:08 Order#: [id number] Calcofluor White Stain FINAL 08/16/12 14:25 Few Fungal elements (hyphal forms) seen Fungal Culture PRELIM 08/19/12 13:46 Mold being identified scant amount URIBE FOR RESULTS: * - NEW RESULT - RESULT WAS MODIFIED AFTER FINAL STATUS SET Tissue Culture (Aerobic and Anaerobic) with Smear A (Preliminary Result) Source: Surgical-Tissue Collected: 08/15/12 11:40 Site: L arm Received : 08/15/12 13:07 Order#: [id number] Result called to Raul Castro RN 08/18/2012 [...] Left Upper Received : 08/15/12 13:06 Order#: [id number] Stain, Acid Fast FINAL 08/16/12 13:48 No acid fast bacilli seen AFB Culture PLATED URIBE FOR RESULTS: * - NEW RESULT - RESULT WAS MODIFIED AFTER FINAL STATUS SET Bronchial Culture and smear Source: Bronchial Washing Collected: 08/15/12 12:33 Site: Left Upper Received : 08/15/12 13:05 Order#: [id number] Gram Stain FINAL 08/15/12 13:51 OIF=Oil Immersion [...] Left Upper Received : 08/15/12 13:06 Order#: [id number] Calcofluor White Stain FINAL 08/16/12 14:24 No [...] Pleural lft Received : 08/22/12 15:23 Order#: [id number] Gram Stain FINAL 08/22/12 16:19 OIF=Oil Immersion [...] Pleural lft Received : 08/22/12 15:23 Order#: [id number] Calcofluor White Stain FINAL 08/23/12 13:53 No [...] Protein Pos 1+ A (Negative ) Specific Carpenter 1.022 (1.003-1.030 ) Collection Type: Clean Catch Urobilinogen Negative mg/dL (-<1.0 mg/dL) Epithelial Cells 5-10 /HPF Granular Casts 1-3 /LPF A WBC 0-2 /HPF (0-4 /HPF)
[2016-09-28] MEDS ORDERED: SODIUM CHLORIDE FLUSH 3 ML SYR IV ONE (18:25)
[2016-09-28] MEDS ORDERED: SODIUM CHLORIDE FLUSH 10 ML SYR IV PRN (18:25)
[2016-09-28 18:30] LABS: MEAN CORPUSCULAR HGB CONC 33.3 g/dL (31.0-37.0); MEAN CORPUSCULAR VOLUME 95 FL (80-100); MEAN PLATELET VOLUME 10.5 FL (6.0-9.5); PLATELET COUNT 131 10^3uL (150-450); WHITE BLOOD COUNT 10.64 10^3uL (4.0-11.0)
[2016-09-28 18:40] LABS: ALBUMIN 3.8 g/dL (3.4-5.0); ALKALINE PHOSPHATASE 341 U/L (38-126); ANION GAP 14.5 MEQ/L (3-15); BUN/CREATININE RATIO 16 (10-20); CALCULATED IONIZED CALCIUM 3.5 mg/dL (3.8-4.6); CREATINE KINASE 124 U/L (30-135); TOTAL PROTEIN 8.5 g/dL (6.4-8.5)
[2016-09-28 18:45] LABS: MEAN CORPUSCULAR HEMOGLOBIN 31.8 PG (26.0-34.0)
[2016-09-28 18:48] LABS: BAND NEUTROPHILS % 3 % (0-6); EOSINOPHILS % 2 % (0-4); LYMPHOCYTES # 4.1 #; MONOCYTES # 1.1 #; MONOCYTES % 11 % (3-11); RBC MORPH NORMAL (NORMAL); SEGMENTED NEUTROPHILS % 45 % (51-67); TOTAL CELLS COUNTED 100
[2016-09-28] MEDS ORDERED: NITROGLYCERIN SUBLINGUAL 0.4 MG (NITROQUICK) TABLET SL PRN (19:05)
[2016-09-28] MEDS ORDERED: ASPIRIN 81 MG CHEW (LOW-DOSE) PO ONE (19:05)
--- NOTE | 2016-09-28 19:21 | Diagnostic Imaging Report ---
INDICATION: Chest pain, weakness. DISCUSSION: Single portable upright view of the chest was obtained, comparison September 22, 2012. Interval removal of left chest wall [id number]. Normal heart size. Mild elevation of the right hemidiaphragm. No focal consolidation, pleural fluid, or pneumothorax. IMPRESSION: 1. No acute cardiopulmonary process. Dictated by: Dictated on workstation # [id number]
--- NOTE | 2016-09-28 19:22 | Diagnostic Imaging Report ---
PROCEDURE: CT head without contrast. TECHNIQUE: Multiple contiguous axial images were obtained through the brain without the use of intravenous contrast. Indication: Weakness and confusion. Comparison: 07/10/2012. Discussion: White matter hypoattenuation is nonspecific though not greater than expected for age related chronic small vessel ischemic disease, stable. No intracranial hemorrhage, mass, midline shift, or hydrocephalus. The ventricles and sulci are normal size and configuration for age. The visualized orbits, paranasal sinuses, mastoid air cells, and calvarium are unremarkable. Impression: 1. No acute intracranial abnormality identified. Dictated by: Dictated on workstation # [id number]
[2016-09-28 20:07] LABS: BILIRUBIN,URINE Negative (Negative); COLOR,URINE Yellow; GLUCOSE, URINE (UA) Negative (Negative); LEUKOCYTE ESTERASE ,URINE 1+ (Negative); UROBILINOGEN,URINE 0.2 mg/dL (0.2-1.0)
[2016-09-28 20:25] LABS: CLARITY,URINE Slightly Cloudy
[2016-09-28 20:26] LABS: RBC,URINE None Seen /HPF; URINE CENTRIFUGED VOLUME 12 mL
[2016-09-28 20:38] VITALS: BP 140/71
[2016-09-28 23:11] LABS: AMPHETAMINE SCREEN, URINE Negative (Negative); CANNABINOID SCREEN, URINE Negative (Negative); METHAMPHETAMINE SCREEN URINE S NEGATIVE (NEGATIVE); OPIATE SCREEN URINE Positive (Negative)
[2016-09-28 23:12] LABS: PROPOXYPHENE STAT NEGATIVE (NEGATIVE)
== END 2016-09-28 20:30 | disposition short-term general hospital (02) ==
LOC: ED 17:45
DX: I21.4 Non-ST elevation (NSTEMI) myocardial infarction (principal); I20.0 Unstable angina; I11.9 Hypertensive heart disease without heart failure; N17.9 Acute kidney failure, unspecified
CPT/HCPCS: 36415; 70450; 71010; 80053; 80307; 81003; 81015; 82140; 82550; 82553; 83605; 83880; 84443; 84484; 85025; 85610; 86140; 87088; 93005; 96360; 99284; A9270; G0480; J7030; 80320; 93010; 99285

== ENCOUNTER → 2016-09-28 | Outpatient (CLI) | payer MEDICARE | LOC: EMS 20:23 | DX: I21.4 Non-ST elevation (NSTEMI) myocardial infarction (principal); N17.9 Acute kidney failure, unspecified ==